=== PATIENT | male | born 1965 | race African-American/Black ===

== ENCOUNTER 2016-04-24 07:58 | Emergency (ER) | payer BC ==
[~2016-04-24] VITALS: Ht 180.3 cm; Wt 110.0 kg
[~2016-04-24 07:58] MED LIST: BENZ1 PO; CLOTCRE17 TOP; GLIP5 PO; LISI20 PO; METF500 PO; NEUR600T PO; RISP1 PO; RISPM2 PO; RIVA15 PO; RIVA20 PO
[2016-04-24 08:01] VITALS: BP 168/95; PULSE 91; RESP 16; TEMP 98.3; O2SAT 98
--- NOTE | 2016-04-24 08:55 | PD ---
HPI Chief Complaint: Cold / Flu Symptoms Time Seen by Provider: 08:49 Travel History International Travel<30 days: No Contact w/Intl Traveler<30days: No Traveled to known affect area: No History of Present Illness HPI 50-year-old Afro-[place]ander male coming in with history of upper respiratory symptoms including congestion, headache, postnasal drip, cough, ear pain, sore throat, and productive cough which is keeping him up at night. Patient denies nausea, vomiting, decreased appetite. Patient has had chills but does not feel he has had a fever. Patient states he's prone to sinus infections. Patient is a nonsmoker. No history of asthma or COPD. Has a history of MRSA. No known drug allergies. PFSH Past Medical History Hx Anticoagulant Therapy: Yes (XARELTO) Arthritis: No Blood Disorders: No Bipolar Disorder: Yes Anxiety: Yes Depression: Yes Heart Rhythm Problems: No Cancer: No Cardiovascular Problems: Yes (HTN) High Cholesterol: No Chemotherapy: No Chest Pain: Yes Congestive Heart Failure: No COPD: No Cerebrovascular Accident: No Diabetes: Yes Diminished Hearing: No Endocrine: Yes Gastrointestinal Disorders: No Genitourinary: Yes (renal problems) Headaches: Yes Hepatitis: Yes (C) Hiatal Hernia: No Hypertension: Yes Immune Disorder: Yes Musculoskeletal: Yes Neurologic: Yes Psychiatric: Yes (BIPOLAR, DEPRESSION, SCHIZOAFFECTIVE DISORDER) Reproductive: No Respiratory: Yes (PULMONARY EMBOLISM 11/21) Immunizations Current: Yes Radiation Therapy: No Renal Failure: Yes Schizophrenia: Yes Sickle Cell Disease: No Sleep Apnea: Yes Thyroid Disease: No Ulcer: No Past Surgical History Abdominal Surgery: No Arteriovenous Shunt: No Cardiac Surgery: No Ear Surgery: No Endocrine Surgery: No Eye Surgery: No Genitourinary Surgery: No Gynecologic Surgery: No Insulin Pump: No Joint Replacement: No Neurologic Surgery: No Oral Surgery: No Thoracic Surgery: No Other Surgery: Yes (lioma removed from back of neck and left side of back) Social History Alcohol Use: Yes (occasional) Tobacco Use: Yes (occasional) Substance Use: Yes Allergies-Medications (Allergen,Severity, Reaction): Coded Allergies: *MDRO Multi-Drug Resistant Organism (Verified Adverse Reaction, Unknown, ) MRSA (wounds) - 2001 & 2004 MRSA PCR (nares) negative - 06/11/15 & 06/13/15. Cleared per Infection Control Reported Meds & Prescriptions Reported Meds & Active Scripts Active Review of Systems Except as stated in HPI: all other systems reviewed are Neg General / Constitutional: No: Fever Eyes: No: Visual changes HENT: Positive: Vertigo, Sore Throat, Rhinitis, Rhinorrhea, Congestion, Earache , No: Headaches, Lightheadedness, Nosebleed, Neck Stiffness, Neck Pain, Masses , Gingival Bleeding, Dental Difficulties, Ear Discharge Cardiovascular: No: Chest Pain or Discomfort Respiratory: Positive: Cough, No: Shortness of Breath, Wheezing, Sneezing Gastrointestinal: No: Nausea, Vomiting, Diarrhea, Abdominal Pain Genitourinary: No: Dysuria Musculoskeletal: No: Pain Skin: No Rash Neurologic: No: Weakness Psychiatric: No: Depression Endocrine: No: Polydipsia Hematologic/Lymphatic: No: Easy Bruising Physical Exam Narrative GENERAL: Patient appears in mild to moderate distress. SKIN: Warm and mild diaphoresis. Normal color. Normal turgor. HEAD: Atraumatic. Normocephalic. Patient has moderate sinus tenderness in both frontal and maxillary sinuses. EYES: Pupils equal and round. No scleral icterus. No injection or drainage. ENT: No nasal bleeding and moderate purulent nasal discharge. Mucous membranes injected, boggy and moist. Posterior pharynx is cobblestoned with erythema and postnasal drip present. No significant lymphadenopathy. TMs are somewhat dull bilaterally with mild injection. NECK: Trachea midline. No JVD. Supple nontender CARDIOVASCULAR: Regular rate and rhythm. RESPIRATORY: No accessory muscle use. Coarse without wheeze, rhonchi, or rales to auscultation. Breath sounds equal bilaterally. GASTROINTESTINAL: Abdomen soft, non-tender, nondistended. Hepatic and splenic margins not palpable. MUSCULOSKELETAL: Extremities without clubbing, cyanosis, or edema. No obvious deformities. NEUROLOGICAL: Awake and alert. No obvious cranial nerve deficits. Motor grossly within normal limits. Five out of 5 muscle strength in the arms and legs. Normal speech. PSYCHIATRIC: Appropriate mood and affect; insight and judgment normal. Data Data Last Documented VS Vital Signs Date Time Temp Pulse Resp B/P Pulse Ox O2 Delivery O2 Flow Rate FiO2 04/24/16 08:01 98.3 91 16 168/95 98 MDM Medical Decision Making Medical Screen Exam Complete: Yes Emergency Medical Condition: Yes Differential Diagnosis Upper respiratory infection. Sinusitis. Postnasal drip, cough, Narrative Course Patient is medically stable at time of exam. Patient is given amoxicillin 875 twice a day 10 days. Patient is given Flonase nasal spray 2 sprays each nostril daily. Patient is given Robitussin DM 1 teaspoon every 4-6 hours when necessary 120 mL. Patient is given a note for work for today. Patient follow with his primary care physician or return to emergency department as needed. Diagnosis Primary Impression: Sinusitis, acute Qualified Code: J01.40 - Acute non-recurrent pansinusitis Referrals: Primary Care Physician Patient Instructions: General Instructions, Sinusitis (ED) Departure Forms: Work Release Enter return to work date: Apr 25, 2016 Additional Instructions: Patient is given amoxicillin 875 twice a day 10 days. Patient is given Flonase nasal spray 2 sprays each nostril daily. Patient is given Robitussin DM for cough 1 teaspoon every 4-6 hours when necessary 120 mL. Patient is given a note for work for today. Patient follow with his primary care physician or return to emergency department as needed. Med/Other Pt SpecificInfo: Prescription(s) given Scripts Guaifenesin-Dextromethorphan Liq (Guaifenesin DM Liq)10-100 Mg/5 Ml Liq10 Ml PO Q4H PRN (COUGH) #1 BOTTLE Ref 0 Prov:Vannessa Milan DO 04/24/16 Fluticasone Nasal [place] (Flonase Allergy Relief Children Nasal [place])50 Mcg/Act Spray2 [place] EACH NARE DAILY #1 BOTTLE 50 mcg/spray Prov:Vannessa Milan DO 04/24/16 Amoxicillin 875 Mg Qys530 Mg PO BID #20 TAB Prov:Vannessa Milan DO 04/24/16 Disposition: 01 DISCHARGE HOME Condition: Stable Reyes Amanda Apr 24, 2016 08:55
[2016-04-24] MEDS ORDERED: GUAISYP7 PO (08:57)
[2016-04-24] MEDS ORDERED: AMOX875T PO (08:57)
[2016-04-24] MEDS ORDERED: FLUT1SPR9 EACH NARE (08:57)
== END 2016-04-24 09:07 | disposition home or self-care (01) ==
LOC: NEPB 07:58
DX: J01.90 Acute sinusitis, unspecified (principal); F41.8 Other specified anxiety disorders; F31.9 Bipolar disorder, unspecified; I10 Essential (primary) hypertension; E11.9 Type 2 diabetes mellitus without complications; F25.9 Schizoaffective disorder, unspecified; F19.10 Other psychoactive substance abuse, uncomplicated; Z79.01 Long term (current) use of anticoagulants
CPT/HCPCS: 99283

== ENCOUNTER 2016-09-02 18:10 | Emergency (ER) | payer SELFPAY ==
[~2016-09-02 18:10] MED LIST changes: +AMOX875T PO; -BENZ1 PO; -CLOTCRE17 TOP; +FLUT1SPR9 EACH NARE; -GLIP5 PO; +GUAISYP7 PO; -LISI20 PO; -METF500 PO; -NEUR600T PO; -RISP1 PO; -RISPM2 PO; -RIVA15 PO; -RIVA20 PO
[2016-09-02 18:13] VITALS: BP 165/100; PULSE 66; RESP 15; TEMP 98.9; O2SAT 96
== END 2016-09-02 19:46 | disposition left against medical advice (07) ==
LOC: NED 18:10
DX: M79.673 Pain in unspecified foot (principal); Z53.21 Procedure and treatment not carried out due to patient leaving prior to being seen by health care provider
CPT/HCPCS: 99281

== ENCOUNTER 2016-09-07 12:06 | Emergency (ER) | payer SELFPAY ==
[~2016-09-07] VITALS: Ht 180.3 cm; Wt 118.0 kg
[2016-09-07 12:08] VITALS: BP 140/99; PULSE 112; RESP 20; TEMP 97.8; O2SAT 98
[2016-09-07 12:45] VITALS: BP 156/86; PULSE 52; RESP 20; TEMP 98.2; O2SAT 98
--- NOTE | 2016-09-07 12:56 | PD ---
Physical Exam Time Seen by Provider: 12:53 Narrative 50yo M c/o R foot pain and blisters x 2 days. Denies fever, vomiting. Says he smoked K2 yesterday and passed out and has decreased hearing now. Also c/o suicidal thoughts. Patient seen in triage. Awaiting bed placement. VS reviewed. Data Data Last Documented VS Vital Signs Date Time Temp Pulse Resp B/P Pulse Ox O2 Delivery O2 Flow Rate FiO2 09/07/16 12:45 98.2 52 20 156/86 98 Room Air MDM Supervised Visit with JESÚS: Marie Puente Sep 07, 2016 12:56
[2016-09-07 13:40] VITALS: BP_SYST 162; BP_SYST 193; BP_DIAS 106; BP_DIAS 94; PULSE 52; RESP 16; O2SAT 97
--- NOTE | 2016-09-07 13:54 | PD ---
HPI Chief Complaint: Psychiatric Symptoms Time Seen by Provider: 13:54 Travel History International Travel<30 days: No Contact w/Intl Traveler<30days: No Traveled to known affect area: No History of Present Illness HPI 50-year-old male with a history of diabetes presents to the emergency department voluntarily for evaluation of suicidal ideations. The patient states that he has a history of depression, bipolar disorder and substance abuse. States that he has been on a binge with smoking crack cocaine, K2, marijuana and drinking alcohol over the last 2-3 days. States he has not taken his Risperdal in about 5 days. States that he is having thoughts of wanting to hurt himself very denies any homicidal ideations. Denies any attempts to harm himself, denies any ingestion of substances in an attempt to harm himself. He complains of pain in his bilateral plantar feet that has been ongoing for several months. States that he also has pain that shoots from his right foot to his right knee that has been ongoing for several months. He has a history of prior right leg DVT several years ago. No other complaints. PFSH Past Medical History Hx Anticoagulant Therapy: Yes (XARELTO) Arthritis: No Blood Disorders: No Bipolar Disorder: Yes Anxiety: Yes Depression: Yes Heart Rhythm Problems: No Cancer: No Cardiovascular Problems: Yes (HTN) High Cholesterol: No Chemotherapy: No Chest Pain: Yes Congestive Heart Failure: No COPD: No Cerebrovascular Accident: No Diabetes: Yes Patient Takes Glucophage: No Diminished Hearing: No Endocrine: Yes Gastrointestinal Disorders: No Genitourinary: Yes (renal problems) Headaches: Yes Hepatitis: Yes (C) Hiatal Hernia: No Hypertension: Yes Immune Disorder: Yes Musculoskeletal: Yes Neurologic: Yes Psychiatric: Yes (BIPOLAR, DEPRESSION, SCHIZOAFFECTIVE DISORDER) Reproductive: No Respiratory: Yes (PULMONARY EMBOLISM 11/21) Immunizations Current: Yes Radiation Therapy: No Renal Failure: Yes Schizophrenia: Yes Sickle Cell Disease: No Sleep Apnea: Yes Thyroid Disease: No Ulcer: No Influenza Vaccination: Yes Past Surgical History Abdominal Surgery: No Arteriovenous Shunt: No Cardiac Surgery: No Ear Surgery: No Endocrine Surgery: No Eye Surgery: No Genitourinary Surgery: No Gynecologic Surgery: No Insulin Pump: No Joint Replacement: No Neurologic Surgery: No Oral Surgery: No Thoracic Surgery: No Other Surgery: Yes (liPoma removed from back of neck and left side of back) Social History Alcohol Use: Yes (ALCOHOLIC) Tobacco Use: Yes (1/2 PPD) Substance Use: Yes (CRACK AND MARIJUANA) Allergies-Medications (Allergen,Severity, Reaction): Coded Allergies: *MDRO Multi-Drug Resistant Organism (Verified Adverse Reaction, Unknown, ) MRSA (wounds) - 2001 & 2004 MRSA PCR (nares) negative - 06/11/15 & 06/13/15. Cleared per Infection Control Reported Meds & Prescriptions Reported Meds & Active Scripts Active Reported Metformin (Metformin HCl) 500 Mg Tab 500 Mg PO BIDPC With meals Benztropine (Benztropine Mesylate) 0.5 Mg Tab 1 Mg PO DAILY Risperdal (Risperidone) 4 Mg Tab 4 Mg PO HS Risperdal (Risperidone) 3 Mg Tab 3 Mg PO DAILY Review of Systems Except as stated in HPI: all other systems reviewed are Neg Physical Exam Narrative GENERAL: Well-nourished and well-developed male patient in no acute distress who is nontoxic appearing. SKIN: Warm and dry. HEAD: Normocephalic and atraumatic. EYES: No injection, drainage, or hyphema noted. PERRLA. EOMI. ENT: No nasal drainage noted. Oropharynx is clear. NECK: Supple and the trachea is midline. CARDIOVASCULAR: Regular rate and rhythm. RESPIRATORY: Breath sounds are equal bilaterally with no accessory muscle use, wheezing, rhonchi, or crackles. GASTROINTESTINAL: Abdomen is soft, non-tender, and nondistended. MUSCULOSKELETAL: No obvious deformities, swelling, cyanosis, or ecchymosis is present throughout the upper and lower extremities. Patient has full range of motion without any signs of neurovascular compromise. DP pulses are 2+ bilaterally. Bilateral plantar feet with callous formation. NEUROLOGICAL: Awake, alert, and oriented. Normal speech and gait. Cranial nerves are grossly intact. Data Data Last Documented VS Vital Signs Date Time Temp Pulse Resp B/P Pulse Ox O2 Delivery O2 Flow Rate FiO2 09/07/16 13:40 52 16 162/94 97 Room Air 09/07/16 12:45 98.2 Orders Complete Blood Count With Diff (09/07/16 13:53) Comprehensive Metabolic Panel (09/07/16 13:53) Psych Screen (09/07/16 13:53) Drug Screen, Random Urine (09/07/16 13:53) Alcohol (Ethanol) (09/07/16 13:53) Us Leg Venous Doppler (09/07/16 13:53) Labs Laboratory Tests Test 09/07/16 09/07/16 09/07/16 14:00 14:10 15:03 Urine Opiates Screen NEG Urine Barbiturates Screen NEG Urine Amphetamines Screen NEG Urine Benzodiazepines Screen NEG Urine Cocaine Screen POS Urine Cannabinoids Screen POS Sodium Level 141 MEQ/L Potassium Level 4.1 MEQ/L Chloride Level 106 MEQ/L Carbon Dioxide Level 29.5 MEQ/L Anion Gap 6 MEQ/L Blood Urea Nitrogen 11 MG/DL Creatinine 1.12 MG/DL Estimat Glomerular Filtration 85 ML/MIN Rate Random Glucose 120 MG/DL Calcium Level 9.1 MG/DL Total Bilirubin 0.9 MG/DL Aspartate Amino Transf 61 U/L (AST/SGOT) Alanine Aminotransferase 98 U/L (ALT/SGPT) Alkaline Phosphatase 68 U/L Total Protein 8.2 GM/DL Albumin 4.0 GM/DL Ethyl Alcohol Level LESS THAN 3 MG/DL White Blood Count 11.1 TH/MM3 Red Blood Count 4.84 MIL/MM3 Hemoglobin 15.5 GM/DL Hematocrit 45.8 % Mean Corpuscular Volume 94.7 FL Mean Corpuscular Hemoglobin 32.0 PG Mean Corpuscular Hemoglobin 33.8 % Concent Red Cell Distribution Width 12.3 % Platelet Count 220 TH/MM3 Mean Platelet Volume 8.5 FL Neutrophils (%) (Auto) 67.8 % Lymphocytes (%) (Auto) 22.5 % Monocytes (%) (Auto) 6.5 % Eosinophils (%) (Auto) 2.6 % Basophils (%) (Auto) 0.6 % Neutrophils # (Auto) 7.5 TH/MM3 Lymphocytes # (Auto) 2.5 TH/MM3 Monocytes # (Auto) 0.7 TH/MM3 Eosinophils # (Auto) 0.3 TH/MM3 Basophils # (Auto) 0.1 TH/MM3 CBC Comment DIFF FINAL Differential Comment MDM Medical Decision Making Medical Screen Exam Complete: Yes Emergency Medical Condition: Yes Differential Diagnosis Differential: Depression versus adjustment reaction versus anxiety versus PTSD versus psychosis NOS versus mood disorder NOS versus substance induced mood disorder versus ODD versus adjustment reaction versus schizophrenia versus bipolar disorder versus schizoaffective versus electrolyte abnormality Narrative Course Patient presents voluntarily for psychiatric evaluation. Physical examination and vital signs are essentially unremarkable. Patient is complaining of feet pain and right knee and lower leg pain. Physical examination revealed he has calluses on the bottom of his feet, otherwise unremarkable. He's had a right leg DVT. Psych screen has been ordered. CBC is unremarkable. CMP shows slightly elevated LFTs, otherwise unremarkable. Urine tox is positive for cocaine and cannabinoids. EtOH is less than 3. Ultrasound of the right leg is negative for DVT. Patient is medically clear for psychiatric evaluation and disposition. Diagnosis Primary Impression: Substance induced mood disorder Marie Ribeiro Sep 07, 2016 13:54
[2016-09-07] MEDS ORDERED: RISP3 PO (13:57)
[2016-09-07] MEDS ORDERED: RISP4TAB41 PO (13:57)
[2016-09-07] MEDS ORDERED: cogentin (13:57)
[2016-09-07] MEDS ORDERED: METF500T PO (13:58)
[2016-09-07] MEDS ORDERED: BENZ0.5T PO (13:58)
--- NOTE | 2016-09-07 14:38 | RADRPT ---
EXAM DATE/TIME: 09/07/2016 14:07 [facility] COMPARISON: US LEG RIGHT VENOUS DOPPLER, November 22, 2015, 13:28. INDICATIONS : Right leg pain and swelling. MEDICAL HISTORY : Hypertension. Deep venous thrombosis. Hepatitis C. Head trauma. Headache. Pulmonary embolism. Ches t pain. Dyspnea. Sleep apnea. Renal disease and failure. UTI. Diabetes. Lipoma. PTSD. Schizophrenia. Bipolar disorder. Depression. Anxiety. Substance use. Anticoagulant therapy, Xarelto. MRSA. SURGICAL HISTORY : Lipoma back and neck. ENCOUNTER: Subsequent ACUITY: 3 days PAIN SCORE: 4/10 LOCATION: Right leg. TECHNIQUE: Venous ultrasound of the leg was performed from the inguinal ligament to the proximal calf. Real-cathy e, color Doppler and spectral tracing, compression and augmentation techniques were used. FINDINGS: There is normal compressibility of the deep venous system from the inguinal region to the proximal ca lf. No echogenic clot is seen in the lumen of the common femoral, femoral, popliteal, and posterior tibial veins. There is a normal response of the venous system to proximal and distal augmentation an d respiration. CONCLUSION: Negative for deep venous thrombosis. Per Slaughter MD FACR on September 07, 2016 at 14:36 Board Certified Radiologist. This report was verified electronically.
[2016-09-07 14:39] LABS: AMPHETAMINE, URINE NEG (NEG); BARBITURATES, URINE NEG (NEG); COCAINE, URINE POS (NEG)
[2016-09-07 14:50] LABS: ALT (GPT) 98 U/L (12-78); ANION GAP 6 MEQ/L (5-15); AST (GOT) 61 U/L (15-37); BICARBONATE 29.5 MEQ/L (21.0-32.0); BLOOD UREA NITROGEN 11 MG/DL (7-18); CHLORIDE 106 MEQ/L (98-107); GLOMERULAR FILTRATION RATE 85 ML/MIN (>89); POTASSIUM 4.1 MEQ/L (3.5-5.1); SODIUM (NA) 141 MEQ/L (136-145)
[2016-09-07 14:52] LABS: ALKALINE PHOSPHATASE 68 U/L (45-117); TOTAL BILIRUBIN ADULT 0.9 MG/DL (0.2-1.0)
[2016-09-07 15:24] LABS: AUTOMATED NEUTROPHIL # 7.5 TH/MM3 (1.8-7.7); BASOPHIL # 0.1 TH/MM3 (0-0.2); BASOPHIL % 0.6 % (0.0-2.0); EOSINOPHIL # 0.3 TH/MM3 (0-0.4); EOSINOPHIL % 2.6 % (0.0-4.0); HEMATOCRIT 45.8 % (39.0-51.0); HEMO FLAGS DIFF FINAL; LYMPH % 22.5 % (9.0-44.0); LYMPHOCYTE # 2.5 TH/MM3 (1.0-4.8); MEAN CELL VOLUME 94.7 FL (80.0-100.0); MEAN CORPUSCULAR HGB CONC 33.8 % (32.0-36.0); MONO % 6.5 % (0.0-8.0); NEUT % 67.8 % (16.0-70.0); PLATELET COUNT 220 TH/MM3 (150-450); RED BLOOD COUNT 4.84 MIL/MM3 (4.50-5.90); RED CELL DISTRIBUTION WIDTH 12.3 % (11.6-17.2); WHITE BLOOD COUNT 11.1 TH/MM3 (4.0-11.0)
--- NOTE | 2016-09-07 17:30 | PD ---
History of Present Illness Chief Complaint: Psychiatric Symptoms Time Seen by Provider: 17:00 Travel History International Travel<30 Days: No Contact w/Intl Traveler<30days: No Known affected area: No Legal Status Legal Status: Voluntary History of Present Illness: 50-year-old male who brought himself to the emergency department with complaints of suicidal thinking after going on a binge of crack cocaine use, alcohol use and marijuana use. Patient describes a multiyear history of drug and alcohol abuse. He doesn't have an actual plan to kill himself at this time but is surprised to note this physician is not inclined to admit him for psychiatric reasons in the face of his drug abuse. Patient is therefore stating that he wants to get help with detox and rehabilitation and he is willing to return to [facility]. This physician made the observation the patient doesn't really want to kill himself if he wants detox and rehabilitation and the patient agrees. Therefore the patient does not appear to be truly suicidal or depressed but rather unhappy with his circumstances and himself for continuing to use drugs. This physician does not feel the patient should be Yin acted were admitted to a psychiatric unit for these issues. It was explained to the patient that [facility] is the license drug and alcohol treatment facility in this area. They are more likely to accept him for treatment if he is there in front of them asking for assistance. The patient agrees with this plan. PFSH Past Medical History Hx Anticoagulant Therapy: Yes (XARELTO) Arthritis: No Blood Disorders: No Bipolar Disorder: Yes Anxiety: Yes Depression: Yes Heart Rhythm Problems: No Cancer: No Cardiovascular Problems: Yes (HTN) High Cholesterol: No Chemotherapy: No Chest Pain: Yes Congestive Heart Failure: No COPD: No Cerebrovascular Accident: No Diabetes: Yes Patient Takes Glucophage: No Diminished Hearing: No Endocrine: Yes Gastrointestinal Disorders: No Genitourinary: Yes (renal problems) Headaches: Yes Hepatitis: Yes (C) Hiatal Hernia: No Hypertension: Yes Immune Disorder: Yes Musculoskeletal: Yes Neurologic: Yes Psychiatric: Yes (BIPOLAR, DEPRESSION, SCHIZOAFFECTIVE DISORDER) Reproductive: No Respiratory: Yes (PULMONARY EMBOLISM 11/21) Immunizations Current: Yes Radiation Therapy: No Renal Failure: Yes Schizophrenia: Yes Sickle Cell Disease: No Sleep Apnea: Yes Thyroid Disease: No Ulcer: No Influenza Vaccination: Yes Past Surgical History Abdominal Surgery: No Arteriovenous Shunt: No Cardiac Surgery: No Ear Surgery: No Endocrine Surgery: No Eye Surgery: No Genitourinary Surgery: No Gynecologic Surgery: No Insulin Pump: No Joint Replacement: No Neurologic Surgery: No Oral Surgery: No Thoracic Surgery: No Other Surgery: Yes (liPoma removed from back of neck and left side of back) Psychiatric History Psychiatric History Hx Psychiatric Treatment: Patient states short of three weeks ago he was receiving outpatient services from [facility]. Patient states in 2008 he was diagnosis with PTSD, MDD, and Schizoaffective D/O. Patient reports that three months ago he stopped taking his medications. This physician does not find significant objective evidence of a true mental illness in the face of overwhelming drug and alcohol abuse. History of Inpatient Treatment: Yes Guns or firearms in home: No Social History Hx Alcohol Use: Yes (ALCOHOLIC) Hx Tobacco Use: Yes (1/2 PPD) Hx Substance Use: Yes (CRACK AND MARIJUANA) Substance Use Type: Alcohol, Nicotine/Cigarettes Other Substances Used: OCCASIONAL Hx of Substance Use Treatment: No Allergies-Medications (Allergen,Severity, Reaction): Coded Allergies: *MDRO Multi-Drug Resistant Organism (Verified Adverse Reaction, Unknown, ) MRSA (wounds) - 2001 & 2004 MRSA PCR (nares) negative - 06/11/15 & 06/13/15. Cleared per Infection Control Reported Meds & Prescriptions Reported Meds & Active Scripts Active Reported Metformin (Metformin HCl) 500 Mg Tab 500 Mg PO BIDPC With meals Benztropine (Benztropine Mesylate) 0.5 Mg Tab 1 Mg PO DAILY Risperdal (Risperidone) 4 Mg Tab 4 Mg PO HS Risperdal (Risperidone) 3 Mg Tab 3 Mg PO DAILY Review of Systems Except as stated in HPI: all other systems reviewed are Neg Exam Alert: Yes [place]: Person, Place, Date, Situation Mood: Calm Affect: Appropriate Speech: Clear, Logical Eye Contact: Normal Memory Intact: Immediate, Recent, Remote Insight/Judgement Adequate MDM Medical Decision Making Medical Record Reviewed: Yes Assessment/Plan This is a 50-year-old male with a multiyear history of crack cocaine abuse, alcohol abuse, cannabis abuse, etc. He came in voluntarily with suicidal thinking which appears to be situational. He is unhappy with himself or his polysubstance abuse. This physician does not find the patient suffers from significant major mental illness that is unrelated to his drug and alcohol abuse. As he is primarily wanting drug and alcohol treatment at this time, he is not deemed to be acutely suicidal but rather manipulative. This physician feels it is inappropriate and counter therapeutic to admit him to a psychiatric facility that is not license for detox and rehabilitation. Rather he is being referred to [facility] for further treatment. Orders Complete Blood Count With Diff (09/07/16 13:53) Comprehensive Metabolic Panel (09/07/16 13:53) Psych Screen (09/07/16 13:53) Drug Screen, Random Urine (09/07/16 13:53) Alcohol (Ethanol) (09/07/16 13:53) Us Leg Venous Doppler (09/07/16 13:53) Diet Regular Basic (09/07/16 Dinner) Results Vital Signs Date Time Temp Pulse Resp B/P Pulse Ox O2 Delivery O2 Flow Rate FiO2 09/07/16 13:40 52 16 162/94 97 Room Air 09/07/16 12:45 98.2 52 20 156/86 98 Room Air Laboratory Tests Test 09/07/16 09/07/16 09/07/16 14:00 14:10 15:03 Urine Opiates Screen NEG Urine Barbiturates Screen NEG Urine Amphetamines Screen NEG Urine Benzodiazepines Screen NEG Urine Cocaine Screen POS Urine Cannabinoids Screen POS Sodium Level 141 Potassium Level 4.1 Chloride Level 106 Carbon Dioxide Level 29.5 Anion Gap 6 Blood Urea Nitrogen 11 Creatinine 1.12 Estimat Glomerular Filtration 85 Rate Random Glucose 120 Calcium Level 9.1 Total Bilirubin 0.9 Aspartate Amino Transf 61 (AST/SGOT) Alanine Aminotransferase 98 (ALT/SGPT) Alkaline Phosphatase 68 Total Protein 8.2 Albumin 4.0 Ethyl Alcohol Level LESS THAN 3 White Blood Count 11.1 Red Blood Count 4.84 Hemoglobin 15.5 Hematocrit 45.8 Mean Corpuscular Volume 94.7 Mean Corpuscular Hemoglobin 32.0 Mean Corpuscular Hemoglobin 33.8 Concent Red Cell Distribution Width 12.3 Platelet Count 220 Mean Platelet Volume 8.5 Neutrophils (%) (Auto) 67.8 Lymphocytes (%) (Auto) 22.5 Monocytes (%) (Auto) 6.5 Eosinophils (%) (Auto) 2.6 Basophils (%) (Auto) 0.6 Neutrophils # (Auto) 7.5 Lymphocytes # (Auto) 2.5 Monocytes # (Auto) 0.7 Eosinophils # (Auto) 0.3 Basophils # (Auto) 0.1 CBC Comment DIFF FINAL Differential Comment Diagnosis Primary Impression: Adjustment disorder with mixed disturbance of emotions and conduct Additional Impressions: Cocaine abuse Alcohol abuse Problem Qualifiers Mark Carrillo MD Sep 07, 2016 17:30
[2016-09-07 18:33] VITALS: BP 132/71; PULSE 50; RESP 16; O2SAT 98
== END 2016-09-07 21:57 | disposition home or self-care (01) ==
LOC: NEPE 12:06 → NEPJ 21:57
DX: F43.25 Adjustment disorder with mixed disturbance of emotions and conduct (principal); F14.10 Cocaine abuse, uncomplicated; F10.10 Alcohol abuse, uncomplicated; I10 Essential (primary) hypertension; E11.9 Type 2 diabetes mellitus without complications; F20.9 Schizophrenia, unspecified; F31.9 Bipolar disorder, unspecified; F41.9 Anxiety disorder, unspecified
CPT/HCPCS: 80053; 80307; 85025; 93971

== ENCOUNTER 2016-10-12 11:53 | Emergency (ER) | payer SELFPAY ==
[~2016-10-12] VITALS: Ht 180.3 cm; Wt 90.0 kg
[~2016-10-12 11:53] MED LIST changes: -AMOX875T PO; +BENZ0.5T PO; -FLUT1SPR9 EACH NARE; -GUAISYP7 PO; +METF500T PO; +RISP3 PO; +RISP4TAB41 PO
[2016-10-12 11:55] VITALS: BP 189/94; PULSE 92; RESP 17; TEMP 98.7; O2SAT 98
--- NOTE | 2016-10-12 12:06 | PD ---
Physical Exam Time Seen by Provider: 12:05 Narrative 50 y/o male with 2-3 days of R leg pain/ swelling. Vital signs reviewed. Seen at triage desk. Awaiting bed placement. Data Data Last Documented VS Vital Signs Date Time Temp Pulse Resp B/P Pulse Ox O2 Delivery O2 Flow Rate FiO2 10/12/16 11:55 98.7 92 17 189/94 98 MDM Medical Record Reviewed: Yes Supervised Visit with JESÚS: Cleveland Villagomez Oct 12, 2016 12:05
[2016-10-12] MEDS ORDERED: SODIUM CHLOR 0.9% 1000 ML INJ 1,000 ML IV ONE (12:45)
[2016-10-12 12:54] LABS: AUTOMATED NEUTROPHIL # 6.9 TH/MM3 (1.8-7.7); BASOPHIL # 0.1 TH/MM3 (0-0.2); BASOPHIL % 0.7 % (0.0-2.0); EOSINOPHIL # 0.1 TH/MM3 (0-0.4); EOSINOPHIL % 0.7 % (0.0-4.0); HEMATOCRIT 39.2 % (39.0-51.0); HEMO FLAGS DIFF FINAL; LYMPH % 19.6 % (9.0-44.0); LYMPHOCYTE # 1.8 TH/MM3 (1.0-4.8); MEAN CELL VOLUME 95.5 FL (80.0-100.0); MEAN CORPUSCULAR HEMOGLOBIN 32.4 PG (27.0-34.0); MONO % 4.9 % (0.0-8.0); NEUT % 74.1 % (16.0-70.0); PLATELET COUNT 302 TH/MM3 (150-450); WHITE BLOOD COUNT 9.4 TH/MM3 (4.0-11.0)
[2016-10-12 13:14] LABS: ANION GAP 8 MEQ/L (5-15); AST (GOT) 15 U/L (15-37); BICARBONATE 27.3 MEQ/L (21.0-32.0); BLOOD UREA NITROGEN 7 MG/DL (7-18); CHLORIDE 107 MEQ/L (98-107); GLOMERULAR FILTRATION RATE 88 ML/MIN (>89); POTASSIUM 3.5 MEQ/L (3.5-5.1); SODIUM (NA) 142 MEQ/L (136-145)
[2016-10-12 13:17] LABS: ALKALINE PHOSPHATASE 54 U/L (45-117); ALT (GPT) 25 U/L (12-78); TOTAL BILIRUBIN ADULT 0.6 MG/DL (0.2-1.0)
--- NOTE | 2016-10-12 14:49 | PD ---
HPI Chief Complaint: Skin Problem Time Seen by Provider: 12:26 Travel History International Travel<30 days: No Contact w/Intl Traveler<30days: No Traveled to known affect area: No History of Present Illness HPI This is a 50-year-old male who is homeless, has a history of psychiatric disease and substance abuse who presents to the emergency department with pain in both of his feet, constant, severe. He says he's been homeless and he hasn' t been taking care of himself. He does have diabetes and is worried he might have an infection in his feet. His pain and is getting worse and he has pain over his calluses. He denies any fevers or chills. He needs refills on all of his medication. PFSH Past Medical History Hx Anticoagulant Therapy: Yes (XARELTO) Arthritis: No Autoimmune Disease: Yes (hep c) Blood Disorders: No Bipolar Disorder: Yes Anxiety: Yes Depression: Yes Heart Rhythm Problems: No Cancer: No Cardiovascular Problems: Yes (HTN) High Cholesterol: No Chemotherapy: No Chest Pain: Yes Congestive Heart Failure: No COPD: No Cerebrovascular Accident: No Diabetes: Yes Patient Takes Glucophage: No Diminished Hearing: No Endocrine: Yes Gastrointestinal Disorders: No Genitourinary: Yes (renal problems) Headaches: Yes Hepatitis: Yes (C) Hiatal Hernia: No Hypertension: Yes Immune Disorder: Yes Musculoskeletal: Yes Neurologic: Yes Psychiatric: Yes (BIPOLAR, DEPRESSION, SCHIZOAFFECTIVE DISORDER) Reproductive: No Respiratory: Yes (PULMONARY EMBOLISM 11/21) Immunizations Current: Yes Radiation Therapy: No Renal Failure: Yes Schizophrenia: Yes Sickle Cell Disease: No Sleep Apnea: Yes Thyroid Disease: No Ulcer: No Past Surgical History Abdominal Surgery: No Arteriovenous Shunt: No Cardiac Surgery: No Ear Surgery: No Endocrine Surgery: No Eye Surgery: No Genitourinary Surgery: No Gynecologic Surgery: No Insulin Pump: No Joint Replacement: No Neurologic Surgery: No Oral Surgery: No Thoracic Surgery: No Other Surgery: Yes (liPoma removed from back of neck and left side of back) Social History Alcohol Use: Yes (ALCOHOLIC) Tobacco Use: Yes (1/2 PPD) Substance Use: Yes (CRACK AND MARIJUANA) Allergies-Medications (Allergen,Severity, Reaction): Coded Allergies: *MDRO Multi-Drug Resistant Organism (Verified Adverse Reaction, Unknown, ) MRSA (wounds) - 2001 & 2004 MRSA PCR (nares) negative - 06/11/15 & 06/13/15. Cleared per Infection Control Reported Meds & Prescriptions Reported Meds & Active Scripts Active Review of Systems Except as stated in HPI: all other systems reviewed are Neg Physical Exam Narrative GENERAL:Well appearing, no acute distress SKIN: Thickened calluses in the base of both feet. No open wounds. HEAD: Atraumatic. Normocephalic. EYES: Pupils equal and round. No injection or drainage. ENT: Moist mucous membranes NECK: Trachea midline. CARDIOVASCULAR: Regular rate and rhythm. No murmur appreciated. RESPIRATORY: Clear to auscultation. Breath sounds equal bilaterally. GASTROINTESTINAL: Abdomen soft, non-tender, nondistended. MUSCULOSKELETAL: No obvious deformities. NEUROLOGICAL: Awake and alert. No obvious cranial nerve deficits. Moving all extremities. PSYCHIATRIC: Appropriate mood and affect; insight and judgment normal. Data Data Last Documented VS Vital Signs Date Time Temp Pulse Resp B/P Pulse Ox O2 Delivery O2 Flow Rate FiO2 10/12/16 11:55 98.7 92 17 189/94 98 Orders Complete Blood Count With Diff (10/12/16 12:36) Comprehensive Metabolic Panel (10/12/16 12:36) ^ Insert Iv (10/12/16 12:36) Sodium Chlor 0.9% 1000 Ml Inj (Ns 1000 M (10/12/16 12:45) Labs Laboratory Tests Test 10/12/16 12:35 White Blood Count 9.4 TH/MM3 Red Blood Count 4.10 MIL/MM3 Hemoglobin 13.3 GM/DL Hematocrit 39.2 % Mean Corpuscular Volume 95.5 FL Mean Corpuscular Hemoglobin 32.4 PG Mean Corpuscular Hemoglobin 34.0 % Concent Red Cell Distribution Width 13.0 % Platelet Count 302 TH/MM3 Mean Platelet Volume 7.9 FL Neutrophils (%) (Auto) 74.1 % Lymphocytes (%) (Auto) 19.6 % Monocytes (%) (Auto) 4.9 % Eosinophils (%) (Auto) 0.7 % Basophils (%) (Auto) 0.7 % Neutrophils # (Auto) 6.9 TH/MM3 Lymphocytes # (Auto) 1.8 TH/MM3 Monocytes # (Auto) 0.5 TH/MM3 Eosinophils # (Auto) 0.1 TH/MM3 Basophils # (Auto) 0.1 TH/MM3 CBC Comment DIFF FINAL Differential Comment Sodium Level 142 MEQ/L Potassium Level 3.5 MEQ/L Chloride Level 107 MEQ/L Carbon Dioxide Level 27.3 MEQ/L Anion Gap 8 MEQ/L Blood Urea Nitrogen 7 MG/DL Creatinine 1.08 MG/DL Estimat Glomerular Filtration 88 ML/MIN Rate Random Glucose 99 MG/DL Calcium Level 9.0 MG/DL Total Bilirubin 0.6 MG/DL Aspartate Amino Transf 15 U/L (AST/SGOT) Alanine Aminotransferase 25 U/L (ALT/SGPT) Alkaline Phosphatase 54 U/L Total Protein 7.4 GM/DL Albumin 3.8 GM/DL [facility] Medical Decision Making Medical Screen Exam Complete: Yes Emergency Medical Condition: Yes Interpretation(s) Afebrile, mild tachycardia, hypertensive No leukocytosis Electrolytes are reassuring Differential Diagnosis Diabetes, diabetic neuropathy, diabetic foot infection, electrolyte abnormality , noncompliance Narrative Course This is a 50-year-old male who presents to the emergency department with a history of diabetes and homelessness as well as psychiatric disease requesting refills on his medication. He also has calluses on the base of both feet and was concerned that he may have an infection. Patient has no evidence of acute infection on the feet and he otherwise has a benign exam. Labs and vital signs are reassuring. I think he will be discharged home. Diagnosis Primary Impression: Diabetic neuropathy Qualified Code: E11.42 - Diabetic polyneuropathy associated with type 2 diabetes mellitus Patient Instructions: General Instructions Additional Instructions: If you develop severe chest pain, shortness of breath, sweating, lightheadedness , dizziness or difficulty breathing return to the emergency department immediately. Followup with your primary care physician in 2-3 days if your symptoms are not resolved. Med/Other Pt SpecificInfo: Prescription(s) given Scripts Gabapentin 100 Mg [id number] Mg PO TID PRN (PAIN SCALE 4 TO 10) #90 CAP Ref 0 Prov:Barbara Rainey MD 10/12/16 Benztropine 0.5 Mg Tab0.5 Mg PO HS #30 TAB Ref 0 Prov:Barbara Rainey MD 10/12/16 Risperidone (Risperdal)1 Mg Tab1 Mg PO DAILY #30 TAB Ref 0 Prov:Barbara Rainey MD 10/12/16 Metformin 500 Mg [id number] Mg PO BIDPC #60 TAB Ref 0 With meals Prov:Barbara Rainey MD 10/12/16 Barbara Rainey MD Oct 12, 2016 14:49
[2016-10-12] MEDS ORDERED: METF500T PO (14:55)
[2016-10-12] MEDS ORDERED: RISP1 PO (14:55)
[2016-10-12] MEDS ORDERED: GABA100C4 PO (14:55)
[2016-10-12] MEDS ORDERED: BENZ0.5T PO (14:55)
== END 2016-10-12 15:22 | disposition home or self-care (01) ==
LOC: NEPE 11:53
DX: E11.42 Type 2 diabetes mellitus with diabetic polyneuropathy (principal); I10 Essential (primary) hypertension; F17.200 Nicotine dependence, unspecified, uncomplicated; Z59.0 Homelessness
CPT/HCPCS: 80053; 85025; 96360; 99284; J7030

== ENCOUNTER 2016-11-17 16:57 | Emergency (ER) | payer SELFPAY ==
[~2016-11-17] VITALS: Ht 180.3 cm; Wt 85.0 kg
[~2016-11-17 16:57] MED LIST changes: +GABA100C4 PO; +RISP1 PO; -RISP3 PO; -RISP4TAB41 PO
[2016-11-17 17:01] VITALS: BP 181/98; PULSE 98; RESP 18; TEMP 97.8; O2SAT 98
[2016-11-17 17:44] LABS: AUTOMATED NEUTROPHIL # 4.8 TH/MM3 (1.8-7.7); BASOPHIL # 0.1 TH/MM3 (0-0.2); BASOPHIL % 1.1 % (0.0-2.0); EOSINOPHIL # 0.1 TH/MM3 (0-0.4); HEMO FLAGS DIFF FINAL; LYMPH % 25.8 % (9.0-44.0); LYMPHOCYTE # 1.9 TH/MM3 (1.0-4.8); MEAN CELL VOLUME 97.1 FL (80.0-100.0); MEAN CORPUSCULAR HEMOGLOBIN 33.6 PG (27.0-34.0); MEAN CORPUSCULAR HGB CONC 34.6 % (32.0-36.0); NEUT % 67.1 % (16.0-70.0); PLATELET COUNT 254 TH/MM3 (150-450); RED BLOOD COUNT 4.53 MIL/MM3 (4.50-5.90); RED CELL DISTRIBUTION WIDTH 13.2 % (11.6-17.2); WHITE BLOOD COUNT 7.2 TH/MM3 (4.0-11.0)
[2016-11-17 18:02] LABS: BLOOD, URINE NEG (NEG); COMMENT (UR) CULT NOT INDICATED; CULTURE IF INDICATED CULT NOT INDICATED; GLUCOSE,URINE NEG (NEG); KETONE, URINE NEG (NEG); MUCUS URINE FEW /lpf (OCC); NITRITE,URINE NEG (NEG); SQUAMOUS EPITHELIAL CELL URINE <1 /hpf (0-5); URINE COLOR YELLOW (YELLW/STRAW)
[2016-11-17] MEDS ORDERED: BENZ0.5T PO (18:03)
[2016-11-17 18:08] LABS: ANION GAP 5 MEQ/L (5-15); AST (GOT) 10 U/L (15-37); BICARBONATE 30.3 MEQ/L (21.0-32.0); BLOOD UREA NITROGEN 9 MG/DL (7-18); CHLORIDE 106 MEQ/L (98-107); GLOMERULAR FILTRATION RATE 88 ML/MIN (>89); POTASSIUM 3.7 MEQ/L (3.5-5.1); SODIUM (NA) 141 MEQ/L (136-145)
[2016-11-17 18:10] LABS: ALT (GPT) 21 U/L (12-78)
[2016-11-17 18:12] LABS: ALKALINE PHOSPHATASE 69 U/L (45-117); TOTAL BILIRUBIN ADULT 0.4 MG/DL (0.2-1.0)
[2016-11-17 18:13] LABS: ALCOHOL LESS THAN 3 MG/DL (0-5)
[2016-11-17 18:15] LABS: ACETAMINOPHEN LESS THAN 2.0 MCG/ML (10.0-30.0)
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
[2016-11-17 23:14] VITALS: BP 145/76; PULSE 54; RESP 18; O2SAT 96
[2016-11-18 02:10] VITALS: BP_SYST 161; BP_SYST 96; BP_DIAS 52; BP_DIAS 74; PULSE 55; PULSE 77; RESP 18; O2SAT 98; O2SAT 99
[2016-11-18 06:21] VITALS: BP 140/67; PULSE 51; RESP 18; O2SAT 96
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
[2016-11-18 11:37] VITALS: BP 140/67; PULSE 51; O2SAT 96
--- NOTE | 2016-11-18 11:54 | PD ---
Physical Exam Time Seen by Provider: 11:52 KEZIA Jiménez has evaluated the patient and the patient will be discharged home. He is going to follow up with Antonio Euceda tomorrow. Patient contracts safety and denies suicidal or homicidal ideations. Patient is medically cleared for discharge. Data Data Last Documented VS Vital Signs Date Time Temp Pulse Resp B/P (MAP) Pulse Ox O2 Delivery O2 Flow Rate FiO2 11/18/16 11:37 51 140/67 (91) 96 Room Air 11/18/16 06:21 18 11/17/16 17:01 97.8 Orders Orders Complete Blood Count With Diff (11/17/16 17:21) Comprehensive Metabolic Panel (11/17/16 17:21) Urinalysis - C+S If Indicated (11/17/16 17:21) Psych Screen (11/17/16 17:21) Drug Screen, Random Urine (11/17/16 17:21) Alcohol (Ethanol) (11/17/16 17:21) Salicylates (Aspirin) (11/17/16 17:21) Tylenol (Acetaminophen) (11/17/16 17:21) Diet 1800 Ada Cons Carb (11/18/16 Breakfast) Diet Regular Basic (11/18/16 Lunch) Labs Laboratory Tests Test 11/17/16 17:31 11/17/16 17:34 White Blood Count 7.2 TH/MM3 Red Blood Count 4.53 MIL/MM3 Hemoglobin 15.2 GM/DL Hematocrit 44.0 % Mean Corpuscular Volume 97.1 FL Mean Corpuscular Hemoglobin 33.6 PG Mean Corpuscular Hemoglobin Concent 34.6 % Red Cell Distribution Width 13.2 % Platelet Count 254 TH/MM3 Mean Platelet Volume 8.5 FL Neutrophils (%) (Auto) 67.1 % Lymphocytes (%) (Auto) 25.8 % Monocytes (%) (Auto) 5.0 % Eosinophils (%) (Auto) 1.0 % Basophils (%) (Auto) 1.1 % Neutrophils # (Auto) 4.8 TH/MM3 Lymphocytes # (Auto) 1.9 TH/MM3 Monocytes # (Auto) 0.4 TH/MM3 Eosinophils # (Auto) 0.1 TH/MM3 Basophils # (Auto) 0.1 TH/MM3 CBC Comment DIFF FINAL Differential Comment Blood Urea Nitrogen 9 MG/DL Creatinine 1.09 MG/DL Random Glucose 140 MG/DL Total Protein 7.5 GM/DL Albumin 3.7 GM/DL Calcium Level 8.6 MG/DL Alkaline Phosphatase 69 U/L Aspartate Amino Transf (AST/SGOT) 10 U/L Alanine Aminotransferase (ALT/SGPT) 21 U/L Total Bilirubin 0.4 MG/DL Sodium Level 141 MEQ/L Potassium Level 3.7 MEQ/L Chloride Level 106 MEQ/L Carbon Dioxide Level 30.3 MEQ/L Anion Gap 5 MEQ/L Estimat Glomerular Filtration Rate 88 ML/MIN Salicylates Level 2.9 MG/DL Acetaminophen Level LESS THAN 2.0 MCG/ML Ethyl Alcohol Level LESS THAN 3 MG/DL Urine Color YELLOW Urine Turbidity CLEAR Urine pH 6.0 Urine Specific Chapman 1.020 Urine Protein NEG mg/dL Urine Glucose (UA) NEG mg/dL Urine Ketones NEG mg/dL Urine Occult Blood NEG Urine Nitrite NEG Urine Bilirubin NEG Urine Urobilinogen LESS THAN 2.0 MG/DL Urine Leukocyte Esterase NEG Urine RBC LESS THAN 1 /hpf Urine WBC 1 /hpf Urine Squamous Epithelial Cells <1 /hpf Urine Mucus FEW /lpf Microscopic Urinalysis Comment CULT NOT INDICATED Urine Opiates Screen NEG Urine Barbiturates Screen NEG Urine Amphetamines Screen NEG Urine Benzodiazepines Screen NEG Urine Cocaine Screen POS Urine Cannabinoids Screen NEG MDM Supervised Visit with JESÚS: No Diagnosis Primary Impression: Suicidal ideation Additional Impression: Cocaine abuse Referrals: Primary Care Physician Psychiatrist [facility] Patient Instructions: Cocaine Abuse (ED), General Instructions Additional Instruction: Contract safety to your self and others Stop doing drugs Follow-up with psychiatry Follow-up with primary care provider Follow-up with Antonio Euceda Return to the emergency department immediately with worsening of symptoms Med/Other Pt SpecificInfo: No Meds Exist/No RX given Disposition: 01 DISCHARGE HOME Condition: Stable Marie Dudley [employer] Nov 18, 2016 11:54
== END 2016-11-18 12:37 | disposition home or self-care (01) ==
LOC: NEPD 16:57 → NEPJ 11-18 12:37
DX: F19.94 Other psychoactive substance use, unspecified with psychoactive substance-induced mood disorder (principal); F25.9 Schizoaffective disorder, unspecified; R45.851 Suicidal ideations; F14.90 Cocaine use, unspecified, uncomplicated; I10 Essential (primary) hypertension; E11.9 Type 2 diabetes mellitus without complications
CPT/HCPCS: 80053; 80307; 81001; 85025; 99284

== ENCOUNTER 2016-12-01 22:34 | Emergency (ER) | payer SELFPAY ==
[~2016-12-01] VITALS: Ht 180.3 cm; Wt 84.0 kg
[2016-12-01 22:40] VITALS: BP 162/84; PULSE 81; RESP 18; TEMP 99.1; O2SAT 97
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
[2016-12-01] MEDS ORDERED: ACETAMINOPHEN/HYDROcodone 325 MG/5 MG TAB PO ONE (23:45)
--- NOTE | 2016-12-01 23:45 | RADRPT ---
EXAM DATE/TIME: 12/01/2016 23:20 [facility] COMPARISON: HAND RIGHT COMPLETE ([id number]), June 14, 2015, 16:26. INDICATIONS : Right hand pain. MEDICAL HISTORY : None. SURGICAL HISTORY : None. ENCOUNTER: Initial ACUITY: 1 day PAIN SCORE: 8/10 LOCATION: Right hand. FINDINGS: 3 views of the right hand reveal acute nondisplaced fracture involving the distal metadiaphysis of th e fourth metacarpal. No angulation or distraction. No extension to the articular surface is appreciat ed. Dorsal soft tissue swelling. Remaining bony structures are unremarkable. CONCLUSION: Acute nondisplaced fourth metacarpal fracture as detailed above. Edmar Rivers Jr., MD on December 01, 2016 at 23:42 Board Certified Radiologist. This report was verified electronically.
[2016-12-01] MEDS ORDERED: HYDR-3533 PO (23:46)
== END 2016-12-02 01:15 | disposition home or self-care (01) ==
LOC: NEPD 22:34
DX: S62.304A Unspecified fracture of fourth metacarpal bone, right hand, initial encounter for closed fracture (principal); W22.09XA Striking against other stationary object, initial encounter; I10 Essential (primary) hypertension; Z86.711 Personal history of pulmonary embolism; Z79.01 Long term (current) use of anticoagulants; F20.9 Schizophrenia, unspecified
CPT/HCPCS: 29125; 73130

== ENCOUNTER 2017-07-30 07:11 | Emergency (ER) | payer OTHER ==
[~2017-07-30 07:11] MED LIST changes: -BENZ0.5T PO; +CYCL5TAB PO; +EC-N375T PO; -GABA100C4 PO; +LISI10TA3 PO; +PALI117P IM; -RISP1 PO
[2017-07-30 07:13] VITALS: BP 154/83; PULSE 76; RESP 16; TEMP 98.5; O2SAT 96
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
[2017-07-30 09:50] LABS: AUTOMATED NEUTROPHIL # 8.7 TH/MM3 (1.8-7.7); BASOPHIL # 0.1 TH/MM3 (0-0.2); BASOPHIL % 0.6 % (0.0-2.0); EOSINOPHIL # 0.1 TH/MM3 (0-0.4); HEMATOCRIT 38.7 % (39.0-51.0); HEMOGLOBIN 13.5 GM/DL (13.0-17.0); LYMPH % 19.9 % (9.0-44.0); LYMPHOCYTE # 2.4 TH/MM3 (1.0-4.8); MEAN CELL VOLUME 92.6 FL (80.0-100.0); MEAN CORPUSCULAR HEMOGLOBIN 32.3 PG (27.0-34.0); MEAN CORPUSCULAR HGB CONC 34.9 % (32.0-36.0); MEAN PLATELET VOLUME 8.2 FL (7.0-11.0); MONO % 5.3 % (0.0-8.0); MONOCYTE # 0.6 TH/MM3 (0-0.9); NEUT % 73.2 % (16.0-70.0); PLATELET COUNT 241 TH/MM3 (150-450); RED BLOOD COUNT 4.18 MIL/MM3 (4.50-5.90); RED CELL DISTRIBUTION WIDTH 12.4 % (11.6-17.2); WHITE BLOOD COUNT 11.8 TH/MM3 (4.0-11.0)
[2017-07-30 10:10] LABS: ALBUMIN 3.5 GM/DL (3.4-5.0); AST (GOT) 17 U/L (15-37); BICARBONATE 27.1 MEQ/L (21.0-32.0); BLOOD UREA NITROGEN 7 MG/DL (7-18); CALCIUM 8.7 MG/DL (8.5-10.1); CHLORIDE 107 MEQ/L (98-107); CREATININE 1.16 MG/DL (0.60-1.30); GLOMERULAR FILTRATION RATE 81 ML/MIN (>89); GLUCOSE,RANDOM 147 MG/DL (74-106); SODIUM (NA) 141 MEQ/L (136-145)
[2017-07-30 10:12] LABS: ALT (GPT) 33 U/L (12-78)
[2017-07-30 10:21] LABS: ALKALINE PHOSPHATASE 62 U/L (45-117); TOTAL BILIRUBIN ADULT 0.5 MG/DL (0.2-1.0)
[2017-07-30 10:35] LABS: ACETAMINOPHEN LESS THAN 2.0 MCG/ML (10.0-30.0)
[2017-07-30 17:44] VITALS: BP 150/82; PULSE 68; RESP 12; TEMP 99.5; O2SAT 98
[2017-07-30 19:46] VITALS: BP 157/83; PULSE 71; RESP 18; TEMP 99.1; O2SAT 94
[2017-07-31 01:05] VITALS: BP 169/89; PULSE 62; RESP 18; TEMP 99.1; O2SAT 97
--- NOTE | 2017-07-31 10:13 | PD ---
Physical Exam Time Seen by Provider: 10:11 KEZIA Talavera has evaluated the patient and cleared the patient for discharge. Data Data Last Documented VS Vital Signs Date Time Temp Pulse Resp B/P (MAP) Pulse Ox O2 Delivery O2 Flow Rate FiO2 07/31/17 01:05 99.1 62 18 169/89 (115) 97 07/30/17 19:46 Room Air Orders Orders Complete Blood Count With Diff (07/30/17 07:44) Comprehensive Metabolic Panel (07/30/17 07:44) Thyroid Stimulating Hormone (07/30/17 07:44) Psych Screen (07/30/17 07:44) Drug Screen, Random Urine (07/30/17 07:44) Alcohol (Ethanol) (07/30/17 07:44) Salicylates (Aspirin) (07/30/17 07:44) Tylenol (Acetaminophen) (07/30/17 07:44) Diet Diabetic (07/30/17 Dinner) Diet Regular Basic (07/31/17 Breakfast) Ed Discharge Order (07/31/17 10:13) Labs Laboratory Tests Test 07/30/17 09:10 07/30/17 09:40 White Blood Count 11.8 TH/MM3 Red Blood Count 4.18 MIL/MM3 Hemoglobin 13.5 GM/DL Hematocrit 38.7 % Mean Corpuscular Volume 92.6 FL Mean Corpuscular Hemoglobin 32.3 PG Mean Corpuscular Hemoglobin Concent 34.9 % Red Cell Distribution Width 12.4 % Platelet Count 241 TH/MM3 Mean Platelet Volume 8.2 FL Neutrophils (%) (Auto) 73.2 % Lymphocytes (%) (Auto) 19.9 % Monocytes (%) (Auto) 5.3 % Eosinophils (%) (Auto) 1.0 % Basophils (%) (Auto) 0.6 % Neutrophils # (Auto) 8.7 TH/MM3 Lymphocytes # (Auto) 2.4 TH/MM3 Monocytes # (Auto) 0.6 TH/MM3 Eosinophils # (Auto) 0.1 TH/MM3 Basophils # (Auto) 0.1 TH/MM3 CBC Comment DIFF FINAL Differential Comment Blood Urea Nitrogen 7 MG/DL Creatinine 1.16 MG/DL Random Glucose 147 MG/DL Total Protein 7.0 GM/DL Albumin 3.5 GM/DL Calcium Level 8.7 MG/DL Alkaline Phosphatase 62 U/L Aspartate Amino Transf (AST/SGOT) 17 U/L Alanine Aminotransferase (ALT/SGPT) 33 U/L Total Bilirubin 0.5 MG/DL Sodium Level 141 MEQ/L Potassium Level 4.0 MEQ/L Chloride Level 107 MEQ/L Carbon Dioxide Level 27.1 MEQ/L Anion Gap 7 MEQ/L Estimat Glomerular Filtration Rate 81 ML/MIN Thyroid Stimulating Hormone 3rd Gen 0.010 uIU/ML Salicylates Level 4.2 MG/DL Acetaminophen Level LESS THAN 2.0 MCG/ML Ethyl Alcohol Level LESS THAN 3 MG/DL Urine Opiates Screen NEG Urine Barbiturates Screen NEG Urine Amphetamines Screen NEG Urine Benzodiazepines Screen NEG Urine Cocaine Screen POS Urine Cannabinoids Screen POS MDM Supervised Visit with JESÚS: No Narrative Course KEZIA Robledo has evaluated the patient and cleared the patient for discharge. Patient contracts safety. Denies suicidal or homicidal ideations. Patient will be provided community resource packet to /PAULINO for follow-up. Has friends and family for support. Patient was medically cleared by alternate provider prior to psych screening. Patient has been evaluated by psychiatry and and is now cleared for discharge. Diagnosis Primary Impression: Adjustment disorder Additional Impression: Low TSH level Referrals: [facility] (Out patient) [facility] Primary Care Physician Psychiatrist [facility] Patient Instructions: General Instructions, Hyperthyroidism (ED), Mood Disorders (ED) Additional Instruction: Follow-up with primary care provider in regards to your low TSH level Contract safety to your self and others Follow-up with psychiatry Follow-up with primary care provider Follow-up with Jono Damon Return to the emergency department immediately with worsening of symptoms Med/Other Pt SpecificInfo: No Change to Meds, No Meds Exist/No RX given Disposition: 01 DISCHARGE HOME Condition: Stable Marie Dudley July 31, 2017 10:13
--- NOTE | 2017-07-31 10:15 | PD ---
History of Present Illness Chief Complaint: Psychiatric Symptoms Time Seen by Provider: 09:59 Travel History International Travel<30 Days: No Contact w/Intl Traveler<30days: No Known affected area: No Legal Status Legal Status: Voluntary History of Present Illness: This is a 51 year-old, , -[place] male who presents voluntarily to this facility for reported depression and suicidal ideation. Patient is well- known to this facility. His last inpatient admission was 07/02/15 at this facility for an attempted overdose. Patient was admitted to the medical side initially then transferred for psychiatric treatment. Reviewed electronic medical record, labs, and discussed case with staff. Patient was evaluated in his room in [facility]. He was found lying quietly on his bed in no apparent distress, alert and oriented X 4 his speech is clear, logical and organized. There is no indication of internal stimulation or thought blocking. He reports that he has been compliant with follow-up at [facility] and his last injection was 07/31/17. He denies suicidal ideation, homicidal ideation, auditory or visual hallucinations. I can elicit no delusional material. His mood is good his affect is euthymic. He reports that he has spoken by telephone with his mother who is sending him a bus ticket to return to [place]. Patient is requesting to be discharged. He maintains eye contact throughout, answers all questions appropriately, and shows no outward signs of distress. PFSH Past Medical History Hx Anticoagulant Therapy: Yes (XARELTO) Arthritis: No Autoimmune Disease: Yes (hep c) Blood Disorders: No Bipolar Disorder: Yes Anxiety: Yes Depression: Yes Heart Rhythm Problems: No Cancer: No Cardiovascular Problems: Yes (HTN, DVT) High Cholesterol: No Chemotherapy: No Chest Pain: Yes Congestive Heart Failure: No COPD: No Cerebrovascular Accident: No Diabetes: Yes Patient Takes Glucophage: No Diminished Hearing: No Endocrine: Yes Gastrointestinal Disorders: No Genitourinary: Yes (renal problems) Headaches: Yes Hepatitis: Yes (C antibodies) Hiatal Hernia: No Hypertension: Yes Immune Disorder: Yes Musculoskeletal: Yes Neurologic: Yes Psychiatric: Yes (BIPOLAR, DEPRESSION, SCHIZOAFFECTIVE DISORDER) Reproductive: No Respiratory: Yes (PE) Immunizations Current: Yes Radiation Therapy: No Renal Failure: Yes Schizophrenia: Yes Sickle Cell Disease: No Sleep Apnea: Yes Thyroid Disease: No Ulcer: No Tetanus Vaccination: > 5 Years Influenza Vaccination: No Past Surgical History Abdominal Surgery: No Arteriovenous Shunt: No Cardiac Surgery: No Ear Surgery: No Endocrine Surgery: No Eye Surgery: No Genitourinary Surgery: No Gynecologic Surgery: No Insulin Pump: No Joint Replacement: No Neurologic Surgery: No Oral Surgery: No Thoracic Surgery: No Other Surgery: Yes (liPoma removed from back of neck and left side of back) Psychiatric History Psychiatric History Multiple inpatient admissions. Is treated outpatient by [facility]. Hx Psychiatric Treatment: [facility] History of Inpatient Treatment: Yes Social History Patient has been seen at this facility on multiple occasions. Typically he comes in after a breakup with a significant other stating that he feels suicidal. His most recent relationship ended and he repeated the cycle. He reports that he will be moving back to [place] with his mother upon discharge. Hx Alcohol Use: Yes Hx Tobacco Use: Yes (1/2 PPD) Hx Substance Use: Yes Substance Use Type: Alcohol, Marijuana, Cocaine Other Substances Used: EACH TIME ADMITTED PT USING MJ COCAINE ETOH Hx of Substance Use Treatment: Yes Allergies-Medications (Allergen,Severity, Reaction): Coded Allergies: *MDRO Multi-Drug Resistant Organism (Verified Adverse Reaction, Unknown, ) MRSA (wounds) - 2001 & 2004 MRSA PCR (nares) negative - 06/11/15 & 06/13/15. Cleared per Infection Control Reported Meds & Prescriptions Reported Meds & Active Scripts Active Metformin (Metformin HCl) 500 Mg Tab 500 Mg PO BIDPC With meals Reported Lisinopril 10 Mg Tab 10 Mg PO BID Invega Sustenna Inj (Paliperidone Palmitate) 117 Mg/0.75 Ml Inj 117 Mg IM ONCE Mental Status Examination Appearance: Appropriate Consciousness: Alert Orientation: x4 Motor Activity: Normal gait Speech: Unremarkable Language: Adequate Fund of Knowledge: Adequate Attention and Concentration: Adequate Memory: Unremarkable Mood: Appropriate, Good Affect: Appropriate, Euthymic Thought Process & Associations: Intact, Logical Thought Content: Appropriate Hallucination Type: None Delusion Type: None Suicidal Ideation: No Suicidal Plan: No Suicidal Intention: No Homicidal Ideation: No Homicidal Plan: No Homicidal Intention: No Insight: Adequate Judgment: Adequate [facility] Medical Decision Making Medical Record Reviewed: Yes Assessment/Plan This is a 51-year-old , -[place] male who presents voluntarily to this facility for reported depression and suicidal ideation. Upon examination today patient is awake, alert, and oriented 4. His mood is good as affect is euthymic. He denies any suicidal ideation, homicidal ideation, auditory or visual hallucinations. I can elicit no delusional material. He does not appear to be internally stimulated nor is or thought blocking present. He reports compliance with his medication regimen and states that his last injection was on July 31, 2017 at [facility]. Patient does not meet admission criteria nor [facility] criteria. He has expressed a desire to be discharged and reports that his mother is sending him a ticket to return to [facility] by bus. He will be discharged with instructions to continue follow- up in [facility] for his injectable medication and advised to return to this facility if he remains in the area and his condition should worsen. Orders Orders Diet Diabetic (07/30/17 Dinner) Diet Regular Basic (07/31/17 Breakfast) Results Vital Signs Date Time Temp Pulse Resp B/P (MAP) Pulse Ox O2 Delivery O2 Flow Rate FiO2 07/31/17 01:05 99.1 62 18 169/89 (115) 97 07/30/17 19:46 99.1 71 18 157/83 (107) 94 Room Air 07/30/17 17:44 99.5 68 12 150/82 (104) 98 Room Air Diagnosis Primary Impression: Adjustment disorder Psychiatrically Cleared: Yes Referrals: Primary Care Physician Additional Instructions: Follow-up with primary care provider in regards to your low TSH level Condition: Stable Danika Michael July 31, 2017 10:15
[2017-07-31 10:41] VITALS: BP 181/90; PULSE 62; RESP 18; O2SAT 96
== END 2017-07-31 11:36 | disposition home or self-care (01) ==
LOC: NEPD 07:11 → NEPJ 07-31 11:36
DX: F43.20 Adjustment disorder, unspecified (principal); E11.9 Type 2 diabetes mellitus without complications; I10 Essential (primary) hypertension; F17.200 Nicotine dependence, unspecified, uncomplicated; F12.90 Cannabis use, unspecified, uncomplicated; Z79.84 Long term (current) use of oral hypoglycemic drugs; Z79.899 Other long term (current) drug therapy
CPT/HCPCS: 80053; 80307; 84443; 85025; 99283

== ENCOUNTER 2017-08-22 08:59 | Emergency (ER) | payer SELFPAY ==
[~2017-08-22] VITALS: Ht 180.3 cm; Wt 109.0 kg
[~2017-08-22 08:59] MED LIST changes: -CYCL5TAB PO; -EC-N375T PO
[2017-08-22 09:12] VITALS: BP 130/77; PULSE 58; RESP 16; TEMP 98.9; O2SAT 98
--- NOTE | 2017-08-22 09:32 | PD ---
HPI Chief Complaint: Pain: Acute or Chronic Time Seen by Provider: 09:23 Travel History International Travel<30 days: No Contact w/Intl Traveler<30days: No Traveled to known affect area: No History of Present Illness HPI 51-year-old male who has history of hypertension diabetes, presents emergency department for evaluation of bilateral foot pain. Patient states he is homeless. He has been walking long distances. His use of the lap. He would like his feet evaluated. Pain is constant, aching. He is concerned his skin is white. He has no other symptoms to report. History Past Medical Histgory Hx Cancer: No Hx Chemotherapy: No Hx Radiation Therapy: No Hx Diabetes: Yes Social History Alcohol Use: Yes Tobacco Use: Yes (1/2 PPD) Allergies-Medications (Allergen,Severity, Reaction): Coded Allergies: *MDRO Multi-Drug Resistant Organism (Verified Adverse Reaction, Unknown, ) MRSA (wounds) - 2001 & 2004 MRSA PCR (nares) negative - 06/11/15 & 06/13/15. Cleared per Infection Control Reported Meds & Prescriptions Reported Meds & Active Scripts Active Metformin (Metformin HCl) 500 Mg Tab 500 Mg PO BIDPC With meals Reported Lisinopril 10 Mg Tab 10 Mg PO BID Invega Sustenna Inj (Paliperidone Palmitate) 117 Mg/0.75 Ml Inj 117 Mg IM ONCE Review of Systems Except as stated in HPI: all other systems reviewed are Neg Physical Exam Narrative GENERAL: Well-nourished, well-developed male patient in no acute distress SKIN: Focused skin assessment warm/dry. Patient's feet have skin intact. There are calluses on the bottom of his feet. There is no cracking. The feet are dry. Distal pulses are palpable. Cap refill within normal limits. HEAD: Normocephalic. EYES: No scleral icterus. No injection or drainage. NECK: Supple, trachea midline. No JVD or lymphadenopathy. CARDIOVASCULAR: Regular rate and rhythm without murmurs, gallops, or rubs. RESPIRATORY: Breath sounds equal bilaterally. No accessory muscle use. MUSCULOSKELETAL: No cyanosis, or edema. BACK: Nontender without obvious deformity. No CVA tenderness. Data Data Last Documented VS Vital Signs Date Time Temp Pulse Resp B/P (MAP) Pulse Ox O2 Delivery O2 Flow Rate FiO2 08/22/17 09:12 98.9 58 16 130/77 (94) 98 [facility] Medical Screen Exam Complete: Yes Emergency Medical Condition: No Differential Diagnosis Foot pain Narrative Course 51-year-old male presents emergency department for evaluation of bilateral foot pain. The patient does have large calluses on the plantar surface of his feet, otherwise foot exam is benign. Patient is homeless. I have encouraged him keeping his shoes dry and at least letting his feet air out. At this time there is no urgent or emergent needs medical intervention identified. A medical screening exam was performed: At the time of evaluation the presenting medical condition was determined not to be of an emergent nature. The patient was given the option of receiving additional care, but declined. Patient was given options for additional community resources from which to obtain care. The Patient Has Been advised to seek medical attention for their presenting complaint. The patient has been advised to return to the ER at any time if an emergent condition develops. Primary Impression: Encounter for medical screening examination Condition: Stable Lala Beltran Aug 22, 2017 09:32
[2017-08-22] MEDS ORDERED: CITA20TA4 PO (18:08)
[2017-08-22] MEDS ORDERED: METO25TA3 PO (18:11)
[2017-08-22] MEDS ORDERED: AMPHETAMINE SALTS PO (18:11)
[2017-08-22] MEDS ORDERED: TRAZ50TA12 PO (18:12)
[2017-08-22] MEDS ORDERED: CITA40TA4 PO (18:14)
[2017-08-22] MEDS ORDERED: QUET-86 PO (18:20)
[2017-08-22] MEDS ORDERED: LISI10TA3 PO (18:21)
[2017-08-22] MEDS ORDERED: PALI1TAB2 PO (18:22)
[2017-08-22] MEDS ORDERED: METF500T PO (18:23)
[2017-08-24] MEDS ORDERED: ADDE30TA PO (10:28)
== END 2017-08-22 10:13 | disposition left against medical advice (07) ==
LOC: NEPD 08:59
DX: M79.672 Pain in left foot (principal); M79.671 Pain in right foot; E11.9 Type 2 diabetes mellitus without complications; Z59.0 Homelessness; I10 Essential (primary) hypertension
CPT/HCPCS: 99281

== ENCOUNTER 2017-08-22 10:15 | Emergency (ER) | payer SELFPAY ==
[~2017-08-22] VITALS: Ht 180.3 cm; Wt 100.0 kg
[2017-08-22 10:23] VITALS: BP 156/87; PULSE 63; RESP 16; TEMP 97.7; O2SAT 99
--- NOTE | 2017-08-22 10:32 | PD ---
HPI Chief Complaint: Psychiatric Symptoms Time Seen by Provider: 10:30 Travel History International Travel<30 days: No Contact w/Intl Traveler<30days: No Traveled to known affect area: No History of Present Illness HPI 51-year-old male with history of diabetes, substance abuse, hypertension, who is currently homeless, who was discharged approximately 15 minutes ago after he came here for evaluation of bilateral foot pain, returns to the emergency department voluntarily for psychiatric evaluation. Patient now states he is having suicidal thoughts and needs a psychiatric evaluation. Patient states his plan is to jump in front of traffic. He states he is not taking any psychiatric medication. And he is not supposed to. He has no other symptoms to report at this time. PFSH Past Medical History Hx Anticoagulant Therapy: Yes (XARELTO) Arthritis: No Autoimmune Disease: Yes (hep c) Blood Disorders: No Bipolar Disorder: Yes Anxiety: Yes Depression: Yes Heart Rhythm Problems: No Cancer: No Cardiovascular Problems: Yes (HTN, DVT) High Cholesterol: No Chemotherapy: No Chest Pain: Yes Congestive Heart Failure: No COPD: No Cerebrovascular Accident: No Diabetes: Yes Diminished Hearing: No Endocrine: Yes Gastrointestinal Disorders: No Genitourinary: Yes (renal problems) Headaches: Yes Hepatitis: Yes (C antibodies) Hiatal Hernia: No Hypertension: Yes Immune Disorder: Yes Musculoskeletal: Yes Neurologic: Yes Psychiatric: Yes (BIPOLAR, DEPRESSION, SCHIZOAFFECTIVE DISORDER) Reproductive: No Respiratory: Yes (PE) Immunizations Current: Yes Radiation Therapy: No Renal Failure: Yes Schizophrenia: Yes Sickle Cell Disease: No Sleep Apnea: Yes Thyroid Disease: No Ulcer: No Past Surgical History Abdominal Surgery: No Arteriovenous Shunt: No Cardiac Surgery: No Ear Surgery: No Endocrine Surgery: No Eye Surgery: No Genitourinary Surgery: No Gynecologic Surgery: No Insulin Pump: No Joint Replacement: No Neurologic Surgery: No Oral Surgery: No Thoracic Surgery: No Other Surgery: Yes (liPoma removed from back of neck and left side of back) Social History Alcohol Use: Yes Tobacco Use: Yes (1/2 PPD) Substance Use: Yes Allergies-Medications (Allergen,Severity, Reaction): Coded Allergies: *MDRO Multi-Drug Resistant Organism (Verified Adverse Reaction, Unknown, ) MRSA (wounds) - 2001 & 2004 MRSA PCR (nares) negative - 06/11/15 & 06/13/15. Cleared per Infection Control Reported Meds & Prescriptions Reported Meds & Active Scripts Active Metformin (Metformin HCl) 500 Mg Tab 500 Mg PO BIDPC With meals Reported Lisinopril 10 Mg Tab 10 Mg PO BID Invega Sustenna Inj (Paliperidone Palmitate) 117 Mg/0.75 Ml Inj 117 Mg IM ONCE Review of Systems Except as stated in HPI: all other systems reviewed are Neg Physical Exam Narrative GENERAL: Well-nourished male patient, in no acute distress SKIN: Focused skin assessment warm/dry. HEAD: Atraumatic. Normocephalic. EYES: Pupils equal and round. No scleral icterus. No injection or drainage. ENT: No nasal bleeding or discharge. Mucous membranes pink and moist. NECK: Trachea midline. No JVD. CARDIOVASCULAR: Regular rate and rhythm. No murmur appreciated. RESPIRATORY: No accessory muscle use. Clear to auscultation. Breath sounds equal bilaterally. GASTROINTESTINAL: Abdomen soft, non-tender, nondistended. Hepatic and splenic margins not palpable. MUSCULOSKELETAL: No obvious deformities. No clubbing. No cyanosis. No edema. NEUROLOGICAL: Awake and alert. No obvious cranial nerve deficits. Motor grossly within normal limits. Normal speech. Data Data Last Documented VS Vital Signs Date Time Temp Pulse Resp B/P (MAP) Pulse Ox O2 Delivery O2 Flow Rate FiO2 08/22/17 10:23 97.7 63 16 156/87 (110) 99 Orders Orders Psych Screen (08/22/17 10:30) MDM Medical Decision Making Medical Screen Exam Complete: Yes Emergency Medical Condition: Yes Medical Record Reviewed: Yes Differential Diagnosis Malingering versus mood disorder versus personality disorder versus adjustment reaction disorder Narrative Course 51-year-old male presents emergency department voluntarily for psychiatric evaluation. Patient was just discharged after being seen for bilateral foot pain. He did not make mention of any suicidal thoughts or plan at that time. Lab work will not be completed for medical clearance at this time. Patient is medically cleared for psychiatric screening for further evaluation and disposition. Mental health screening discussed with the patient. Psychiatric screen ordered. Diagnosis Primary Impression: Malingering Condition: Stable Lala Beltran Aug 22, 2017 10:32
[2017-08-22 17:55] VITALS: BP 148/82; PULSE 70; RESP 18; O2SAT 96
[2017-08-22] MEDS ORDERED: CITA20TA4 PO (18:08)
[2017-08-22] MEDS ORDERED: AMPHETAMINE SALTS PO (18:11)
[2017-08-22] MEDS ORDERED: METO25TA3 PO (18:11)
[2017-08-22] MEDS ORDERED: TRAZ50TA12 PO (18:12)
[2017-08-22] MEDS ORDERED: CITA40TA4 PO (18:14)
[2017-08-22] MEDS ORDERED: QUET-86 PO (18:20)
[2017-08-22] MEDS ORDERED: LISI10TA3 PO (18:21)
[2017-08-22] MEDS ORDERED: PALI1TAB2 PO (18:22)
[2017-08-22] MEDS ORDERED: METF500T PO (18:23)
[2017-08-22 23:23] VITALS: BP 146/72; PULSE 72; RESP 20; TEMP 98.5; O2SAT 95
[2017-08-24] MEDS ORDERED: ADDE30TA PO (10:28)
== END 2017-08-23 11:27 | disposition left against medical advice (07) ==
LOC: NEPD 10:15 → NEPJ 08-23 11:27
DX: Z76.5 Malingerer [conscious simulation] (principal); M79.671 Pain in right foot; M79.672 Pain in left foot; E11.9 Type 2 diabetes mellitus without complications; B19.20 Unspecified viral hepatitis C without hepatic coma; I10 Essential (primary) hypertension; Z79.01 Long term (current) use of anticoagulants; Z72.0 Tobacco use; Z59.0 Homelessness
CPT/HCPCS: 99282

== ENCOUNTER 2017-11-11 10:00 | Inpatient (IN) ==
--- NOTE | 2017-11-11 11:25 | ED ---
HPI General Chief Complaint: Extremity Injury, Lower Stated Complaint: Right leg complaint Time Seen by Provider: 11/11/17 10:48 Source: patient Mode of arrival: ambulatory Limitations: no limitations History of Present Illness HPI Narrative: 51y male with a history of schizoaffective disorder, substance abuse, diabetes, hypertension, history of PE presents to the emergency department for evaluation of right lower extremity swelling and shortness of breath. Patient states about a week ago his symptoms started. Denies inciting event such as trauma to the lower extremity. Currently, says the pain is constant, 7/10, nonradiating. Denies numbness or tingling the extremity. Says he has a history of a pulmonary embolism 1-2 years ago but is not currently taking medication. Says he was previously on Coumadin but lost insurance and stopped taking medication. Patient has not taken any medication to relieve his leg pain today. Patient does not follow primary care physician. He denies chest pain. MD complaint: leg injury Type of Injury: unknown Place: home Severity scale (1-10): 7 Relieving factors: nothing Exacerbating factors: weight bearing, movement and palpation Other symptoms: none Related Data Home Medications Medication Instructions Recorded Confirmed No Known Home Medications 11/11/17 11/11/17 Allergies Allergy/AdvReac Type Severity Reaction Status Date / Time No Known Allergies Allergy Unverified 11/11/17 10:47 Review of Systems ROS: all other systems reviewed are negative COUNT INCLUDES [facility] Medical History Medical History Diabetes (Acute) HTN (hypertension) (Acute) Lipoma of neck (Acute) Social History Social History Smoking Status: Current every day smoker Tobacco Type: Cigarettes How Often Do You Have a Drink Containing Alcohol: 4 or more times a week Recent Travel in [facility] within the Last 8 Weeks: No Recent Out of Country Travel within the Last 8 Weeks: No Substance Abuse Detail Crack/Cocaine: Substance Use Status: Active Marijuana: Substance Use Status: Active Immunization History Tetanus Immunization: Unsure Hx Influenza Vaccine This Season: No Exam Narrative Exam Narrative: GENERAL: WD, WN in NAD SKIN: Focused skin assessment warm/dry. HEAD: Atraumatic. Normocephalic. EYES: Pupils equal and round. No scleral icterus. No injection or drainage. ENT: No nasal bleeding or discharge. Mucous membranes pink and moist. NECK: Trachea midline. No JVD. CARDIOVASCULAR: Regular rate and rhythm. No murmur appreciated. RESPIRATORY: No accessory muscle use. Clear to auscultation. Breath sounds equal bilaterally. MUSCULOSKELETAL: No obvious deformities. No clubbing. No cyanosis. No edema. RLE- area of erythema to mid upper calf and lower posterior thigh. TTP. No significant Edema. neurovascularly intact lower extremity. NEUROLOGICAL: Awake and alert. No obvious cranial nerve deficits. Motor grossly within normal limits. Normal speech. PSYCHIATRIC: Appropriate mood and affect; insight and judgment normal. Course Initial Documented Vital Signs Temperature 97.6 F 11/11/17 10:36 Pulse Rate 64 11/11/17 10:36 Respiratory Rate 16 11/11/17 10:36 Blood Pressure 144/79 H 11/11/17 10:36 Pulse Oximetry 98 11/11/17 10:36 Last Documented Vital Signs Temperature 97.6 F 11/11/17 10:36 Pulse Rate 52 L 11/11/17 15:24 Respiratory Rate 16 11/11/17 15:24 Blood Pressure 115/72 11/11/17 15:24 Pulse Oximetry 98 11/11/17 15:24 Medical Decision Making JESÚS Attestation JESÚS supervised visit: Yes Attestation: I was present with the advanced practitioner during the management of this patient. I discussed the case with the advanced practitioner and agree with the findings and plan as documented in their note except as noted below. 51yM with history of DVT/ PE presenting with right leg swelling and chest pain/ dyspnea. He states that he was previously on initially coumadin, then Xarelto, but stopped taking these meds about 5 years ago due to insurance issues. Well-appearing, no acute distress NCAT, PERRL RRR Lungs clear bilaterally, normal work of breathing, no respiratory distress Abdomen soft and non-tender Palpable cord in right lower thigh/ medial calf Alert and oriented A/P: 51yM presenting with leg swelling and chest pain/ dyspnea, found to have large non-occlusive DVT of RLE and acute pulmonary embolus. He will require admission for cardiac monitoring, anticoagulation, and re-evaluation at frequent intervals. Will discuss anticoagulation plan with [facility]. SCOTT Narrative Medical decision making narrative: 51-year-old male with a history of PE and DVT presents to the emergency department evaluation of right lower extremity swelling that started several days ago. US demonstrates right lower extremity DVT. CTA pulmonary angiogram demonstrates pulmonary embolism. Hydrocodone for pain. Vital signs stable. Labs stable. Cardiac enzymes negative. Pt will be admitted for DVT and PE. Please also see my attending's note for further information. Medical Screen Exam Complete: Yes Emergency Medical Condition: Yes Differential Diagnosis Differential Diagnosis: RLE DVT, cellulitis, injury Medical Records Medical records reviewed: Yes I reviewed the patient's medical records. Patient was previously taking Xarelto in 2016. EKG from 06/2015 similar to today's. Lab Data Result diagrams: 11/11/17 12:48 11/11/17 12:48 Lab Results 11/11/17 11/11/17 11/11/17 Range/Units 12:48 12:48 12:48 WBC 7.5 (4.0-11.0) th/mm3 RBC 4.60 (4.50-5.90) mil/mm3 Hgb 15.0 (13.0-17.0) gm/dL Hct 44.7 (39.0-51.0) % MCV 97.2 (80.0-100.0) fL MCH 32.7 (27.0-34.0) pg MCHC 33.6 (32.0-36.0) % RDW 12.9 (11.6-17.2) % Plt Count 239 (150-450) th/mm3 MPV 7.8 (7.0-11.0) fL Neut % (Auto) 67.1 (16.0-70.0) % Lymph % (Auto) 26.7 (9.0-44.0) % [place] % (Auto) 3.9 (0.0-8.0) % Eos % (Auto) 1.5 (0.0-4.0) % Baso % (Auto) 0.8 (0.0-2.0) % Neut # (Auto) 5.0 (1.8-7.7) th/mm3 Lymph # (Auto) 2.0 (1.0-4.8) th/mm3 [place] # (Auto) 0.3 (0.0-0.9) th/mm3 Eos # (Auto) 0.1 (0.0-0.4) th/mm3 Baso # (Auto) 0.1 (0.0-0.2) th/mm3 WBC Differential . Differential Comment Auto diff final PT 11.6 (9.8-11.6) sec INR 1.1 Ratio APTT 27.2 (24.3-30.1) sec Sodium 140 (136-145) meq/L Potassium 4.7 (3.5-5.1) meq/L Chloride 107 (98-107) meq/L Carbon Dioxide 26.9 (21.0-32.0) meq/L Anion Gap 6 (5-15) meq/L BUN 10 (7-18) mg/dL Creatinine 1.06 (0.60-1.30) mg/dL Estimated GFR Greater than 89 (>89) mL/min Random Glucose 113 H (74-106) mg/dL Calcium 8.9 (8.5-10.1) mg/dL Troponin I (0.02-0.05) ng/mL Free T4 (0.76-1.46) ng/dL 11/11/17 11/11/17 Range/Units 12:48 12:48 WBC (4.0-11.0) th/mm3 RBC (4.50-5.90) mil/mm3 Hgb (13.0-17.0) gm/dL Hct (39.0-51.0) % MCV (80.0-100.0) fL MCH (27.0-34.0) pg MCHC (32.0-36.0) % RDW (11.6-17.2) % Plt Count (150-450) th/mm3 MPV (7.0-11.0) fL Neut % (Auto) (16.0-70.0) % Lymph % (Auto) (9.0-44.0) % [place] % (Auto) (0.0-8.0) % Eos % (Auto) (0.0-4.0) % Baso % (Auto) (0.0-2.0) % Neut # (Auto) (1.8-7.7) th/mm3 Lymph # (Auto) (1.0-4.8) th/mm3 [place] # (Auto) (0.0-0.9) th/mm3 Eos # (Auto) (0.0-0.4) th/mm3 Baso # (Auto) (0.0-0.2) th/mm3 WBC Differential Differential Comment PT (9.8-11.6) sec INR Ratio APTT (24.3-30.1) sec Sodium (136-145) meq/L Potassium (3.5-5.1) meq/L Chloride (98-107) meq/L Carbon Dioxide (21.0-32.0) meq/L Anion Gap (5-15) meq/L BUN (7-18) mg/dL Creatinine (0.60-1.30) mg/dL Estimated GFR (>89) mL/min Random Glucose (74-106) mg/dL Calcium (8.5-10.1) mg/dL Troponin I Less than 0.02 L (0.02-0.05) ng/mL Free T4 0.91 (0.76-1.46) ng/dL Imaging Data Radiologist's impression: Chest CTA 11/11/17 10:54 CONCLUSION: 1. There is evidence of pulmonary emboli with multiple filling defects in the pulmonary arteries in branches involving the posterior right lower lung. 2. No acute pulmonary infiltrates. Venous Doppler Study 11/11/17 10:54 CONCLUSION: 1. There is nonocclusive DVT in the right popliteal vein and right peroneal vein. 2. There is nonocclusive thrombus in the superficial system involving the mid greater saphenous vein. ECG Data Attestation: I personally reviewed and interpreted this ECG as follows: Interpretation: Rate: 46 BPM Rhythm: Sinus [place]: Normal Intervals: Normal intervals, no blocks, QTc 420 ms Q waves: None T waves: Inverted in III, aVF, V3, V4 ST segments: No significant elevations or depressions Impression: Sinus bradycardia, T qwave inversions in anterior and inferior leads , no changes as compared to EKG from 06/30/2015. Discharge Plan Discharge Disposition Patient Disposition: 30 Still Patient Discharge Condition Condition: Stable Discharge Details Diagnosis: DVT (deep venous thrombosis), Acute pulmonary embolism Physicians Team ED Provider: Melissa Dacosta ED Midlevel Provider: Marline Amador Primary Care Provider: Primary Care Nancy Kerns Attending Provider: Yovani Ribeiro Status ED Status: Admitted Patient
--- NOTE | 2017-11-11 11:54 | US ---
EXAM DATE: 11/11/2017 11:34 AM EDT AGE/SEX: 51 years / Male INDICATIONS: Right leg pain. CLINICAL DATA: This is the patient's initial encounter. Patient reports that signs and symptoms have been present for 2 weeks and indicates a pain score of 7/10. MEDICAL/SURGICAL HISTORY: Hypertension. Diabetes. Lipoma on neck. None. COMPARISON: [facility] [place] VENOUS [place], 09/07/2016. . TECHNIQUE: Venous ultrasound of both lower extremities was performed from the inguinal ligament to t he proximal calf. Real-time, color Doppler and spectral tracing, compression and augmentation techni ques were used. FINDINGS: On today's examination there is nonocclusive thrombus noted in the right popliteal vein ex tending into the right peroneal vein within the calf. Otherwise, there is good flow in the deep venou s system from the knee up into the pelvis. There is also evidence of nonocclusive thrombus in the mid greater saphenous vein down to the mid calf. CONCLUSION: 1. There is nonocclusive DVT in the right popliteal vein and right peroneal vein. 2. There is nonocclusive thrombus in the superficial system involving the mid greater saphenous vein . Electronically signed by: Jonathan Rondon MD 11/11/2017 11:53 AM EDT
[2017-11-11 13:15] LABS: Baso # (Auto) 0.1 th/mm3 (0.0-0.2); Baso % (Auto) 0.8 % (0.0-2.0); Eos # (Auto) 0.1 th/mm3 (0.0-0.4); Eos % (Auto) 1.5 % (0.0-4.0); Hematocrit 44.7 % (39.0-51.0); Lymph % (Auto) 26.7 % (9.0-44.0); Mean Corpuscular HGB Conc 33.6 % (32.0-36.0); Mean Corpuscular Hemoglobin 32.7 pg (27.0-34.0); Mean Corpuscular Volume 97.2 fL (80.0-100.0); Mean Platelet Volume 7.8 fL (7.0-11.0); Mono # (Auto) 0.3 th/mm3 (0.0-0.9); Mono % (Auto) 3.9 % (0.0-8.0); Neut % (Auto) 67.1 % (16.0-70.0); Platelet Count 239 th/mm3 (150-450); Red Cell Distribution Width 12.9 % (11.6-17.2); White Blood Count 7.5 th/mm3 (4.0-11.0)
[2017-11-11 13:25] LABS: Activated Partial Thrombo Time 27.2 sec (24.3-30.1); INR 1.1 Ratio; Prothrombin Time 11.6 sec (9.8-11.6)
[2017-11-11 13:39] LABS: Anion Gap 6 meq/L (5-15); Blood Urea Nitrogen 10 mg/dL (7-18); Calcium 8.9 mg/dL (8.5-10.1); Carbon Dioxide 26.9 meq/L (21.0-32.0); Chloride 107 meq/L (98-107); Glomerular Filtration Rate Greater Than 89 mL/min (>89); Glucose,Random 113 mg/dL (74-106); Sodium 140 meq/L (136-145)
[2017-11-11 13:40] LABS: Potassium 4.7 meq/L (3.5-5.1)
--- NOTE | 2017-11-11 14:20 | CT ---
EXAM DATE: 11/11/2017 2:12 PM EDT AGE/SEX: 51 years / Male INDICATIONS: Chest pain right lower extremity pain CLINICAL DATA: This is the patient's initial encounter. Patient reports that signs and symptoms have been present for 1 week and indicates a pain score of 7/10. MEDICAL/SURGICAL HISTORY: Diabetes. Hypertension. None. RADIATION DOSE: 10.75 CTDI (mGy) COMPARISON: [facility], CT PULMONARY ANGIOGRAM, 06/22/2017. . TECHNIQUE: Volumetric scanning was performed using a multi-row detector CT scanner during bolus infu danielito of 95 ml Omnipaque 350 (iohexol) nonionic water-soluble contrast as a single exam dose. The ap a was post processed with a variety of visualization algorithms including full volume maximum intensi ty projection and sliding thin slab reformation. Using automated exposure control and adjustment of t he mA and/or kV according to patient size, radiation dose was kept as low as reasonably achievable to obtain optimal diagnostic quality images. DICOM format image data is available electronically for r eview and comparison. FINDINGS: Pulmonary Arteries: Several small filling defects are noted in branches involving the posterior righ t lower lung. This is consistent with pulmonary emboli. This is a new finding compared to the prior s tudy. No definite filling defects are seen in the left pulmonary arteries. Lung: No infiltrates seen. Effusion: None. Mediastinum: No evidence of mediastinal or hilar adenopathy. Other: The axilla is unremarkable. CONCLUSION: 1. There is evidence of pulmonary emboli with multiple filling defects in the pulmonary arteries in branches involving the posterior right lower lung. 2. No acute pulmonary infiltrates. Electronically signed by: Jonathan Rondon MD 11/11/2017 2:18 PM EDT
[2017-11-11] MEDS: Sod Chloride 0.9% Inj 1,000 ML IV.CONT SCH (15:58)
[2017-11-11] MEDS ORDERED: Enoxaparin Inj 100 MG/ML Syringe SQ ONE (16:00)
--- NOTE | 2017-11-11 17:02 | ECG ---
Date Performed: 11/11/2017 Time Performed: 13:00:54 PTAGE: 51 years EKG: SINUS BRADYCARDIA POSSIBLE LATERAL MYOCARDIAL INFARCTION MODERATE T-WAVE ABNORMALITY, CONSI LINDA ANTERIOR ISCHEMIA When compared to previous tracing, anterior T wave changes are New. ABNORMAL EC G PREVIOUS TRACING : 06/30/2015 08.48 DOCTOR: Jay Hurtado Interpretating Date/Time 11/11/2017 17:00:51
--- NOTE | 2017-11-11 17:26 | P.HPIM ---
History of Present Illness Primary Care Physician: No Primary Care Physician History of Present Illness: Mr. Hurtado is a 51-year-old male. He has a past history of a large spontaneous pulmonary embolism without unknown etiology. She took Coumadin at that time and eventually Coumadin was discontinued. Today he comes into the emergency department with complaints of right lower extremity pain. Ultrasound imaging shows superficial thrombophlebitis which is likely what was causing his symptoms. However, additionally he has a right lower extremity DVT. He is also found to have bilateral pulmonary emboli. Again, at this time he does not have a good reason for having DVT or PE. No recent surgeries/trauma. No stasis. No family history of hypercoagulability. He complains of no chest pain or shortness of breath. No other complaints at this time. Inpatient Certification: I certify that the inpatient services were ordered in accordance with Medicare regulations governing the order. This includes certification that hospital inpatient services are reasonable and necessary and in the case of services not specified as inpatient-only under 42 CFR 419.22(n), that they are appropriately provided as inpatient services in accordance to with the 2-midnight benchmark under 43 CFR 412.3(e) Estimated Total Length of Stay (Days): 3 Plans for Post Hospital Care: Home Review of Systems Constitutional: No fevers, no chills no night sweats, no fatigue, no weakness Eyes: No eye pain, no blurry vision, no loss of vision ENT: No sore throat, no ear pain, no rhinorrhea Cardiovascular: No chest pain, no tachycardia, no palpitations, no shortness of breath, no syncope Respiratory: No wheezing, no cough, no shortness of breath Gastrointestinal: No abdominal pain, no black tarry stools, no bright red blood per rectum, no vomiting, no diarrhea Musculoskeletal: No joint pain, no muscle cramps, no stiffness Integumentary: No rash, no ulcers, no drainage Neurologic: No sensory loss, no loss of motor function, no dizziness Psychiatric: No behavioral changes, no hallucinations, no suicidal ideations PMFSH - History History Provided By: Patient - Medical History Medical History: Medical History (Last Updated 11/11/17 @ 10:48 by Laura Sandy) Diabetes HTN (hypertension) Lipoma of neck - Family History Family History: Family History (Last Updated 11/11/17 @ 18:11 by Yovani Ribeiro MD) Sister Lupus Mother COPD (chronic obstructive pulmonary disease) Congestive heart failure Father Chronic kidney disease Other Osteoarthritis - Tobacco History Tobacco Use In Past 30 Days: Yes Smoking Status: Current every day smoker Tobacco Type: Cigarettes - Alcohol History How Often Do You Have a Drink Containing Alcohol: 4 or more times a week - Substance Use Type Crack/Cocaine Status: Active Marijuana Status: Active - Travel History Recent Travel in the USA Within the Last 8 Weeks: No Recent Travel Out of the Country Within the Last 8 Weeks: No - Immunization History Tetanus Immunization: Unsure Hx Influenza Vaccine This Season: No Medications and Allergies Active Medications: Active Medications Hydrocodone Bitart/Acetaminophen ([place] 10/325) 1 tab PO Q4H PRN PRN Reason: Pain 7 to 10 Hydrocodone Bitart/Acetaminophen ([place] 5/325) 1 tab PO Q4H PRN PRN Reason: Pain 3 to 6 Al Hydroxide/Mg Hydroxide (Milk Of Magnesia Liq) 30 ml PO Q12H PRN PRN Reason: Mild Constipation Enoxaparin Sodium (Lovenox Inj) 100 mg SQ Q12HR [facility] Sodium Chloride (Ns Inj) 1,000 mls @ 75 mls/hr IV.CONT .[id number] [facility] Last Admin: 11/11/17 15:58 Dose: 75 mls/hr Ondansetron HCl (Zofran Inj) 4 mg IV.PUSH Q6H PRN PRN Reason: NAUSEA OR VOMITING Warfarin Sodium (Coumadin) 5 mg PO DAILY@1600 [facility] Last Admin: 11/11/17 15:57 Dose: 5 mg Allergies Allergy/AdvReac Type Severity Reaction Status Date / Time No Known Allergies Allergy Unverified 11/11/17 10:47 Home Medications Medication Instructions Recorded Confirmed Type No Known Home Medications 11/11/17 11/11/17 History Exam Vital signs: Vital Signs 11/11/17 10:36 11/11/17 15:24 Temperature 97.6 F Pulse Rate 64 52 L Respiratory Rate 16 16 Blood Pressure 144/79 H 115/72 Pulse Oximetry 98 98 Intake & Output 11/10/17 11/11/17 11/11/17 18:59 06:59 18:59 Weight 101.151 kg Narrative: GENERAL: NAD, A&Ox3 HEAD: Normocephalic. NECK: Supple, trachea midline. No lymphadenopathy. EYES: No scleral icterus. No injection or drainage. CARDIOVASCULAR: Regular rate and rhythm without murmurs, gallops, or rubs. RESPIRATORY: Breath sounds equal bilaterally. No accessory muscle use. GASTROINTESTINAL: Abdomen soft, non-tender, nondistended. MUSCULOSKELETAL: No cyanosis, or edema. SKIN: Warm and dry. NEURO: No focal neurological deficits. Results - Labs CBC & Chem 7: 11/11/17 12:48 11/11/17 12:48 Labs: Short CBC 11/11/17 Range/Units 12:48 WBC 7.5 (4.0-11.0) th/mm3 Hgb 15.0 (13.0-17.0) gm/dL Hct 44.7 (39.0-51.0) % Plt Count 239 (150-450) th/mm3 BMP 11/11/17 12:48 Sodium 140 Potassium 4.7 Chloride 107 Carbon Dioxide 26.9 BUN 10 Creatinine 1.06 Calcium 8.9 Cardiac Enzymes 11/11/17 Range/Units 12:48 Troponin I Less than 0.02 L (0.02-0.05) ng/mL - Imaging Impressions Chest CTA 11/11/17 10:54 CONCLUSION: 1. There is evidence of pulmonary emboli with multiple filling defects in the pulmonary arteries in branches involving the posterior right lower lung. 2. No acute pulmonary infiltrates. Venous Doppler Study 11/11/17 10:54 CONCLUSION: 1. There is nonocclusive DVT in the right popliteal vein and right peroneal vein. 2. There is nonocclusive thrombus in the superficial system involving the mid greater saphenous vein. Caprini VTE Risk Assessment Caprini VTE Risk Assessment: Moderate/High Risk (score >= 2) Caprini Risk Assessment Model: Point Value = 1 Point Value = 2 Point Value = 3 Point Value = 5 Age 41-60 Minor surgery BMI > 25 kg/m2 Swollen legs Varicose veins or History of unexplained or recurrent spontaneous Oral contraceptives or hormone replacement Sepsis (< 1 month) Serious lung disease, including pneumonia (< 1 month) Abnormal pulmonary function Acute myocardial infarction Congestive heart failure (< 1 month) History of inflammatory bowel disease Medical patient at bed rest Age 61-74 Arthroscopic surgery Major open surgery (> 45 min) Laparoscopic surgery (> 45 min) Malignancy Confined to bed (> 72 hours) Immobilizing plaster cast Central venous access Age >= 75 History of VTE Family history of VTE Factor V Leiden Prothrombin [id number] Lupus anticoagulant Anticardiolipin antibodies Elevated serum homocysteine Heparin-induced thrombocytopenia Other congenital or acquired thrombophilia Stroke (< 1 month) Elective arthroplasty Hip, pelvis, or leg fracture Acute spinal cord injury (< 1 month) Prophylaxis Regimen: Total Risk Factor Score Risk Level Prophylaxis Regimen 0-1 Low Early ambulation 2 Moderate Order ONE of the following: *Sequential Compression Device (SCD) *Heparin 5000 units SQ BID 3-4 Higher Order ONE of the following medications: *Heparin 5000 units SQ TID *Enoxaparin/Lovenox 40 mg SQ daily (WT < 150 kg, CrCl > 30 mL/min) *Enoxaparin/Lovenox 30 mg SQ daily (WT < 150 kg, CrCl > 10-29 mL/min) *Enoxaparin/Lovenox 30 mg SQ BID (WT < 150 kg, CrCl > 30 mL/min) AND/OR *Sequential Compression Device (SCD) 5 or more Highest Order ONE of the following medications: *Heparin 5000 units SQ TID (Preferred with Epidurals) *Enoxaparin/Lovenox 40 mg SQ daily (WT < 150 kg, CrCl > 30 mL/min) *Enoxaparin/Lovenox 30 mg SQ daily (WT < 150 kg, CrCl > 10-29 mL/min) *Enoxaparin/Lovenox 30 mg SQ BID (WT < 150 kg, CrCl > 30 mL/min) AND *Sequential Compression Device (SCD) Assessment and Plan - Plan 51-year-old male admitted secondary to right lower extremity DVT and acute bilateral pulmonary emboli Acute bilateral pulmonary emboli Right lower extremity DVT Therapeutic Lovenox Coumadin started Plan to discuss optimal financial option with case management, so treatment could change to something like Eliquis if indicated Hypercoagulability workup Hematology consult Diabetes mellitus type 2 Follow blood sugars Insulin sliding scale Diabetic diet Hypertension Continue baseline treatment Follow blood pressures Adjust treatments as needed DVT prophylaxis Lovenox
[2017-11-11] MEDS ORDERED: Dextrose 50% in Water 50 ML Vial IV.PUSH PRN (18:12)
--- NOTE | 2017-11-11 19:39 | P.CON ---
History of Present Illness Service: Hematology Consult date: 11/11/17 Requesting Physician: Yovani Ribeiro Reason for Consult: Recurrent venous thromboembolism. Primary Care Provider: No Primary Care Physician Chief Complaint: Swelling of the right leg. Difficulty breathing and chest pain. History of Present Illness: Mr. Hurtado is a very pleasant 51-year-old man, he is originally from [facility], he has lived in [place] continuously since the late . He is , he has 4 children they are aged 26-5 years he tells me he is loosely in touch with them. The patient tells me he is a recovering alcoholic and drug addict, he is prone to binges and tells me he has recently been on a binge of cocaine and alcohol. He resides in a facility for those were homeless and does who have drug problems. He tells me despite his alcohol and drug problems he tries to work and has worked in landscaping as well as construction. Mr. Hurtado reports having had continuous pain and swelling of his right leg for the past 10 days, he noticed his right leg veins "popping out". He reported the symptoms to his ex- who advised him to come into the emergency department for further evaluation and specifically to rule out a blood clot. Additional symptoms earlier today included difficulty breathing and a pain in his central/left chest which he likens to the sensation of having a "burp stuck in the chest ". Upon presentation to the emergency department he underwent ultrasound Doppler studies of the lower extremity and was found to have a nonocclusive DVT involving the right popliteal vein and right peroneal vein. Additionally a nonocclusive thrombus was identified in the superficial system involving the mid greater saphenous vein. A CT angiogram of the thorax was also performed on 11/11/2017 and this revealed evidence of pulmonary emboli with multiple filling defects involving the pulmonary arteries of the branches of the posterior right lower lung as well as in the right mid lung. No masses or lymphadenopathy was identified. The patient has been initiated on therapeutic anticoagulation with Lovenox at a dose of 1 mg/kg every 12 hours. The patient tells me his symptoms of difficulty breathing are already improved. The patient's history of venous thromboembolism dates back to 2008, he was diagnosed with pulmonary emboli at that time which were diagnosed and treated at [facility], he reports being treated with warfarin for 6 or 7 months and then lost his insurance and was lost to follow-up. He remained free of venous thromboembolism up until May 2015 when he developed right leg swelling , he was at that time diagnosed with a right posterior tibial vein deep venous thrombosis. This is per the electronic medical records, the patient himself denies having any recollection of the diagnosis of lower extremity DVT and tells me he was not on anticoagulation after this diagnosis. The patient tells me he was at that time using drugs and alcohol heavily and that he was prone to forgetting things and is fairly certain that if he was told of the diagnosis he probably does not recall and probably would not have followed through with any therapeutic intervention. Review of Systems Constitutional: Reports night sweats (He tells me he gets night sweats when he is using drugs.), Denies anorexia, Denies body ache(s), Denies chills, Denies weakness Eyes: Denies blind spots, Denies blurry vision, Denies change in vision, Denies double vision Ears, Nose, Mouth, and Throat: Denies abnormal hearing, Denies change in voice, Denies dental pain, Denies sinus pressure, Denies sore throat, Denies throat swelling Cardiovascular: Reports chest pain, Reports shortness of breath, Denies shortness of breath causing sudden awakening Respiratory: Denies change in phlegm color, Denies chest congestion, Denies cough, Denies coughing up blood Gastrointestinal: Reports constipation, Denies abdominal pain, Denies heartburn , Denies vomiting Genitourinary: Denies blood in urine, Denies difficulty urinating Musculoskeletal: Denies abnormal walking, Denies back pain, Denies joint pain, Denies joint swelling, Denies muscle cramps Skin/Breast: Denies rash, Denies skin ulcer Neurologic: Denies abnormal hearing, Denies abnormal speech, Denies confusion, Denies dizziness, Denies fainting, Denies frequent falls, Denies headache(s) Psychiatric: Reports change in appetite, Denies anxiety, Denies behavioral changes Endocrine: Denies cold intolerance Hematologic/Lymphatic: Denies easy bleeding Allergic/Immunologic: Denies GI upset with certain foods PMFSH - History History Provided By: Patient - Medical History Medical History: Medical History (Last Updated 11/11/17 @ 19:31 by Darnell Pate MD) Alcohol abuse Alcohol withdrawal seizure Bipolar disorder Diabetes Drug abuse HTN (hypertension) History of deep venous thrombosis (DVT) of distal vein of right lower extremity History of pulmonary embolus (PE) Lipoma of neck PTSD (post-traumatic stress disorder) Schizoaffective disorder - Family History Family History: Family History (Last Updated 11/11/17 @ 19:31 by Darnell Pate MD) Sister Lupus Mother Congestive heart failure COPD (chronic obstructive pulmonary disease) Father Chronic kidney disease Prostate cancer Other Osteoarthritis - Tobacco History Second Hand Smoke Exposure: No Tobacco Use In Past 30 Days: Yes Smoking Status: Current every day smoker Tobacco Type: Cigarettes - Alcohol History How Often Do You Have a Drink Containing Alcohol: 4 or more times a week - Substance Use History Substance History: Active Abuse - Substance Use Type Crack/Cocaine Status: Active Route Used: Inhalation Reason for Use: Feels Good Marijuana Status: Active Route Used: Inhalation - Travel History Recent Travel in the [place] Within the Last 8 Weeks: No Recent Travel Out of the Country Within the Last 8 Weeks: No - Immunization History Tetanus Immunization: Unsure Hx Influenza Vaccine This Season: No Medications and Allergies Active Medications: Active Medications Hydrocodone Bitart/Acetaminophen ([place] 10/325) 1 tab PO Q4H PRN PRN Reason: Pain 7 to 10 Hydrocodone Bitart/Acetaminophen ([place] 5/325) 1 tab PO Q4H PRN PRN Reason: Pain 3 to 6 Al Hydroxide/Mg Hydroxide (Milk Of Magnjosafat Liq) 30 ml PO Q12H PRN PRN Reason: Mild Constipation Dextrose (D50w Vial) 50 ml IV.PUSH UNSCH PRN PRN Reason: PER HYPOGLYCEMIA PROTOCOL Enoxaparin Sodium (Lovenox Inj) 100 mg SQ Q12HR [facility] Glucagon (Glucagon Inj) 1 mg OTHER PRN PRN PRN Reason: for Hypoglycemia Protocol Sodium Chloride (Ns Inj) 1,000 mls @ 75 mls/hr IV.CONT .[id number] [facility] Last Admin: 11/11/17 15:58 Dose: 75 mls/hr Insulin Aspart (Novolog Insulin Correctional Sugar Inj) 0 unit SQ ACHS [facility]; Protocol Ondansetron HCl (Zofran Inj) 4 mg IV.PUSH Q6H PRN PRN Reason: NAUSEA OR VOMITING Allergies Allergy/AdvReac Type Severity Reaction Status Date / Time No Known Allergies Allergy Unverified 11/11/17 10:47 Home Medications Medication Instructions Recorded Confirmed Type No Known Home Medications 11/11/17 11/11/17 History Physical Exam Vital signs: Vital Signs 11/11/17 10:36 11/11/17 15:24 Temperature 97.6 F Pulse Rate 64 52 L Respiratory Rate 16 16 Blood Pressure 144/79 H 115/72 Pulse Oximetry 98 98 Intake & Output 11/11/17 11/11/17 11/12/17 06:59 18:59 06:59 Weight 101.151 kg - Constitutional no acute distress - Routine HEENT Exam Head: Present: normocephalic, atraumatic. Absent: cushingoid faces, abrasion Eye: Present: EOMI, PERRL. Absent: normal accommodation, conjunctival icterus ENT: Absent: mucous membranes moist - Routine Neck Exam Absent: supple, full ROM, JVD, carotid bruit, normal carotid upstroke, lymphadenopathy - Routine Respiratory Exam Present: CTA bilaterally. Absent: accessory muscle use, prolonged expiratory phase, rales, respiratory distress, rhonchi, stridor, wheezes, crackles - Routine Abdominal Exam Present: soft, normoactive bowel sounds. Absent: tenderness, distended, rebound , guarding, firm, rigid, organomegaly, mass, hernia, surgical scars - Routine Extremities Exam Present: edema, full ROM, normal capillary refill (Right lower extremity edema.) . Absent: cyanosis, clubbing - Routine Skin Exam Present: intact. Absent: cyanosis, erythema, dry, pallor - Routine Neurological Exam Present: alert, oriented X3, CN II-XII intact. Absent: sensory deficit, motor deficit - Detailed Neurological Exam: Coma Scale Eye Opening: Spontaneous - Routine Psychiatric Exam Present: normal affect, cooperative, good insight, good judgment. Absent: depressed, anxious, agitated, manic, unable to assess Assessment and Plan - Plan Mr. Hurtado is a very pleasant 51-year-old man with a reported psychiatric history of schizoaffective disorder, bipolar disorder and posttraumatic stress disorder, he has a reported history of alcohol and illicit drug abuse. He tells me he is sober today but has as of late been on a binge. Additional medical comorbid conditions include type 2 diabetes, borderline hypertension as well as previous history of pulmonary emboli diagnosed in 2008 as well as right lower extremity deep venous thrombosis diagnosed in the spring 2015. Pulmonary embolus in 2008 was treated with therapeutic anticoagulation with [facility]far[facility] 6 -[facility] The deep venous thrombosis in 2016 as best the patient can recall was not treated. He presents the hospital with a 10 day history of right leg swelling and a less than 2 day history of shortness of breath with chest discomfort. He was found on ultrasound Doppler studies to have nonocclusive thrombosis involving the right lower extremity and scattered pulmonary emboli involving the right lung on CT angiogram of the thorax; both studies performed on 2017. Patient has been initiated on therapeutic anticoagulation with appropriate dosing of Lovenox at 1 mg/kg every 12 hours. The hematology service is been asked to see him for further workup and management and to also assist in a prothrombotic workup. Recommendations: 1. Recurrent venous thrombus embolism: I will initiate a prothrombotic workup. The final results may take up to 2 weeks. In the meantime I would advise continuation of therapeutic anticoagulation with therapeutic dose Lovenox. I would advise treating him with Lovenox alone at least for 48 hours and then introduce warfarin. Outpatient follow-up will be challenging, he tells me he has some insurance but oftentimes is unable to make copayments for lab testing. Additionally he tells me very frankly that when he is on an alcohol or drug binge he is nonadherent to medications. 2. An echocardiogram will be ordered to rule out right heart strain. Though clinically does not appear to have right heart strain I am concerned about the effects recurrent pulmonary emboli may have had on his right heart. Continue ongoing care. Thank you for involving me in the care of this very interesting patient.
[2017-11-11] MEDS: Insulin NovoLOG Aspart Correctional Sugar Inj SQ SCH (20:47)
[2017-11-12 05:45] LABS: Baso # (Auto) 0.1 th/mm3 (0.0-0.2); Eos # (Auto) 0.2 th/mm3 (0.0-0.4); Eos % (Auto) 2.4 % (0.0-4.0); Hematocrit 39.6 % (39.0-51.0); Hemoglobin 13.9 gm/dL (13.0-17.0); Lymph # (Auto) 2.6 th/mm3 (1.0-4.8); Lymph % (Auto) 35.5 % (9.0-44.0); Mean Corpuscular Hemoglobin 33.2 pg (27.0-34.0); Mean Corpuscular Volume 94.9 fL (80.0-100.0); Mean Platelet Volume 8.4 fL (7.0-11.0); Mono # (Auto) 0.4 th/mm3 (0.0-0.9); Mono % (Auto) 4.8 % (0.0-8.0); Neut # (Auto) 4.2 th/mm3 (1.8-7.7); Neut % (Auto) 56.3 % (16.0-70.0); Platelet Count 237 th/mm3 (150-450); Red Blood Count 4.17 mil/mm3 (4.50-5.90); Red Cell Distribution Width 12.8 % (11.6-17.2); White Blood Count 7.5 th/mm3 (4.0-11.0)
[2017-11-12 05:50] LABS: INR 1.2 Ratio; Prothrombin Time 11.9 sec (9.8-11.6)
[2017-11-12] MEDS: Sod Chloride 0.9% Inj 1,000 ML IV.CONT SCH ×2 (05:55→20:16)
[2017-11-12 06:14] LABS: Albumin 3.1 g/dL (3.4-5.0); Anion Gap 9 meq/L (5-15); Aspartate Aminotransferase 13 U/L (15-37); Blood Urea Nitrogen 10 mg/dL (7-18); Calcium 8.7 mg/dL (8.5-10.1); Carbon Dioxide 28.1 meq/L (21.0-32.0); Chloride 105 meq/L (98-107); Glomerular Filtration Rate 87 mL/min (>89); Glucose,Random 119 mg/dL (74-106); Potassium 3.7 meq/L (3.5-5.1); Sodium 142 meq/L (136-145)
[2017-11-12 06:18] LABS: Alanine Aminotransferase 20 U/L (12-78); Alkaline Phosphatase 56 U/L (45-117); Total Protein 6.4 g/dL (6.4-8.2)
[2017-11-12] MEDS: Insulin NovoLOG Aspart Correctional Sugar Inj SQ SCH ×4 (08:51→20:17)
[2017-11-12] MEDS: Enoxaparin Inj 100 MG/ML Syringe SQ SCH ×2 (08:52→20:10)
[2017-11-12] MEDS ORDERED: Enoxaparin Inj 100 MG/ML Syringe SQ SCH (09:00)
--- NOTE | 2017-11-12 13:56 | ECHRPT ---
Indication: SHORTNESS OF BREATH CONCLUSIONS Mildly dilated left ventricle. The left ventricular systolic function is normal with an estimated ejection fraction in the range of 55-60%. There is trace tricuspid valve regurgitation. Trivial pulmonary valve regurgitation. Grossly normal RV, appears to have normal function. BP: / HR: Rhythm: Sinus MEASUREMENTS (Male / Female) Normal Values Technical Quality:Fair 2D ECHO LV Diastolic Diameter PLAX 6.1 cm 4.2 - 5.9 / 3.9 - 5.3 cm LV Systolic Diameter PLAX 4.7 cm IVS Diastolic Thickness 1.0 cm 0.6 - 1.0 / 0.6 - 0.9 cm LVPW Diastolic Thickness 1.0 cm 0.6 - 1.0 / 0.6 - 0.9 cm LV Relative Wall Thickness 0.3 RV Internal Dim ED PLAX 3.0 cm LVOT Diameter 2.3 cm Aortic Root Diameter 3.7 cm LA Systolic Diameter LX 3.3 cm 3.0 - 4.0 / 2.7 - 3.8 cm M-MODE AV Cusp Separation MM 2.2 cm DOPPLER AV Peak Velocity 130.0 cm/s AV Peak Gradient 6.8 mmHg AV Mean Gradient 4.0 mmHg AV Velocity Time Integral 28.7 cm LVOT Peak Velocity 85.0 cm/s LVOT Peak Gradient 2.9 mmHg LVOT Velocity Time Integral 16.4 cm AV Area Cont Eq vti 2.4 cm AV Area Cont Eq pk 2.7 cm Mitral E Point Velocity 76.0 cm/s Mitral A Point Velocity 79.5 cm/s Mitral E to A Ratio 1.0 LV E' Lateral Velocity 8.5 cm/s Mitral E to LV E' Lateral Ratio 9.0 LV E' Septal Velocity 8.8 cm/s Mitral E to LV E' Septal Ratio 8.7 TR Peak Velocity 229.0 cm/s TR Peak Gradient 21.0 mmHg Right Atrial Pressure 10.0 mmHg Pulmonary Artery Systolic Pressu 31.0 mmHg Right Ventricular Systolic Press 31.0 mmHg PV Peak Velocity 57.9 cm/s PV Peak Gradient 1.3 mmHg FINDINGS LEFT VENTRICLE Mildly dilated left ventricle. Wall thickness is measured at the upper limits of normal. The left ventricular systolic function is normal with an estimated ejection fraction in the range of 55-60%. RIGHT VENTRICLE Grossly normal, appears to have normal function. LEFT ATRIUM The left atrial size is normal. RIGHT ATRIUM The right atrial size is normal. ATRIAL SEPTUM No atrial level shunt is demonstrated by color flow Doppler interrogation. AORTA The aortic root and proximal ascending aorta are normal in size on limited imaging. MITRAL VALVE Structurally normal mitral valve. No mitral valve stenosis or regurgitation. AORTIC VALVE Trileaflet aortic valve. No aortic valve stenosis or regurgitation. TRICUSPID VALVE Structurally normal tricuspid valve. There is trace tricuspid valve regurgitation. The estimated pulmonary arterial pressure is 31 mmHg. PULMONARY VALVE Trivial pulmonary valve regurgitation. VESSELS The inferior vena cava is normal in size. PERICARDIUM No pericardial effusion. Joaquin Morales DO (Electronically Signed) Final Date:12 November 2017 13:55
--- NOTE | 2017-11-12 14:18 | P.PNIM ---
Subjective Interval history: Slow improvements are seen in this patient's clinical status. Echocardiogram is obtained and shows no cardiomyopathy. Patient has no new complaints. No chest pain or shortness of breath. Physical Exam Vital signs: Vital Signs 11/11/17 15:24 11/11/17 20:00 11/12/17 00:00 Temperature 97.8 F 97.6 F Pulse Rate 52 L 88 70 Respiratory Rate 16 17 17 Blood Pressure 115/72 126/68 119/69 Pulse Oximetry 98 98 98 11/12/17 04:00 11/12/17 12:00 Temperature 97.2 F L 97.8 F Pulse Rate 67 52 L Respiratory Rate 17 17 Blood Pressure 121/67 125/71 Pulse Oximetry 98 99 Intake & Output 11/11/17 11/12/17 11/12/17 18:59 06:59 18:59 Intake Total 1240 / 1240 Balance 1240 / 1240 Weight 101.151 kg 99 kg Intake: IV 1000 / 1000 NS Inj 1,000 ML @ 75 mls/hr IV. 1000 / 1000 CONT .[id number] ISABELL Rx#:[id number] Oral 240 / 240 Other: # Voids 3 Weight On Admission 99 kg Narrative: GENERAL: NAD, A&Ox3 HEAD: Normocephalic. NECK: Supple, trachea midline. No lymphadenopathy. EYES: No scleral icterus. No injection or drainage. CARDIOVASCULAR: Regular rate and rhythm without murmurs, gallops, or rubs. RESPIRATORY: Breath sounds equal bilaterally. No accessory muscle use. GASTROINTESTINAL: Abdomen soft, non-tender, nondistended. MUSCULOSKELETAL: No cyanosis, or edema. Right lower extremity edema, mild. SKIN: Warm and dry. NEURO: No focal neurological deficits. Results - Labs CBC & Chem 7: 11/12/17 04:39 11/12/17 04:39 Laboratory Results - last 24 hr 11/11/17 11/11/17 11/11/17 12:48 19:39 20:10 WBC RBC Hgb Hct MCV MCH MCHC RDW Plt Count MPV Neut % (Auto) Lymph % (Auto) Green % (Auto) Eos % (Auto) Baso % (Auto) Neut # (Auto) Lymph # (Auto) Green # (Auto) Eos # (Auto) Baso # (Auto) WBC Differential Differential Comment PT INR Sodium Potassium Chloride Carbon Dioxide Anion Gap BUN Creatinine Estimated GFR POC Glucose 142 H Random Glucose Calcium Total Bilirubin AST ALT Alkaline Phosphatase Troponin I Less than 0.02 L Total Protein Albumin Homocysteine Cardiovas Free T4 0.91 11/11/17 11/12/17 11/12/17 20:10 04:34 04:39 WBC 7.5 RBC 4.17 L Hgb 13.9 Hct 39.6 MCV 94.9 MCH 33.2 MCHC 35.0 RDW 12.8 Plt Count 237 MPV 8.4 Neut % (Auto) 56.3 Lymph % (Auto) 35.5 Green % (Auto) 4.8 Eos % (Auto) 2.4 Baso % (Auto) 1.0 Neut # (Auto) 4.2 Lymph # (Auto) 2.6 Green # (Auto) 0.4 Eos # (Auto) 0.2 Baso # (Auto) 0.1 WBC Differential . Differential Comment Auto diff final PT 11.9 H INR 1.2 Sodium Potassium Chloride Carbon Dioxide Anion Gap BUN Creatinine Estimated GFR POC Glucose Random Glucose Calcium Total Bilirubin AST ALT Alkaline Phosphatase Troponin I Total Protein Albumin Homocysteine Cardiovas Cancelled Free T4 11/12/17 11/12/17 11/12/17 04:39 08:44 12:09 WBC RBC Hgb Hct MCV MCH MCHC RDW Plt Count MPV Neut % (Auto) Lymph % (Auto) Green % (Auto) Eos % (Auto) Baso % (Auto) Neut # (Auto) Lymph # (Auto) Green # (Auto) Eos # (Auto) Baso # (Auto) WBC Differential Differential Comment PT INR Sodium 142 Potassium 3.7 D Chloride 105 Carbon Dioxide 28.1 Anion Gap 9 BUN 10 Creatinine 1.09 Estimated GFR 87 L POC Glucose 169 H 128 H Random Glucose 119 H Calcium 8.7 Total Bilirubin 0.4 AST 13 L ALT 20 Alkaline Phosphatase 56 Troponin I Total Protein 6.4 Albumin 3.1 L Homocysteine Cardiovas Free T4 - Imaging Impressions Chest CTA 11/11/17 10:54 CONCLUSION: 1. There is evidence of pulmonary emboli with multiple filling defects in the pulmonary arteries in branches involving the posterior right lower lung. 2. No acute pulmonary infiltrates. Assessment and Plan - Plan 51-year-old male admitted secondary to right lower extremity DVT and acute bilateral pulmonary emboli Continue therapeutic Lovenox. Echocardiogram shows no cardiomyopathy. Hypercoagulability workup in process. Acute bilateral pulmonary emboli Right lower extremity DVT Therapeutic Lovenox Coumadin started Plan to discuss optimal financial option with case management, so treatment could change to something like Eliquis if indicated Hypercoagulability workup Hematology consult Diabetes mellitus type 2 Follow blood sugars Insulin sliding scale Diabetic diet Hypertension Continue baseline treatment Follow blood pressures Adjust treatments as needed DVT prophylaxis Lovenox
[2017-11-13] MEDS: Enoxaparin Inj 100 MG/ML Syringe SQ SCH ×2 (08:24→20:17)
[2017-11-13] MEDS: Sod Chloride 0.9% Inj 1,000 ML IV.CONT SCH ×2 (08:25→20:20)
[2017-11-13] MEDS: Insulin NovoLOG Aspart Correctional Sugar Inj SQ SCH ×4 (08:33→23:42)
[2017-11-13 08:38] LABS: INR 1.1 Ratio; Prothrombin Time 11.3 sec (9.8-11.6)
[2017-11-13 08:40] LABS: Baso # (Auto) 0.1 th/mm3 (0.0-0.2); Baso % (Auto) 1.1 % (0.0-2.0); Eos # (Auto) 0.1 th/mm3 (0.0-0.4); Eos % (Auto) 2.2 % (0.0-4.0); Hematocrit 41.1 % (39.0-51.0); Lymph # (Auto) 2.4 th/mm3 (1.0-4.8); Lymph % (Auto) 42.4 % (9.0-44.0); Mean Corpuscular Hemoglobin 33.1 pg (27.0-34.0); Mean Corpuscular Volume 97.3 fL (80.0-100.0); Mean Platelet Volume 8.4 fL (7.0-11.0); Mono # (Auto) 0.3 th/mm3 (0.0-0.9); Mono % (Auto) 4.5 % (0.0-8.0); Neut # (Auto) 2.9 th/mm3 (1.8-7.7); Neut % (Auto) 49.8 % (16.0-70.0); Platelet Count 222 th/mm3 (150-450); Red Blood Count 4.22 mil/mm3 (4.50-5.90); Red Cell Distribution Width 12.8 % (11.6-17.2); White Blood Count 5.8 th/mm3 (4.0-11.0)
[2017-11-13 08:59] LABS: Albumin 2.9 g/dL (3.4-5.0); Anion Gap 10 meq/L (5-15); Aspartate Aminotransferase 9 U/L (15-37); Blood Urea Nitrogen 8 mg/dL (7-18); Carbon Dioxide 25.8 meq/L (21.0-32.0); Chloride 109 meq/L (98-107); Glomerular Filtration Rate Greater Than 89 mL/min (>89); Glucose,Random 100 mg/dL (74-106); Sodium 145 meq/L (136-145)
[2017-11-13 09:02] LABS: Alanine Aminotransferase 18 U/L (12-78); Alkaline Phosphatase 53 U/L (45-117); Total Protein 6.1 g/dL (6.4-8.2)
--- NOTE | 2017-11-13 11:16 | P.PNIM ---
Subjective Interval history: Complaint of crack cocaine withdrawal today. Right lower extremity still has tenderness and pain. No signs of fever, chest pain, or shortness of breath. Physical Exam Vital signs: Vital Signs 11/12/17 12:00 11/12/17 15:44 11/12/17 16:00 Temperature 97.8 F 97.8 F Pulse Rate 52 L 56 L Respiratory Rate 17 16 17 Blood Pressure 125/71 132/73 Pulse Oximetry 99 98 11/12/17 20:00 11/13/17 00:00 11/13/17 04:00 Temperature 97.6 F 97.7 F 97.2 F L Pulse Rate 55 L 59 L 60 Respiratory Rate 17 17 17 Blood Pressure 128/73 129/73 121/76 Pulse Oximetry 96 98 98 11/13/17 08:00 11/13/17 09:00 Temperature 97.6 F Pulse Rate 47 L 57 L Respiratory Rate 17 Blood Pressure 143/76 H Pulse Oximetry 98 Intake & Output 11/12/17 11/13/17 11/13/17 18:59 06:59 18:59 Intake Total 1480 / 1480 1000 / 1000 Balance 1480 / 1480 1000 / 1000 Intake: IV 1000 / 1000 1000 / 1000 NS Inj 1,000 ML @ 75 mls/hr IV. 1000 / 1000 1000 / 1000 CONT .[id number] ISABELL Rx#:[id number] Oral 480 / 480 Other: # Voids 3 Date of Last Bowel Movement 11/13/17 Narrative: GENERAL: NAD, A&Ox3 HEAD: Normocephalic. NECK: Supple, trachea midline. No lymphadenopathy. EYES: No scleral icterus. No injection or drainage. CARDIOVASCULAR: Regular rate and rhythm without murmurs, gallops, or rubs. RESPIRATORY: Breath sounds equal bilaterally. No accessory muscle use. GASTROINTESTINAL: Abdomen soft, non-tender, nondistended. MUSCULOSKELETAL: No cyanosis, or edema. Right lower extremity edema, mild. SKIN: Warm and dry. NEURO: No focal neurological deficits. Results - Labs CBC & Chem 7: 11/13/17 07:52 11/13/17 07:52 Laboratory Results - last 24 hr 11/12/17 11/12/17 11/12/17 12:09 18:00 20:09 WBC RBC Hgb Hct MCV MCH MCHC RDW Plt Count MPV Neut % (Auto) Lymph % (Auto) Grainger % (Auto) Eos % (Auto) Baso % (Auto) Neut # (Auto) Lymph # (Auto) [place]inger # (Auto) Eos # (Auto) Baso # (Auto) WBC Differential Differential Comment PT INR Sodium Potassium Chloride Carbon Dioxide Anion Gap BUN Creatinine Estimated GFR POC Glucose 128 H 174 H 157 H Random Glucose Calcium Total Bilirubin AST ALT Alkaline Phosphatase Total Protein Albumin 11/13/17 11/13/17 11/13/17 07:52 07:52 07:52 WBC 5.8 RBC 4.22 L Hgb 14.0 Hct 41.1 MCV 97.3 MCH 33.1 MCHC 34.0 RDW 12.8 Plt Count 222 MPV 8.4 Neut % (Auto) 49.8 Lymph % (Auto) 42.4 Grainger % (Auto) 4.5 Eos % (Auto) 2.2 Baso % (Auto) 1.1 Neut # (Auto) 2.9 Lymph # (Auto) 2.4 Grainger # (Auto) 0.3 Eos # (Auto) 0.1 Baso # (Auto) 0.1 WBC Differential . Differential Comment Auto diff final PT 11.3 INR 1.1 Sodium 145 Potassium 4.0 Chloride 109 H Carbon Dioxide 25.8 Anion Gap 10 BUN 8 Creatinine 1.05 Estimated GFR Greater than 89 POC Glucose Random Glucose 100 Calcium 8.0 L Total Bilirubin 0.3 AST 9 L ALT 18 Alkaline Phosphatase 53 Total Protein 6.1 L Albumin 2.9 L 11/13/17 08:00 WBC RBC Hgb Hct MCV MCH MCHC RDW Plt Count MPV Neut % (Auto) Lymph % (Auto) Grainger % (Auto) Eos % (Auto) Baso % (Auto) Neut # (Auto) Lymph # (Auto) Grainger # (Auto) Eos # (Auto) Baso # (Auto) WBC Differential Differential Comment PT INR Sodium Potassium Chloride Carbon Dioxide Anion Gap BUN Creatinine Estimated GFR POC Glucose 98 Random Glucose Calcium Total Bilirubin AST ALT Alkaline Phosphatase Total Protein Albumin Assessment and Plan - Plan 51-year-old male admitted secondary to right lower extremity DVT and acute bilateral pulmonary emboli Continue therapeutic Lovenox. Start Coumadin. Monitor INR. Echocardiogram shows no cardiomyopathy. Hypercoagulability workup in process. Clonidine for crack cocaine withdrawal. Acute bilateral pulmonary emboli Right lower extremity DVT Therapeutic Lovenox Coumadin started Plan to discuss optimal financial option with case management, so treatment could change to something like Eliquis if indicated Hypercoagulability workup Hematology consult Diabetes mellitus type 2 Follow blood sugars Insulin sliding scale Diabetic diet Hypertension Continue baseline treatment Follow blood pressures Adjust treatments as needed DVT prophylaxis Lovenox
[2017-11-14 07:27] LABS: INR 1.1 Ratio; Prothrombin Time 11.5 sec (9.8-11.6)
[2017-11-14] MEDS: Insulin NovoLOG Aspart Correctional Sugar Inj SQ SCH ×5 (07:44→22:14)
[2017-11-14] MEDS: Enoxaparin Inj 100 MG/ML Syringe SQ SCH ×2 (09:08→20:01)
[2017-11-14] MEDS: Sod Chloride 0.9% Inj 1,000 ML IV.CONT SCH ×3 (09:09→22:21)
--- NOTE | 2017-11-14 11:15 | P.PNIM ---
Subjective Interval history: No worsening of right lower extremity symptoms. Cane withdrawal is improved on clonidine. INR is 1.1. Physical Exam Vital signs: Vital Signs 11/13/17 12:00 11/13/17 16:00 11/13/17 20:00 Temperature 97.7 F 98.0 F 97.6 F Pulse Rate 55 L 76 49 L Respiratory Rate 17 17 22 Blood Pressure 139/84 123/69 152/74 H Pulse Oximetry 97 97 95 11/13/17 20:06 11/14/17 00:00 11/14/17 04:00 Temperature 97.7 F 97.6 F Pulse Rate 53 L 46 L 46 L Respiratory Rate 20 20 Blood Pressure 141/74 H 131/72 Pulse Oximetry 99 97 11/14/17 07:32 11/14/17 07:50 11/14/17 08:00 Temperature 97.6 F Pulse Rate 43 L 50 L Respiratory Rate 14 18 Blood Pressure 132/70 Pulse Oximetry 93 L Intake & Output 11/13/17 11/14/17 11/14/17 18:59 06:59 18:59 Intake Total 1582 / 1582 1480 / 1480 1000 / 1000 Balance 1582 / 1582 1480 / 1480 1000 / 1000 Weight 103.9 kg Intake: IV 1000 / 1000 1000 / 1000 1000 / 1000 NS Inj 1,000 ML @ 75 mls/hr IV. 1000 / 1000 1000 / 1000 1000 / 1000 CONT .[id number] ISABELL Rx#:[id number] Oral 582 / 582 480 / 480 Other: # Voids 3 2 Date of Last Bowel Movement 11/13/17 11/13/17 # Bowel Movements 1 Narrative: GENERAL: NAD, A&Ox3 HEAD: Normocephalic. NECK: Supple, trachea midline. No lymphadenopathy. EYES: No scleral icterus. No injection or drainage. CARDIOVASCULAR: Regular rate and rhythm without murmurs, gallops, or rubs. RESPIRATORY: Breath sounds equal bilaterally. No accessory muscle use. GASTROINTESTINAL: Abdomen soft, non-tender, nondistended. MUSCULOSKELETAL: No cyanosis, or edema. Right lower extremity edema, mild. SKIN: Warm and dry. NEURO: No focal neurological deficits. Results - Labs CBC & Chem 7: 11/13/17 07:52 11/13/17 07:52 Laboratory Results - last 24 hr 11/13/17 11/13/1718 11:43 16:54 23:42 PT INR POC Glucose 126 H 119 H 144 H 11/14/17 11/14/17 05:42 07:37 PT 11.5 INR 1.1 POC Glucose 114 H Assessment and Plan - Plan 51-year-old male admitted secondary to right lower extremity DVT and acute bilateral pulmonary emboli Continue therapeutic Lovenox. Continue Coumadin. Monitor INR. Coumadin levels are not yet therapeutic so patient is not stable for discharge yet. Acute bilateral pulmonary emboli Right lower extremity DVT Therapeutic Lovenox Coumadin started Plan to discuss optimal financial option with case management, so treatment could change to something like Eliquis if indicated Hypercoagulability workup Hematology consult Diabetes mellitus type 2 Follow blood sugars Insulin sliding scale Diabetic diet Hypertension Continue baseline treatment Follow blood pressures Adjust treatments as needed DVT prophylaxis Lovenox
[2017-11-15] MEDS: Sod Chloride 0.9% Inj 1,000 ML IV.CONT SCH (00:06)
[2017-11-15 07:29] LABS: INR 1.2 Ratio; Prothrombin Time 12.6 sec (9.8-11.6)
[2017-11-15] MEDS: Enoxaparin Inj 100 MG/ML Syringe SQ SCH (08:23)
[2017-11-15] MEDS: Insulin NovoLOG Aspart Correctional Sugar Inj SQ SCH ×2 (08:26→12:19)
[2017-11-15 08:40] VITALS: RESP 18; O2SAT 97
--- NOTE | 2017-11-15 11:36 | P.PNIM ---
Subjective Interval history: INR is currently 1.2. This is achieved with 7.5 mg of Coumadin daily. Adjustments are needed and are discussed with the patient. Physical Exam Vital signs: Vital Signs 11/14/17 12:00 11/14/17 16:00 11/14/17 20:00 Temperature 97.7 F 97.6 F 97.4 F L Pulse Rate 56 L 65 43 L Respiratory Rate 18 18 22 Blood Pressure 157/78 H 144/75 H 173/86 H Pulse Oximetry 97 97 98 11/14/17 22:15 11/15/17 00:00 11/15/17 04:00 Temperature 97.8 F 97.8 F Pulse Rate 44 L 46 L Respiratory Rate 20 22 20 Blood Pressure 149/73 H 143/73 H Pulse Oximetry 98 96 11/15/17 08:00 Temperature 97.8 F Pulse Rate 51 L Respiratory Rate 18 Blood Pressure 140/77 Pulse Oximetry 97 Intake & Output 11/14/17 11/15/17 11/15/17 18:59 06:59 18:59 Intake Total 1000 / 1000 1360 / 1360 Balance 1000 / 1000 1360 / 1360 Weight 104.8 kg Intake: IV 1000 / 1000 1000 / 1000 NS Inj 1,000 ML @ 75 mls/hr IV. 1000 / 1000 1000 / 1000 CONT .[id number] ISABELL Rx#:[id number] Oral 360 / 360 Other: # Voids 2 Narrative: GENERAL: NAD, A&Ox3 HEAD: Normocephalic. NECK: Supple, trachea midline. No lymphadenopathy. EYES: No scleral icterus. No injection or drainage. CARDIOVASCULAR: Regular rate and rhythm without murmurs, gallops, or rubs. RESPIRATORY: Breath sounds equal bilaterally. No accessory muscle use. GASTROINTESTINAL: Abdomen soft, non-tender, nondistended. MUSCULOSKELETAL: No cyanosis, or edema. Right lower extremity edema, mild. SKIN: Warm and dry. NEURO: No focal neurological deficits. Results - Labs CBC & Chem 7: 11/13/17 07:52 11/13/17 07:52 Laboratory Results - last 24 hr 11/12/17 11/14/17 11/14/17 10:59 12:17 17:03 PT INR POC Glucose 124 H 97 Homocysteine Cardiovas 9.3 11/14/17 11/15/17 19:47 06:32 PT 12.6 H INR 1.2 POC Glucose 178 H Homocysteine Cardiovas Assessment and Plan - Plan 51-year-old male admitted secondary to right lower extremity DVT and acute bilateral pulmonary emboli Not yet therapeutic. Coumadin increased. Continue therapeutic Lovenox. Monitor INR. Coumadin levels are not therapeutic so patient is not stable for discharge yet. Acute bilateral pulmonary emboli Right lower extremity DVT Therapeutic Lovenox Coumadin started Plan to discuss optimal financial option with case management, so treatment could change to something like Eliquis if indicated Hypercoagulability workup Hematology consult Diabetes mellitus type 2 Follow blood sugars Insulin sliding scale Diabetic diet Hypertension Continue baseline treatment Follow blood pressures Adjust treatments as needed DVT prophylaxis Lovenox
[2017-11-15 12:40] VITALS: BP 152/78; PULSE 66; TEMP 97.9
--- NOTE | 2017-11-15 13:44 | P.AMA ---
AMA Note - AMA Note Recommended Treatment Course: Stay till Coumadin levels are therapeutic. Lovenox Bridge. Discharge with chronic Coumadin for life. AMA Statement: Patient Ramila Hurtado has decided to leave the hospital against medical advice. This patient has the capacity to refuse care and understands the risks of leaving, including permanent disability and/or , and has had an opportunity to ask questions about his/her condition. The patient has been informed that he/she may return for care at any time, and follow up has been arranged/advised. - AMA Note Discharge Disposition: Left Against Medical Advice Patient Condition on Discharge: Stable
--- NOTE | 2017-11-15 13:46 | P.DS ---
Date of admission: 11/11/17 15:26 Primary care physician: No Primary Care Physician Brief History from admission: Mr. Hurtado is a 51-year-old male. He has a past history of a large spontaneous pulmonary embolism without unknown etiology. She took Coumadin at that time and eventually Coumadin was discontinued. Today he comes into the emergency department with complaints of right lower extremity pain. Ultrasound imaging shows superficial thrombophlebitis which is likely what was causing his symptoms. However, additionally he has a right lower extremity DVT. He is also found to have bilateral pulmonary emboli. Again, at this time he does not have a good reason for having DVT or PE. No recent surgeries/trauma. No stasis. No family history of hypercoagulability. He complains of no chest pain or shortness of breath. No other complaints at this time. DS: Summary Hospital Course: Mr. Hurtado is a 51-year-old male. He has a past history of pulmonary embolus. He was admitted with symptomatic right lower extremity DVT. DVT was present, thrombophlebitis was present and bilateral pulmonary emboli were present. Hypercoagulability is suspected as an etiology. Patient is started on Coumadin and was using Lovenox as a bridge. Symptoms are improving. He left AMA today before discussing this with me. I am informed that he reported that he had a emergency that he had to leave for. It would have been preferred that he is discharged on a blood thinner, but patient left before providing this information that he was leaving. Patient was not cleared for medical discharge. - Time Spent with Patient Total time spent providing and/or coordinating discharge services: Less than 30 minutes - Quality: VTE Deep Vein Thrombosis/Pulmonary Embolism Present on Admission: Yes Exam Vital signs: Vital Signs 11/14/17 16:00 11/14/17 20:00 11/14/17 22:15 Temperature 97.6 F 97.4 F L Pulse Rate 65 43 L Respiratory Rate 18 22 20 Blood Pressure 144/75 H 173/86 H Pulse Oximetry 97 98 11/15/17 00:00 11/15/17 04:00 11/15/17 08:00 Temperature 97.8 F 97.8 F 97.8 F Pulse Rate 44 L 46 L 51 L Respiratory Rate 22 20 18 Blood Pressure 149/73 H 143/73 H 140/77 Pulse Oximetry 98 96 97 11/15/17 09:00 11/15/17 12:00 Temperature 97.9 F Pulse Rate 57 L 66 Respiratory Rate 18 Blood Pressure 152/78 H Pulse Oximetry 97 Intake & Output 11/14/17 11/15/17 11/15/17 18:59 06:59 18:59 Intake Total 1000 / 1000 1360 / 1360 Balance 1000 / 1000 1360 / 1360 Weight 104.8 kg Intake: IV 1000 / 1000 1000 / 1000 NS Inj 1,000 ML @ 75 mls/hr IV. 1000 / 1000 1000 / 1000 CONT .[id number] ISABELL Rx#:[id number] Oral 360 / 360 Other: # Voids 2 Results Procedures completed during hospitalization: None Labs on day of discharge: Labs from last 24 hours 11/15/17 11/15/17 11/14/17 12:15 06:32 19:47 PT 12.6 H INR 1.2 POC Glucose 102 178 H Homocysteine Cardiovas 11/14/17 11/12/17 17:03 10:59 PT INR POC Glucose 97 Homocysteine Cardiovas 9.3 - Impressions ITS Impressions Chest CTA 11/11/17 10:54 CONCLUSION: 1. There is evidence of pulmonary emboli with multiple filling defects in the pulmonary arteries in branches involving the posterior right lower lung. 2. No acute pulmonary infiltrates. Venous Doppler Study 11/11/17 10:54 CONCLUSION: 1. There is nonocclusive DVT in the right popliteal vein and right peroneal vein. 2. There is nonocclusive thrombus in the superficial system involving the mid greater saphenous vein. Discharge Plan - Discharge Disposition Patient Disposition: Left Against Medical Advice - Discharge Condition Condition: Stable - Physicians Team Primary Care Provider: Primary Care Saumya,Nancy Attending Provider: Yovani Ribeiro Other Providers: Darnell Pate MD
[2017-11-15 23:51] LABS: Activated Protein C Resistance 4.6 ratio (> OR = 2.1)
[2017-11-16 15:51] LABS: Dil Russell Viper Venom Conf ( ND (NEGATIVE); Dil Russell Viper Venom Time M ND (CORRECTED); Lupus Anticoagulant PTT Screen 41 seconds (< OR = 40)
[2017-11-17 16:08] LABS: Factor V Leiden Mutation Negative (Negative); Protein C Antigen 73 % (70-150)
== END 2017-11-15 13:15 | disposition left against medical advice (07) ==
LOC: NEPD 10:00 → NEDA 15:26 → N07 18:10
PROVIDERS: ADMIT Hospitalist; ATTEND Hospitalist

== ENCOUNTER 2017-11-16 10:11 | Inpatient (IN) ==
--- NOTE | 2017-11-16 12:06 | ED ---
HPI General Chief complaint: Recheck/Abnormal Lab/Rx Stated complaint: Wants Re-Admit Time Seen by Provider: 11/16/17 11:47 History of Present Illness HPI narrative: This Is a 51-year-old male who was recently admitted for DVT of the right lower extremity and bilateral pulmonary emboli. He reports that he left AGAINST MEDICAL ADVICE yesterday and is requesting to be readmitted. He reports continued pain in his right calf mild aching aggravated by walking. Denies chest pain or shortness of breath. He reports that he had to leave in order to use crack cocaine last night. According to chart review the patient was in the middle of a hypercoagulopathy workup and he was being bridged from Lovenox to Coumadin. Last INR on record was 1.2. No other complaints at this time. Related Data Home Medications Medication Instructions Recorded Confirmed No Known Home Medications 11/11/17 11/16/17 Allergies Allergy/AdvReac Type Severity Reaction Status Date / Time No Known Allergies Allergy Unverified 11/11/17 10:47 Review of Systems ROS: all other systems reviewed are negative [facility] Medical History Medical History Alcohol withdrawal seizure (Acute) Bipolar disorder (Acute) Schizoaffective disorder (Acute) Drug abuse (Acute) Alcohol abuse (Acute) PTSD (post-traumatic stress disorder) (Acute) History of deep venous thrombosis (DVT) of distal vein of right lower extremity (Acute) History of pulmonary embolus (PE) (Acute) Lipoma of neck (Acute) Diabetes (Acute) HTN (hypertension) (Acute) Family History Family History Sister Lupus Mother Congestive heart failure COPD (chronic obstructive pulmonary disease) Father Chronic kidney disease Prostate cancer Other Osteoarthritis Social History Social History Substance History: Active Abuse Second Hand Smoke Exposure: No Smoking Status: Current every day smoker Tobacco Type: Cigarettes How Often Do You Have a Drink Containing Alcohol: 4 or more times a week Recent Travel in [facility] within the Last 8 Weeks: No Recent Out of Country Travel within the Last 8 Weeks: No Exam Narrative Exam Narrative: GENERAL: Well-developed well-nourished male in no acute distress SKIN: Warm and dry. HEAD: Atraumatic. Normocephalic. EYES: Pupils equal and round. No scleral icterus. No injection or drainage. ENT: No nasal bleeding or discharge. Mucous membranes pink and moist. NECK: Trachea midline. No JVD. CARDIOVASCULAR: Regular rate and rhythm. No murmur appreciated. RESPIRATORY: No accessory muscle use. Clear to auscultation. Breath sounds equal bilaterally. GASTROINTESTINAL: Abdomen soft, non-tender, nondistended. Hepatic and splenic margins not palpable. MUSCULOSKELETAL: Trace edema right lower extremity. NEUROLOGICAL: Awake and alert. No obvious cranial nerve deficits. Motor grossly within normal limits. Normal speech. PSYCHIATRIC: Appropriate mood and affect; insight and judgment normal. Course Initial Documented Vital Signs Temperature 97.7 F 11/16/17 10:14 Pulse Rate 71 11/16/17 10:14 Respiratory Rate 19 11/16/17 10:14 Blood Pressure 147/78 H 11/16/17 10:14 Pulse Oximetry 99 11/16/17 10:14 Last Documented Vital Signs Temperature 97.7 F 11/16/17 10:14 Pulse Rate 71 11/16/17 10:14 Respiratory Rate 19 11/16/17 10:14 Blood Pressure 147/78 H 11/16/17 10:14 Pulse Oximetry 99 11/16/17 10:14 Medical Decision Making [facility] Narrative Medical decision making narrative: We will obtain basic lab work. The patient was given a dose of Lovenox. Lab work is been reviewed. The patient will be admitted to the hospitalist service, discussed with Dr. Winston who is agreeable. Medical Screen Exam Complete: Yes Emergency Medical Condition: Yes Differential Diagnosis Differential Diagnosis: Noncompliance, DVT, PE Lab Data Result diagrams: 11/16/17 12:10 11/16/17 12:10 Lab Results 11/16/17 11/16/17 11/16/17 Range/Units 12:10 12:10 12:10 WBC 9.2 (4.0-11.0) th/mm3 RBC 4.47 L (4.50-5.90) mil/mm3 Hgb 14.7 (13.0-17.0) gm/dL Hct 43.3 (39.0-51.0) % MCV 96.9 (80.0-100.0) fL MCH 32.9 (27.0-34.0) pg MCHC 33.9 (32.0-36.0) % RDW 12.8 (11.6-17.2) % Plt Count 250 (150-450) th/mm3 MPV 8.8 (7.0-11.0) fL Neut % (Auto) 81.3 H (16.0-70.0) % Lymph % (Auto) 14.0 (9.0-44.0) % Assumption % (Auto) 3.9 (0.0-8.0) % Eos % (Auto) 0.4 (0.0-4.0) % Baso % (Auto) 0.4 (0.0-2.0) % Neut # (Auto) 7.5 (1.8-7.7) th/mm3 Lymph # (Auto) 1.3 (1.0-4.8) th/mm3 Assumption # (Auto) 0.4 (0.0-0.9) th/mm3 Eos # (Auto) 0.0 (0.0-0.4) th/mm3 Baso # (Auto) 0.0 (0.0-0.2) th/mm3 WBC Differential . Differential Comment Auto diff final PT 12.3 H (9.8-11.6) sec INR 1.2 Ratio APTT 28.5 (24.3-30.1) sec Sodium 144 (136-145) meq/L Potassium 4.1 (3.5-5.1) meq/L Chloride 108 H (98-107) meq/L Carbon Dioxide 26.9 (21.0-32.0) meq/L Anion Gap 9 (5-15) meq/L BUN 8 (7-18) mg/dL Creatinine 1.20 (0.60-1.30) mg/dL Estimated GFR 78 L (>89) mL/min Random Glucose 128 H (74-106) mg/dL Calcium 8.9 (8.5-10.1) mg/dL Discharge Plan Discharge Disposition Patient Disposition: 30 Still Patient Discharge Condition Condition: Stable Discharge Details Diagnosis: DVT (deep venous thrombosis), Pulmonary embolism Physicians Team ED Provider: Ralph Todd ED Midlevel Provider: [place] Herndon Primary Care Provider: Primary Care Nancy Kerns Rxs /Orders / Referrals /Forms Prescriptions: No Action No Known Home Medications RF: 0 Status ED Status: With Doctor
[2017-11-16] MEDS ORDERED: Enoxaparin Inj 100 MG/ML Syringe SQ ONE ×2 (12:18→12:30)
[2017-11-16 13:08] LABS: Baso % (Auto) 0.4 % (0.0-2.0); Eos % (Auto) 0.4 % (0.0-4.0); Hematocrit 43.3 % (39.0-51.0); Hemoglobin 14.7 gm/dL (13.0-17.0); Lymph # (Auto) 1.3 th/mm3 (1.0-4.8); Mean Corpuscular HGB Conc 33.9 % (32.0-36.0); Mean Corpuscular Hemoglobin 32.9 pg (27.0-34.0); Mean Corpuscular Volume 96.9 fL (80.0-100.0); Mean Platelet Volume 8.8 fL (7.0-11.0); Mono # (Auto) 0.4 th/mm3 (0.0-0.9); Mono % (Auto) 3.9 % (0.0-8.0); Neut # (Auto) 7.5 th/mm3 (1.8-7.7); Neut % (Auto) 81.3 % (16.0-70.0); Platelet Count 250 th/mm3 (150-450); Red Blood Count 4.47 mil/mm3 (4.50-5.90); Red Cell Distribution Width 12.8 % (11.6-17.2); White Blood Count 9.2 th/mm3 (4.0-11.0)
[2017-11-16 13:20] LABS: Activated Partial Thrombo Time 28.5 sec (24.3-30.1); INR 1.2 Ratio; Prothrombin Time 12.3 sec (9.8-11.6)
[2017-11-16 13:25] LABS: Calcium 8.9 mg/dL (8.5-10.1); Carbon Dioxide 26.9 meq/L (21.0-32.0); Potassium 4.1 meq/L (3.5-5.1)
[2017-11-16] MEDS ORDERED: Dextrose 50% in Water 50 ML Vial IV.PUSH PRN (14:48)
--- NOTE | 2017-11-16 15:06 | P.HP ---
History of Present Illness Primary Care Physician: No Primary Care Physician Chief Complaint: Right lower extremity pain History of Present Illness: 51-year-old man with a significant history of VTE, diabetes type 2 and cocaine abuse was recently admitted on November 11, 2017 for right lower extremity DVT and bilateral pulmonary embolism however decided to sign AMA yesterday to go smoke some crack cocaine, returned to the ED for readmission. On November 11, 2017, patient presented initially to the ED for right lower extremity pain 10 days duration. At the time of presentation he underwent ultrasound Doppler studies which was positive for DVT of the right lower extremity. A CT angiogram of the thorax was also performed and revealed evidence of pulmonary emboli with multiple filling defects. Patient was admitted and initiated on therapeutic anticoagulation with Lovenox and subsequently started on Coumadin. Patient reported a history of venous thromboembolism back in 2008 when he was diagnosed with pulmonary emboli and treated with Coumadin for up to 7 months. But, on November 15, 2017 patient decided to sign AMA to go out to smoke some crack cocaine. He now return stable with complaint of right lower extremity pain but denies any significant shortness of breath. He has no chest pain. - Diagnosis (1) DVT (deep venous thrombosis) (2) Pulmonary embolism (3) Drug abuse Inpatient Certification: I certify that the inpatient services were ordered in accordance with Medicare regulations governing the order. This includes certification that hospital inpatient services are reasonable and necessary and in the case of services not specified as inpatient-only under 42 CFR 419.22(n), that they are appropriately provided as inpatient services in accordance to with the 2-midnight benchmark under 43 CFR 412.3(e) Estimated Total Length of Stay (Days): 2 Plans for Post Hospital Care: Not yet determined Review of Systems All other systems reviewed negative except as stated in HPI [facility] - History History Provided By: Patient - Medical History Medical History: Medical History (Last Reviewed 12/09/17 @ 18:53 by Megan Ritchie) Alcohol withdrawal seizure (Acute) Bipolar disorder (Acute) Schizoaffective disorder (Acute) Drug abuse (Acute) Alcohol abuse (Acute) PTSD (post-traumatic stress disorder) (Acute) History of deep venous thrombosis (DVT) of distal vein of right lower extremity (Acute) History of pulmonary embolus (PE) (Acute) Lipoma of neck (Acute) Diabetes (Acute) HTN (hypertension) - Family History Family History: Family History (Last Updated 11/11/17 @ 19:31 by Darnell Pate MD) Sister Lupus Mother Congestive heart failure COPD (chronic obstructive pulmonary disease) Father Chronic kidney disease Prostate cancer Other Osteoarthritis - Tobacco History Second Hand Smoke Exposure: No Tobacco Use In Past 30 Days: Yes Smoking Status: Current every day smoker Tobacco Type: Cigarettes - Alcohol History How Often Do You Have a Drink Containing Alcohol: 4 or more times a week - Substance Use History Substance History: Active Abuse - Substance Use Type Crack/Cocaine Status: Active Route Used: Inhalation Frequency: daily Last Used: november 10 Reason for Use: Get High - Travel History Recent Travel in the [place] Within the Last 8 Weeks: No Recent Travel Out of the Country Within the Last 8 Weeks: No - Immunization History Tetanus Immunization: <5 Years Hx Influenza Vaccine This Season: No Medications and Allergies Active Medications: Active Medications Al Hydroxide/Mg Hydroxide (Milk Of Sheila Palma) 30 ml PO Q12H PRN PRN Reason: Mild Constipation Dextrose (D50w Vial) 50 ml IV.PUSH UNSCH PRN PRN Reason: PER HYPOGLYCEMIA PROTOCOL Enoxaparin Sodium (Lovenox Inj) 100 mg SQ Q12HR ISABELL Glucagon (Glucagon Inj) 1 mg OTHER PRN PRN PRN Reason: for Hypoglycemia Protocol Insulin Aspart (Novolog Insulin Correctional Sugar Inj) 0 unit SQ ACHS ISABELL; Protocol Warfarin Sodium (Coumadin) 5 mg PO DAILY@1600 ISABELL Allergies Allergy/AdvReac Type Severity Reaction Status Date / Time No Known Allergies Allergy Verified 12/09/17 21:47 Home Medications Medication Instructions Recorded Confirmed Type quetiapine [Seroquel XR] 150 mg PO BID 11/17/17 11/17/17 History lisinopril 20 mg PO DAILY 12/09/17 12/09/17 History metformin 500 mg PO BID 12/09/17 12/09/17 History Exam Vital signs: Vital Signs 11/16/17 10:14 Temperature 97.7 F Pulse Rate 71 Respiratory Rate 19 Blood Pressure 147/78 H Pulse Oximetry 99 Intake & Output 11/15/17 11/16/17 11/16/17 18:59 06:59 18:59 Weight 103.419 kg Narrative: GENERAL: NAD SKIN: Warm and dry. HEAD: Atraumatic. Normocephalic. EYES: Pupils equal and round. No scleral icterus. No injection or drainage. ENT: No nasal bleeding or discharge. Mucous membranes pink and moist. NECK: Trachea midline. No JVD. CARDIOVASCULAR: Regular rate and rhythm. RESPIRATORY: No accessory muscle use. Clear to auscultation. Breath sounds equal bilaterally. GASTROINTESTINAL: Abdomen soft, non-tender, nondistended. Hepatic and splenic margins not palpable. MUSCULOSKELETAL: Extremities without clubbing, cyanosis, or edema. No obvious deformities. NEUROLOGICAL: Awake and alert. No obvious cranial nerve deficits. Motor grossly within normal limits. Five out of 5 muscle strength in the arms and legs. Normal speech. PSYCHIATRIC: Appropriate mood and affect; insight and judgment normal. Results - Labs CBC & Chem 7: 11/17/17 06:53 11/17/17 06:53 Labs: Laboratory Results - last 24 hr 11/16/17 11/16/17 11/16/17 12:10 12:10 12:10 WBC 9.2 RBC 4.47 L Hgb 14.7 Hct 43.3 MCV 96.9 MCH 32.9 MCHC 33.9 RDW 12.8 Plt Count 250 MPV 8.8 Neut % (Auto) 81.3 H Lymph % (Auto) 14.0 Bertie % (Auto) 3.9 Eos % (Auto) 0.4 Baso % (Auto) 0.4 Neut # (Auto) 7.5 Lymph # (Auto) 1.3 Bertie # (Auto) 0.4 Eos # (Auto) 0.0 Baso # (Auto) 0.0 WBC Differential . Differential Comment Auto diff final PT 12.3 H INR 1.2 APTT 28.5 Sodium 144 Potassium 4.1 Chloride 108 H Carbon Dioxide 26.9 Anion Gap 9 BUN 8 Creatinine 1.20 Estimated GFR 78 L Random Glucose 128 H Calcium 8.9 Caprini VTE Risk Assessment Caprini VTE Risk Assessment: No/Low Risk (score <= 1) Caprini Risk Assessment Model: Point Value = 1 Point Value = 2 Point Value = 3 Point Value = 5 Age 41-60 Minor surgery BMI > 25 kg/m2 Swollen legs Varicose veins or History of unexplained or recurrent spontaneous Oral contraceptives or hormone replacement Sepsis (< 1 month) Serious lung disease, including pneumonia (< 1 month) Abnormal pulmonary function Acute myocardial infarction Congestive heart failure (< 1 month) History of inflammatory bowel disease Medical patient at bed rest Age 61-74 Arthroscopic surgery Major open surgery (> 45 min) Laparoscopic surgery (> 45 min) Malignancy Confined to bed (> 72 hours) Immobilizing plaster cast Central venous access Age >= 75 History of VTE Family history of VTE Factor V Leiden Prothrombin [id number] Lupus anticoagulant Anticardiolipin antibodies Elevated serum homocysteine Heparin-induced thrombocytopenia Other congenital or acquired thrombophilia Stroke (< 1 month) Elective arthroplasty Hip, pelvis, or leg fracture Acute spinal cord injury (< 1 month) Prophylaxis Regimen: Total Risk Factor Score Risk Level Prophylaxis Regimen 0-1 Low Early ambulation 2 Moderate Order ONE of the following: *Sequential Compression Device (SCD) *Heparin 5000 units SQ BID 3-4 Higher Order ONE of the following medications: *Heparin 5000 units SQ TID *Enoxaparin/Lovenox 40 mg SQ daily (WT < 150 kg, CrCl > 30 mL/min) *Enoxaparin/Lovenox 30 mg SQ daily (WT < 150 kg, CrCl > 10-29 mL/min) *Enoxaparin/Lovenox 30 mg SQ BID (WT < 150 kg, CrCl > 30 mL/min) AND/OR *Sequential Compression Device (SCD) 5 or more Highest Order ONE of the following medications: *Heparin 5000 units SQ TID (Preferred with Epidurals) *Enoxaparin/Lovenox 40 mg SQ daily (WT < 150 kg, CrCl > 30 mL/min) *Enoxaparin/Lovenox 30 mg SQ daily (WT < 150 kg, CrCl > 10-29 mL/min) *Enoxaparin/Lovenox 30 mg SQ BID (WT < 150 kg, CrCl > 30 mL/min) AND *Sequential Compression Device (SCD) Assessment and Plan - Assessment (1) DVT (deep venous thrombosis) Code(s): I82.409 - Acute embolism and thrombosis of unspecified deep veins of unspecified lower extremity Status: Acute (2) Pulmonary embolism Code(s): I26.99 - Other pulmonary embolism without acute cor pulmonale Status : Acute (3) Drug abuse Code(s): F19.10 - Other psychoactive substance abuse, uncomplicated Status: Acute - Plan 51-year-old man with Acute on recurrent bilateral pulmonary embolism Right lower extremity DVT Resume Lovenox 1 mg/kg every 12 hours 1 more day Restart Coumadin 5 mg daily with INR monitoring Continue monitoring hypercoagulable state Reconsult hematology Diabetes type 2 Insulin sliding scale with fingerstick blood glucose monitoring Consider starting metformin 500 mg daily, as last A1c of 7.15 June 2015. Will recheck A1c Hypertension Will start patient on low-dose of lisinopril 10 mg daily Polysubstance abuse including cocaine Extensively counseled against Tobacco abuse Tobacco cessation counseling provided Nicotine patch DVT prophylaxis: Lovenox
[2017-11-16] MEDS ORDERED: Warfarin Consult Pharmacy OTHER PRN (15:07)
[2017-11-16] MEDS: Insulin NovoLOG Aspart Correctional Sugar Inj SQ SCH ×2 (17:17→20:16)
[2017-11-16] MEDS: Acetaminophen 325 MG Tablet PO PRN (22:20)
[2017-11-17] MEDS: Enoxaparin Inj 100 MG/ML Syringe SQ SCH ×2 (00:53→12:20)
[2017-11-17 07:25] LABS: Baso # (Auto) 0.1 th/mm3 (0.0-0.2); Baso % (Auto) 0.9 % (0.0-2.0); Eos # (Auto) 0.2 th/mm3 (0.0-0.4); Eos % (Auto) 2.5 % (0.0-4.0); Hematocrit 40.7 % (39.0-51.0); Hemoglobin 14.2 gm/dL (13.0-17.0); Lymph # (Auto) 2.3 th/mm3 (1.0-4.8); Lymph % (Auto) 38.5 % (9.0-44.0); Mean Corpuscular HGB Conc 34.9 % (32.0-36.0); Mean Corpuscular Hemoglobin 33.1 pg (27.0-34.0); Mean Corpuscular Volume 94.8 fL (80.0-100.0); Mean Platelet Volume 9.5 fL (7.0-11.0); Mono # (Auto) 0.3 th/mm3 (0.0-0.9); Mono % (Auto) 4.8 % (0.0-8.0); Neut # (Auto) 3.2 th/mm3 (1.8-7.7); Neut % (Auto) 53.3 % (16.0-70.0); Platelet Count 213 th/mm3 (150-450); Red Blood Count 4.29 mil/mm3 (4.50-5.90); Red Cell Distribution Width 12.5 % (11.6-17.2); White Blood Count 6.1 th/mm3 (4.0-11.0)
[2017-11-17 07:31] LABS: INR 1.2 Ratio; Prothrombin Time 12.3 sec (9.8-11.6)
[2017-11-17 07:50] LABS: Albumin 3.3 g/dL (3.4-5.0); Anion Gap 9 meq/L (5-15); Aspartate Aminotransferase 84 U/L (15-37); Blood Urea Nitrogen 10 mg/dL (7-18); Calcium 8.5 mg/dL (8.5-10.1); Carbon Dioxide 24.1 meq/L (21.0-32.0); Chloride 110 meq/L (98-107); Glomerular Filtration Rate 88 mL/min (>89); Glucose,Random 109 mg/dL (74-106); Potassium 3.9 meq/L (3.5-5.1); Sodium 143 meq/L (136-145)
[2017-11-17 07:51] LABS: Alanine Aminotransferase 134 U/L (12-78)
[2017-11-17 07:53] LABS: Alkaline Phosphatase 56 U/L (45-117); Total Protein 6.7 g/dL (6.4-8.2)
[2017-11-17] MEDS: Insulin NovoLOG Aspart Correctional Sugar Inj SQ SCH ×4 (09:05→21:00)
[2017-11-17] MEDS: Lisinopril 10 MG Tablet PO SCH (09:05)
[2017-11-17] MEDS: Acetaminophen 325 MG Tablet PO PRN (09:10)
--- NOTE | 2017-11-17 11:50 | P.PNIM ---
Physical Exam Vital signs: Vital Signs 11/16/17 16:00 11/16/17 20:00 11/17/17 00:00 Temperature 98.0 F 98.0 F 97.7 F Pulse Rate 43 L 58 L 47 L Respiratory Rate 18 18 18 Blood Pressure 148/88 H 154/85 H 157/87 H Pulse Oximetry 96 96 98 11/17/17 04:00 11/17/17 08:00 Temperature 97.4 F L 97.7 F Pulse Rate 43 L 42 L Respiratory Rate 18 18 Blood Pressure 145/85 H 150/86 H Pulse Oximetry 96 96 Intake & Output 11/16/17 11/17/17 11/17/17 18:59 06:59 18:59 Intake Total 240 / 240 Balance 240 / 240 Weight 103.3 kg 104.7 kg Intake: Oral 240 / 240 Other: # Voids 3 # Bowel Movements 1 Narrative: GENERAL: Patient sitting up in bed. Appears comfortable. Alert and oriented 3. SKIN: Warm and dry. HEAD: Normocephalic. EYES: No scleral icterus. No injection or drainage. NECK: Supple, trachea midline. No JVD. CARDIOVASCULAR: Regular rate and rhythm without murmurs, gallops, or rubs. RESPIRATORY: Breath sounds equal bilaterally. No accessory muscle use. GASTROINTESTINAL: Abdomen soft, non-tender, nondistended. MUSCULOSKELETAL: No cyanosis. Trace bilateral lower extremity edema. Right leg saphenous vein cording BACK: Nontender without obvious deformity. No CVA tenderness. Results - Labs CBC & Chem 7: 11/17/17 06:53 11/17/17 06:53 Laboratory Results - last 24 hr 11/16/17 11/16/17 11/16/17 12:10 12:10 12:10 WBC 9.2 RBC 4.47 L Hgb 14.7 Hct 43.3 MCV 96.9 MCH 32.9 MCHC 33.9 RDW 12.8 Plt Count 250 MPV 8.8 Neut % (Auto) 81.3 H Lymph % (Auto) 14.0 Robertson % (Auto) 3.9 Eos % (Auto) 0.4 Baso % (Auto) 0.4 Neut # (Auto) 7.5 Lymph # (Auto) 1.3 Robertson # (Auto) 0.4 Eos # (Auto) 0.0 Baso # (Auto) 0.0 WBC Differential . Differential Comment Auto diff final PT 12.3 H INR 1.2 APTT 28.5 Sodium 144 Potassium 4.1 Chloride 108 H Carbon Dioxide 26.9 Anion Gap 9 BUN 8 Creatinine 1.20 Estimated GFR 78 L POC Glucose Random Glucose 128 H Calcium 8.9 Total Bilirubin AST ALT Alkaline Phosphatase Total Protein Albumin 11/16/17 11/16/17 11/17/17 17:10 20:12 06:53 WBC 6.1 RBC 4.29 L Hgb 14.2 Hct 40.7 MCV 94.8 MCH 33.1 MCHC 34.9 RDW 12.5 Plt Count 213 MPV 9.5 Neut % (Auto) 53.3 Lymph % (Auto) 38.5 Robertson % (Auto) 4.8 Eos % (Auto) 2.5 Baso % (Auto) 0.9 Neut # (Auto) 3.2 Lymph # (Auto) 2.3 Robertson # (Auto) 0.3 Eos # (Auto) 0.2 Baso # (Auto) 0.1 WBC Differential . Differential Comment Auto diff final PT INR APTT Sodium Potassium Chloride Carbon Dioxide Anion Gap BUN Creatinine Estimated GFR POC Glucose 89 196 H Random Glucose Calcium Total Bilirubin AST ALT Alkaline Phosphatase Total Protein Albumin 11/17/17 11/17/17 11/17/17 06:53 06:53 08:18 WBC RBC Hgb Hct MCV MCH MCHC RDW Plt Count MPV Neut % (Auto) Lymph % (Auto) Robertson % (Auto) Eos % (Auto) Baso % (Auto) Neut # (Auto) Lymph # (Auto) Robertson # (Auto) Eos # (Auto) Baso # (Auto) WBC Differential Differential Comment PT 12.3 H INR 1.2 APTT Sodium 143 Potassium 3.9 Chloride 110 H Carbon Dioxide 24.1 Anion Gap 9 BUN 10 Creatinine 1.08 Estimated GFR 88 L POC Glucose 115 H Random Glucose 109 H Calcium 8.5 Total Bilirubin 0.3 AST 84 H ALT 134 H Alkaline Phosphatase 56 Total Protein 6.7 D Albumin 3.3 L Assessment and Plan - Assessment (1) DVT (deep venous thrombosis) Code(s): I82.409 - Acute embolism and thrombosis of unspecified deep veins of unspecified lower extremity Status: Acute (2) Pulmonary embolism Code(s): I26.99 - Other pulmonary embolism without acute cor pulmonale Status : Acute (3) Drug abuse Code(s): F19.10 - Other psychoactive substance abuse, uncomplicated Status: Acute - Plan 51-year-old man with //Acute on recurrent bilateral pulmonary embolism //Right lower extremity DVT Resume Lovenox 1 mg/kg every 12 hours 1 more day Restart Coumadin 5 mg daily with INR monitoring Continue monitoring hypercoagulable state Reconsult hematology = Follow-up hematology recommendations. Appreciate assistance. //Diabetes type 2 Insulin sliding scale with fingerstick blood glucose monitoring Consider starting metformin 500 mg daily, as last A1c of 7.15 June 2015. Will recheck A1c = 1 sugars controlled. A1c pending. //Hypertension Will start patient on low-dose of lisinopril 10 mg daily //Polysubstance abuse including cocaine Extensively counseled against //Tobacco abuse Tobacco cessation counseling provided Nicotine patch //DVT prophylaxis: Lovenox Discharge Planning: Pending hematology clearance.
[2017-11-17 15:53] LABS: Hemoglobin A1c 6.7 % (4.3-6.0)
[2017-11-17] MEDS ORDERED: LORazepam 1 MG Tablet PO ONE (23:08)
[2017-11-17] MEDS: QUEtiapine 100 MG Tablet PO SCH (23:50)
[2017-11-18] MEDS: Enoxaparin Inj 100 MG/ML Syringe SQ SCH ×2 (00:02→12:16)
[2017-11-18 04:52] LABS: INR 1.2 Ratio; Prothrombin Time 12.2 sec (9.8-11.6)
[2017-11-18] MEDS: Insulin NovoLOG Aspart Correctional Sugar Inj SQ SCH ×2 (08:13→12:45)
--- NOTE | 2017-11-18 08:44 | P.PNONC ---
Subjective Interval history: Mr. Hurtado was seen and examined, vital signs, labs, hypercoagulable workup, most recent admission note and progress notes reviewed. Please review my full consult note dated 11/11/2017 for additional details regarding the patient's recent history with regards to pulmonary emboli and lower extremity deep venous thromboses. The patient was admitted at that time for anticoagulation and a prothrombotic workup. He however left AGAINST MEDICAL ADVICE but shortly thereafter returned to the hospital because he was having increased pain in his lower extremity. Subjectively; the patient reports feeling much better overall, he denies having difficulty breathing or chest pain, he denies overt bleeding and tells me the pain in his legs have resolved. Objective Vital Signs/Intake & Output: Vital Signs 11/17/17 12:00 11/17/17 16:00 11/17/17 20:00 Temperature 97.6 F 98.2 F 98.2 F Pulse Rate 51 L 49 L 62 Respiratory Rate 18 18 20 Blood Pressure 152/91 H 144/81 H 147/83 H Pulse Oximetry 97 98 94 L 11/18/17 00:00 11/18/17 04:00 Temperature 98.0 F 98.0 F Pulse Rate 56 L 44 L Respiratory Rate 20 18 Blood Pressure 152/79 H 131/75 Pulse Oximetry 94 L 93 L Intake & Output 11/17/17 11/18/17 11/18/17 18:59 06:59 18:59 Intake Total 720 / 720 Balance 720 / 720 Weight 103.4 kg Intake: Oral 720 / 720 Other: # Voids 7 1 # Bowel Movements 1 Result Diagrams: 11/17/17 06:53 11/17/17 06:53 Laboratory Results: Laboratory Results - last 24 hr 11/17/17 11/17/17 11/17/17 06:53 08:18 19:35 PT INR POC Glucose 115 H 206 H Hemoglobin A1c 6.7 H 11/18/17 11/18/17 04:25 08:11 PT 12.2 H INR 1.2 POC Glucose 99 Hemoglobin A1c Medications: Active Medications Generic Name Dose Route Start Last Admin Trade Name Freq PRN Reason Stop Dose Admin Acetaminophen 650 mg 11/16/17 22:10 11/17/17 09:10 Tylenol PO 650 mg Q4H PRN Administration PAIN 1-10 AND/OR FEVER >101F Enoxaparin Sodium 100 mg 11/17/17 01:00 11/18/17 00:02 Lovenox Inj SQ 100 mg Q12H ISABELL Administration Insulin Aspart 0 unit 11/16/17 17:00 11/18/17 08:13 Novolog Insulin Correctional Sugar Inj SQ Not Given ACHS [facility] Protocol Lisinopril 10 mg 11/17/17 09:00 11/17/17 09:05 Prinivil PO 10 mg DAILY ISABELL Administration Nicotine 1 patch 11/17/17 09:00 11/17/17 09:05 Habitrol 21 Mg Patch.24 Hr T-DERMAL 1 patch DAILY ISABELL Administration Patch Removal 1 each 11/16/17 21:00 11/17/17 21:01 Remove Old Patch T-DERMAL 1 each HS ISABELL Administration Quetiapine Fumarate 150 mg 11/17/17 23:15 11/17/17 23:50 Seroquel PO 150 mg BID ISABELL Administration Warfarin Sodium 5 mg 11/16/17 16:00 11/17/17 17:18 Coumadin PO 5 mg DAILY@1600 ISABELL Administration Objective Remarks: GENERAL: Middle-age male, laying in bed, he does not appear distressed, well- nourished, well-developed patient. SKIN: Warm and dry. HEAD: Normocephalic. EYES: No scleral icterus. No injection or drainage. NECK: Supple, trachea midline. No JVD or lymphadenopathy. LYMPHATIC: No adenopathy. CARDIOVASCULAR: Regular rate and rhythm without murmurs. RESPIRATORY: Breath sounds equal bilaterally. No accessory muscle use. GASTROINTESTINAL: Abdomen soft, non-tender, nondistended. EXTREMITIES: No cyanosis, or edema. MUSCULOSKELETAL: Adequate muscle tone. NEUROLOGICAL: No obvious focal deficit. Awake, alert, and oriented x3. PSYCHIATRIC: Appropriate mood and affect; insight and judgment normal. Assessment/Plan - Plan Mr. Hurtado is a 51-year-old man with a history of venous thromboembolism dating back several years. Please see my initial consult note dated 11/11/2017 for a more in-depth account of the patient's history and the treatment interventions rendered. 1 week ago this patient was hospitalized after being diagnosed with pulmonary emboli and a lower extremity deep venous thrombosis. He was initiated on therapeutic anticoagulation, a prothrombotic workup was initiated as well. Because the patient has significant psychiatric issues including schizoaffective disorder, bipolar disorder, depression, anxiety, PTSD and substance abuse he reports getting anxious while in the hospital and left AGAINST MEDICAL ADVICE. He was rehospitalized on 11/16/2017 because he was having pain in his leg, he denies having had worsening difficulty breathing. The patient is now appropriately anticoagulated with Lovenox and is being bridged to warfarin. Results of his prothrombotic workup revealed no evidence of an underlying prothrombotic state, he has no evidence of antiphospholipid antibodies, circulating lupus anticoagulant is negative, prothrombin gene mutation is negative, there is no evidence of protein C or protein S deficiency, factor V Leiden mutation was also negative. It is my assessment that the patient's recurrent lower extremity venous thromboses are related to previous injuries as well as previous DVT. Recommendations: 1. Recurrent lower extremity venous thrombosis associated with pulmonary emboli : Continue therapeutic anticoagulation with Lovenox with bridging to warfarin. I did talk to the patient today about warfarin therapy, I explained to him that he will need to actively participate in his care by monitoring his diet i.e. by avoiding green leafy vegetables, notifying his physicians and care providers about him being on warfarin before starting any as well as regular follow-up with medical providers for PT/INR checks to monitor levels of anticoagulation. I explained to the patient that alternatives to warfarin exist however these are expensive and because of his lack of insurance it would be unlikely that he would be able to afford the cost associated with the novel oral factor Xa inhibitors. The patient expresses understanding. He tells me every day is a challenge for him when he comes to substance abuse and with regards to his psychiatric issues. I have informed him that I will be available to see him to help monitor his anticoagulation and to advise him. However, he has to be the one who is responsible to come in to see me and to have blood work done. Ultimately, he will be responsible for taking his medications as directed and to follow medical advice. Disposition: Continue Lovenox with bridging to warfarin. The goal INR is 2-3, he may be discharged when his INR levels are therapeutic. Or he may be discharged sooner if he is able to self administer Lovenox injections and to follow up reliably for PT/INR checks. Thank you for asking me to participate in the care of this patient.
[2017-11-18 09:01] VITALS: RESP 19
[2017-11-18] MEDS: QUEtiapine 100 MG Tablet PO SCH (10:10)
[2017-11-18] MEDS: Lisinopril 10 MG Tablet PO SCH (10:11)
--- NOTE | 2017-11-18 10:52 | P.PNIM ---
Subjective Interval history: Patient says he is feeling right. Denies any chest pain or shortness of breath. Denies nausea, vomiting. Physical Exam Vital signs: Vital Signs 11/17/17 12:00 11/17/17 16:00 11/17/17 20:00 Temperature 97.6 F 98.2 F 98.2 F Pulse Rate 51 L 49 L 62 Respiratory Rate 18 18 20 Blood Pressure 152/91 H 144/81 H 147/83 H Pulse Oximetry 97 98 94 L 11/18/17 00:00 11/18/17 04:00 11/18/17 08:00 Temperature 98.0 F 98.0 F 98.0 F Pulse Rate 56 L 44 L 45 L Respiratory Rate 20 18 19 Blood Pressure 152/79 H 131/75 134/77 Pulse Oximetry 94 L 93 L 95 Intake & Output 11/17/17 11/18/17 11/18/17 18:59 06:59 18:59 Intake Total 720 / 720 Balance 720 / 720 Weight 103.4 kg Intake: Oral 720 / 720 Other: # Voids 7 1 # Bowel Movements 1 Narrative: GENERAL: Patient sitting up in bed. Appears comfortable. Alert and oriented 3. No change on exam. SKIN: Warm and dry. HEAD: Normocephalic. EYES: No scleral icterus. No injection or drainage. NECK: Supple, trachea midline. No JVD. CARDIOVASCULAR: Regular rate and rhythm without murmurs, gallops, or rubs. RESPIRATORY: Breath sounds equal bilaterally. No accessory muscle use. GASTROINTESTINAL: Abdomen soft, non-tender, nondistended. MUSCULOSKELETAL: No cyanosis. Trace bilateral lower extremity edema. Right leg saphenous vein cording BACK: Nontender without obvious deformity. No CVA tenderness. Results - Labs CBC & Chem 7: 11/17/17 06:53 11/17/17 06:53 Laboratory Results - last 24 hr 11/17/17 11/17/17 11/18/17 06:53 19:35 04:25 PT 12.2 H INR 1.2 POC Glucose 206 H Hemoglobin A1c 6.7 H 11/18/17 08:11 PT INR POC Glucose 99 Hemoglobin A1c Assessment and Plan - Assessment (1) DVT (deep venous thrombosis) Code(s): I82.409 - Acute embolism and thrombosis of unspecified deep veins of unspecified lower extremity Status: Acute (2) Pulmonary embolism Code(s): I26.99 - Other pulmonary embolism without acute cor pulmonale Status : Acute (3) Drug abuse Code(s): F19.10 - Other psychoactive substance abuse, uncomplicated Status: Acute - Plan 51-year-old man with //Acute on recurrent bilateral pulmonary embolism //Right lower extremity DVT Resume Lovenox 1 mg/kg every 12 hours 1 more day Restart Coumadin 5 mg daily with INR monitoring Continue monitoring hypercoagulable state Reconsult hematology = Follow-up hematology recommendations. Appreciate assistance. //Diabetes type 2 Insulin sliding scale with fingerstick blood glucose monitoring Consider starting metformin 500 mg daily, as last A1c of 7.15 June 2015. Will recheck A1c = sugars controlled. A1c 6.7.. //Hypertension Will start patient on low-dose of lisinopril 10 mg daily = Blood pressure acceptable on current regimen. //Polysubstance abuse including cocaine Extensively counseled against //Tobacco abuse Tobacco cessation counseling provided Nicotine patch //DVT prophylaxis: Lovenox Discharge Planning: Patient will need Lovenox bridge to warfarin. Patient will need follow-up with clinic for INR.
--- NOTE | 2017-11-18 10:58 | P.DS ---
Date of admission: 11/16/17 14:03 Primary care physician: No Primary Care Physician Brief History from admission: 51-year-old man with a significant history of VTE, diabetes type 2 and cocaine abuse was recently admitted on November 11, 2017 for right lower extremity DVT and bilateral pulmonary embolism however decided to sign AMA yesterday to go smoke some crack cocaine, returned to the ED for readmission. On November 11, 2017, patient presented initially to the ED for right lower extremity pain 10 days duration. At the time of presentation he underwent ultrasound Doppler studies which was positive for DVT of the right lower extremity. A CT angiogram of the thorax was also performed and revealed evidence of pulmonary emboli with multiple filling defects. Patient was admitted and initiated on therapeutic anticoagulation with Lovenox and subsequently started on Coumadin. Patient reported a history of venous thromboembolism back in 2008 when he was diagnosed with pulmonary emboli and treated with Coumadin for up to 7 months. But, on November 15, 2017 patient decided to sign AMA to go out to smoke some crack cocaine. He now return stable with complaint of right lower extremity pain but denies any significant shortness of breath. He has no chest pain. DS: Diagnosis - Discharge Diagnosis (1) DVT (deep venous thrombosis) Status: Acute (2) Pulmonary embolism Status: Acute (3) Drug abuse Status: Acute DS: Summary Hospital Course: Patient was admitted with known history of pulmonary embolism, DVT. Patient was started on Lovenox subcu twice daily as well as warfarin. INR subtherapeutic at 1.2. Hematology was consulted and recommends Lovenox bridge to warfarin. Patient will need follow-up for INR checks. For problem based summary from most recent progress note, please see below. 51-year-old man with //Acute on recurrent bilateral pulmonary embolism //Right lower extremity DVT Resume Lovenox 1 mg/kg every 12 hours 1 more day Restart Coumadin 5 mg daily with INR monitoring Continue monitoring hypercoagulable state Reconsult hematology = Follow-up hematology recommendations. Appreciate assistance. //Diabetes type 2 Insulin sliding scale with fingerstick blood glucose monitoring Consider starting metformin 500 mg daily, as last A1c of 7.15 June 2015. Will recheck A1c = sugars controlled. A1c 6.7.. //Hypertension Will start patient on low-dose of lisinopril 10 mg daily = Blood pressure acceptable on current regimen. //Polysubstance abuse including cocaine Extensively counseled against //Tobacco abuse Tobacco cessation counseling provided Nicotine patch //DVT prophylaxis: Lovenox Discharge Planning: Patient will need Lovenox bridge to warfarin. Patient will need follow-up with clinic for INR. - Time Spent with Patient Total time spent providing and/or coordinating discharge services: Greater than 30 minutes - Quality: VTE Deep Vein Thrombosis/Pulmonary Embolism Present on Admission: Yes Exam Vital signs: Vital Signs 11/17/17 12:00 11/17/17 16:00 11/17/17 20:00 Temperature 97.6 F 98.2 F 98.2 F Pulse Rate 51 L 49 L 62 Respiratory Rate 18 18 20 Blood Pressure 152/91 H 144/81 H 147/83 H Pulse Oximetry 97 98 94 L 11/18/17 00:00 11/18/17 04:00 11/18/17 08:00 Temperature 98.0 F 98.0 F 98.0 F Pulse Rate 56 L 44 L 45 L Respiratory Rate 20 18 19 Blood Pressure 152/79 H 131/75 134/77 Pulse Oximetry 94 L 93 L 95 Intake & Output 11/17/17 11/18/17 11/18/17 18:59 06:59 18:59 Intake Total 720 / 720 Balance 720 / 720 Weight 103.4 kg Intake: Oral 720 / 720 Other: # Voids 7 1 # Bowel Movements 1 Results Procedures completed during hospitalization: No invasive procedures Labs on day of discharge: Labs from last 24 hours 11/18/17 11/18/17 11/17/17 08:11 04:25 19:35 PT 12.2 H INR 1.2 POC Glucose 99 206 H Hemoglobin A1c 11/17/17 06:53 PT INR POC Glucose Hemoglobin A1c 6.7 H Discharge Plan - Discharge Disposition Patient Disposition: 01 Discharge Home - Discharge Condition Condition: Stable - Discharge Order Discharge Orders: Discharge Order (Routine); Ordered 11/18/17 Ordered By: Jakub Win - Discharge Details Anticipated Discharge Date: 11/18/17 - Physicians Team Primary Care Provider: Primary Care Nancy Kerns Attending Provider: Jakub Win Other Providers: Elaine Yousif
[2017-11-18 12:38] VITALS: BP 146/85; PULSE 50; TEMP 97.6; O2SAT 97
== END 2017-11-18 14:48 | disposition home or self-care (01) ==
LOC: NEPD 10:11 → NEDA 14:03 → N04 16:50
PROVIDERS: ADMIT Internal Medicine; ATTEND Internal Medicine

== ENCOUNTER 2017-12-09 12:56 | Inpatient (IN) ==
--- NOTE | 2017-12-09 17:24 | ED ---
HPI General Chief complaint: Medical Clearance Stated complaint: Med clearence/Chest pain Time Seen by Provider: 12/09/17 15:39 History of Present Illness HPI narrative: 52-year-old male history of bilateral PE and DVT, on warfarin, is unsure of the doses, he did not take it for the last 3 days, he is here because he went to [facility] which is a psych facility and he was screened there for suicidal ideation, he has history of depression and was admitted multiple times for suicidal ideations, he denies any suicide attempts. I asked the patient why he does not take his warfarin, he says "he does not feel like it sometimes" . He says they would not accept him at the psych facility without being "medically cleared". Related Data Home Medications Medication Instructions Recorded Confirmed lisinopril 20 mg PO DAILY 12/09/17 12/09/17 metformin 500 mg PO BID 12/09/17 12/09/17 Previous Rx's Medication Instructions Recorded warfarin [Coumadin] 5 mg PO DAILY@1600 30 Days tab 11/18/17 Allergies Allergy/AdvReac Type Severity Reaction Status Date / Time No Known Allergies Allergy Verified 12/09/17 21:47 Review of Systems ROS: all other systems reviewed are negative PMFSH History History Provided By: Patient Medical History Medical History Alcohol withdrawal seizure (Acute) Bipolar disorder (Acute) Schizoaffective disorder (Chronic) Drug abuse (Acute) Alcohol abuse (Acute) PTSD (post-traumatic stress disorder) (Acute) History of deep venous thrombosis (DVT) of distal vein of right lower extremity (Acute) History of pulmonary embolus (PE) (Acute) Lipoma of neck (Acute) Diabetes (Chronic) HTN (hypertension) (Acute) Social History Social History Substance History: Active Abuse Second Hand Smoke Exposure: Yes Smoking Status: Current every day smoker Tobacco Type: Cigarettes How Often Do You Have a Drink Containing Alcohol: Monthly or less Recent Travel in [facility] within the Last 8 Weeks: No Recent Out of Country Travel within the Last 8 Weeks: No Exam Narrative Exam Narrative: GENERAL: Alert oriented x3 no acute distress. SKIN: Focused skin assessment warm/dry. HEAD: Atraumatic. Normocephalic. EYES: Pupils equal and round. No scleral icterus. No injection or drainage. ENT: No nasal bleeding or discharge. Mucous membranes pink and moist. NECK: Trachea midline. No JVD. CARDIOVASCULAR: Regular rate and rhythm. No murmur appreciated. RESPIRATORY: No accessory muscle use. Clear to auscultation. Breath sounds equal bilaterally. GASTROINTESTINAL: Abdomen soft, non-tender, nondistended. Hepatic and splenic margins not palpable. MUSCULOSKELETAL: No obvious deformities. No clubbing. No cyanosis. No edema. NEUROLOGICAL: Awake and alert. No obvious cranial nerve deficits. Motor grossly within normal limits. Normal speech. PSYCHIATRIC: Appropriate mood and affect; insight and judgment normal. Course Initial Documented Vital Signs Temperature 98.3 F 12/09/17 13:05 Pulse Rate 102 H 12/09/17 13:05 Respiratory Rate 20 12/09/17 13:05 Blood Pressure 148/74 H 12/09/17 13:05 Pulse Oximetry 98 12/09/17 13:05 Last Documented Vital Signs Temperature 98.5 F 12/13/17 06:08 Pulse Rate 59 L 12/13/17 06:08 Respiratory Rate 17 12/13/17 06:08 Blood Pressure 129/75 12/13/17 06:08 Pulse Oximetry 96 12/13/17 06:08 Sign Out Sign Out Data: Patient Sign Out occurred on 12/09/17 at 17:51. Patient's care was discussed, and care was transferred from Edu Patel MD to Margie Boyd DO. Sign Out Comment: pending labs, needs medical clearance before psych screen for " suicidal ideations", anticipate subtherapeutic INR, may need casework supervisor for noncompliance! Last updated by Edu Patel MD at 12/09/17 17:26 Post-Handoff Eval: Received sign out from previous team to follow up labs. Pt has a diagnosis of bilateral PE and is on coumadin. Said last coumadin was 2 days ago. Said he went to [facility] because he has suicidal ideation and has depression. Pt was medically screen but said they could not keep him because he is on coumadin so needs to come here. Patient denies being more sob than normal. O2 sat 98% on RA. He is speaking in complete sentences and this is his baseline. Labs reviewed, no leukocytosis. H/H normal. CMP unremarkable. Troponin negative. EKG does have TWI anterior leads but that are unchanged from prior EKG on . INR is subtherapeutic at 1.2. Pt is noncompliant with medication and is currently asymptomatic. He is here seeking psychiatric evaluation and wants to be admitted for psychiatric treatment. Will give him coumadin 5mg PO and educate him on the importance of taking his medications. Psych evaluation pending. Medical Decision Making MDM Narrative Medical Screen Exam Complete: Yes Emergency Medical Condition: Yes Differential Diagnosis Differential Diagnosis: medication noncompliance, sub therapeutic INR, depression, malingering, suicidal ideations Lab Data Result diagrams: 12/12/17 06:43 12/12/17 06:43 Lab Results 12/09/17 12/09/17 12/09/17 Range/Units 18:25 18:25 18:25 WBC 8.9 (4.0-11.0) th/mm3 RBC 4.47 L (4.50-5.90) mil/mm3 Hgb 14.5 (13.0-17.0) gm/dL Hct 43.2 (39.0-51.0) % MCV 96.7 (80.0-100.0) fL MCH 32.5 (27.0-34.0) pg MCHC 33.6 (32.0-36.0) % RDW 12.8 (11.6-17.2) % Plt Count 241 (150-450) th/mm3 MPV 8.5 (7.0-11.0) fL Neut % (Auto) 59.6 (16.0-70.0) % Lymph % (Auto) 31.9 (9.0-44.0) % Slope % (Auto) 5.3 (0.0-8.0) % Eos % (Auto) 2.2 (0.0-4.0) % Baso % (Auto) 1.0 (0.0-2.0) % Neut # (Auto) 5.3 (1.8-7.7) th/mm3 Lymph # (Auto) 2.8 (1.0-4.8) th/mm3 Slope # (Auto) 0.5 (0.0-0.9) th/mm3 Eos # (Auto) 0.2 (0.0-0.4) th/mm3 Baso # (Auto) 0.1 (0.0-0.2) th/mm3 WBC Differential . Differential Comment Auto diff final PT 11.7 H (9.8-11.6) sec INR 1.2 Ratio APTT 27.5 (24.3-30.1) sec Sodium (136-145) meq/L Potassium (3.5-5.1) meq/L Chloride (98-107) meq/L Carbon Dioxide (21.0-32.0) meq/L Anion Gap (5-15) meq/L BUN (7-18) mg/dL Creatinine (0.60-1.30) mg/dL Estimated GFR (>89) mL/min POC Glucose (68-110) mg/dl Random Glucose (74-106) mg/dL Calcium (8.5-10.1) mg/dL Total Bilirubin (0.2-1.0) mg/dL AST (15-37) U/L ALT (12-78) U/L Alkaline Phosphatase (45-117) U/L Total Creatine Kinase (39-308) U/L CK-MB (CK-2) (0.5-3.6) ng/mL Troponin I (0.02-0.05) ng/mL B-Natriuretic Peptide 8 (0-100) pg/mL Total Protein (6.4-8.2) g/dL Albumin (3.4-5.0) g/dL 12/09/17 12/10/17 12/11/17 Range/Units 18:25 18:39 10:53 WBC (4.0-11.0) th/mm3 RBC (4.50-5.90) mil/mm3 Hgb (13.0-17.0) gm/dL Hct (39.0-51.0) % MCV (80.0-100.0) fL MCH (27.0-34.0) pg MCHC (32.0-36.0) % RDW (11.6-17.2) % Plt Count (150-450) th/mm3 MPV (7.0-11.0) fL Neut % (Auto) (16.0-70.0) % Lymph % (Auto) (9.0-44.0) % Slope % (Auto) (0.0-8.0) % Eos % (Auto) (0.0-4.0) % Baso % (Auto) (0.0-2.0) % Neut # (Auto) (1.8-7.7) th/mm3 Lymph # (Auto) (1.0-4.8) th/mm3 Slope # (Auto) (0.0-0.9) th/mm3 Eos # (Auto) (0.0-0.4) th/mm3 Baso # (Auto) (0.0-0.2) th/mm3 WBC Differential Differential Comment PT 12.1 H (9.8-11.6) sec INR 1.2 Ratio APTT (24.3-30.1) sec Sodium 140 (136-145) meq/L Potassium 3.9 (3.5-5.1) meq/L Chloride 110 H (98-107) meq/L Carbon Dioxide 23.7 (21.0-32.0) meq/L Anion Gap 6 (5-15) meq/L BUN 9 (7-18) mg/dL Creatinine 1.04 (0.60-1.30) mg/dL Estimated GFR Greater than 89 (>89) mL/min POC Glucose 170 H (68-110) mg/dl Random Glucose 150 H (74-106) mg/dL Calcium 8.5 (8.5-10.1) mg/dL Total Bilirubin 0.3 (0.2-1.0) mg/dL AST 10 L (15-37) U/L ALT 18 (12-78) U/L Alkaline Phosphatase 59 (45-117) U/L Total Creatine Kinase 189 (39-308) U/L CK-MB (CK-2) 1.4 (0.5-3.6) ng/mL Troponin I Less than 0.02 L (0.02-0.05) ng/mL B-Natriuretic Peptide (0-100) pg/mL Total Protein 7.0 (6.4-8.2) g/dL Albumin 3.2 L (3.4-5.0) g/dL 12/11/17 12/11/17 12/12/17 Range/Units 16:15 20:14 06:26 WBC (4.0-11.0) th/mm3 RBC (4.50-5.90) mil/mm3 Hgb (13.0-17.0) gm/dL Hct (39.0-51.0) % MCV (80.0-100.0) fL MCH (27.0-34.0) pg MCHC (32.0-36.0) % RDW (11.6-17.2) % Plt Count (150-450) th/mm3 MPV (7.0-11.0) fL Neut % (Auto) (16.0-70.0) % Lymph % (Auto) (9.0-44.0) % Slope % (Auto) (0.0-8.0) % Eos % (Auto) (0.0-4.0) % Baso % (Auto) (0.0-2.0) % Neut # (Auto) (1.8-7.7) th/mm3 Lymph # (Auto) (1.0-4.8) th/mm3 Slope # (Auto) (0.0-0.9) th/mm3 Eos # (Auto) (0.0-0.4) th/mm3 Baso # (Auto) (0.0-0.2) th/mm3 WBC Differential Differential Comment PT (9.8-11.6) sec INR Ratio APTT (24.3-30.1) sec Sodium (136-145) meq/L Potassium (3.5-5.1) meq/L Chloride (98-107) meq/L Carbon Dioxide (21.0-32.0) meq/L Anion Gap (5-15) meq/L BUN (7-18) mg/dL Creatinine (0.60-1.30) mg/dL Estimated GFR (>89) mL/min POC Glucose 97 116 H 105 (68-110) mg/dl Random Glucose (74-106) mg/dL Calcium (8.5-10.1) mg/dL Total Bilirubin (0.2-1.0) mg/dL AST (15-37) U/L ALT (12-78) U/L Alkaline Phosphatase (45-117) U/L Total Creatine Kinase (39-308) U/L CK-MB (CK-2) (0.5-3.6) ng/mL Troponin I (0.02-0.05) ng/mL B-Natriuretic Peptide (0-100) pg/mL Total Protein (6.4-8.2) g/dL Albumin (3.4-5.0) g/dL 12/12/17 12/12/17 12/12/17 Range/Units 06:43 06:43 06:43 WBC 7.3 (4.0-11.0) th/mm3 RBC 4.15 L (4.50-5.90) mil/mm3 Hgb 13.5 (13.0-17.0) gm/dL Hct 39.9 (39.0-51.0) % MCV 96.0 (80.0-100.0) fL MCH 32.4 (27.0-34.0) pg MCHC 33.8 (32.0-36.0) % RDW 12.7 (11.6-17.2) % Plt Count 215 (150-450) th/mm3 MPV 8.6 (7.0-11.0) fL Neut % (Auto) 58.3 (16.0-70.0) % Lymph % (Auto) 33.7 (9.0-44.0) % Slope % (Auto) 4.9 (0.0-8.0) % Eos % (Auto) 2.3 (0.0-4.0) % Baso % (Auto) 0.8 (0.0-2.0) % Neut # (Auto) 4.3 (1.8-7.7) th/mm3 Lymph # (Auto) 2.5 (1.0-4.8) th/mm3 Slope # (Auto) 0.4 (0.0-0.9) th/mm3 Eos # (Auto) 0.2 (0.0-0.4) th/mm3 Baso # (Auto) 0.1 (0.0-0.2) th/mm3 WBC Differential . Differential Comment Auto diff final PT 12.0 H (9.8-11.6) sec INR 1.2 Ratio APTT (24.3-30.1) sec Sodium 142 (136-145) meq/L Potassium 3.7 (3.5-5.1) meq/L Chloride 108 H (98-107) meq/L Carbon Dioxide 26.4 (21.0-32.0) meq/L Anion Gap 8 (5-15) meq/L BUN 9 (7-18) mg/dL Creatinine 1.01 (0.60-1.30) mg/dL Estimated GFR Greater than 89 (>89) mL/min POC Glucose (68-110) mg/dl Random Glucose 102 (74-106) mg/dL Calcium 8.7 (8.5-10.1) mg/dL Total Bilirubin 0.2 (0.2-1.0) mg/dL AST 6 L (15-37) U/L ALT 15 (12-78) U/L Alkaline Phosphatase 52 (45-117) U/L Total Creatine Kinase (39-308) U/L CK-MB (CK-2) (0.5-3.6) ng/mL Troponin I (0.02-0.05) ng/mL B-Natriuretic Peptide (0-100) pg/mL Total Protein 6.5 (6.4-8.2) g/dL Albumin 3.1 L (3.4-5.0) g/dL 12/12/17 12/12/17 12/12/17 Range/Units 11:20 16:28 19:50 WBC (4.0-11.0) th/mm3 RBC (4.50-5.90) mil/mm3 Hgb (13.0-17.0) gm/dL Hct (39.0-51.0) % MCV (80.0-100.0) fL MCH (27.0-34.0) pg MCHC (32.0-36.0) % RDW (11.6-17.2) % Plt Count (150-450) th/mm3 MPV (7.0-11.0) fL Neut % (Auto) (16.0-70.0) % Lymph % (Auto) (9.0-44.0) % Slope % (Auto) (0.0-8.0) % Eos % (Auto) (0.0-4.0) % Baso % (Auto) (0.0-2.0) % Neut # (Auto) (1.8-7.7) th/mm3 Lymph # (Auto) (1.0-4.8) th/mm3 Slope # (Auto) (0.0-0.9) th/mm3 Eos # (Auto) (0.0-0.4) th/mm3 Baso # (Auto) (0.0-0.2) th/mm3 WBC Differential Differential Comment PT (9.8-11.6) sec INR Ratio APTT (24.3-30.1) sec Sodium (136-145) meq/L Potassium (3.5-5.1) meq/L Chloride (98-107) meq/L Carbon Dioxide (21.0-32.0) meq/L Anion Gap (5-15) meq/L BUN (7-18) mg/dL Creatinine (0.60-1.30) mg/dL Estimated GFR (>89) mL/min POC Glucose 98 114 H 104 (68-110) mg/dl Random Glucose (74-106) mg/dL Calcium (8.5-10.1) mg/dL Total Bilirubin (0.2-1.0) mg/dL AST (15-37) U/L ALT (12-78) U/L Alkaline Phosphatase (45-117) U/L Total Creatine Kinase (39-308) U/L CK-MB (CK-2) (0.5-3.6) ng/mL Troponin I (0.02-0.05) ng/mL B-Natriuretic Peptide (0-100) pg/mL Total Protein (6.4-8.2) g/dL Albumin (3.4-5.0) g/dL 12/13/17 Range/Units 06:14 WBC (4.0-11.0) th/mm3 RBC (4.50-5.90) mil/mm3 Hgb (13.0-17.0) gm/dL Hct (39.0-51.0) % MCV (80.0-100.0) fL MCH (27.0-34.0) pg MCHC (32.0-36.0) % RDW (11.6-17.2) % Plt Count (150-450) th/mm3 MPV (7.0-11.0) fL Neut % (Auto) (16.0-70.0) % Lymph % (Auto) (9.0-44.0) % Slope % (Auto) (0.0-8.0) % Eos % (Auto) (0.0-4.0) % Baso % (Auto) (0.0-2.0) % Neut # (Auto) (1.8-7.7) th/mm3 Lymph # (Auto) (1.0-4.8) th/mm3 Slope # (Auto) (0.0-0.9) th/mm3 Eos # (Auto) (0.0-0.4) th/mm3 Baso # (Auto) (0.0-0.2) th/mm3 WBC Differential Differential Comment PT (9.8-11.6) sec INR Ratio APTT (24.3-30.1) sec Sodium (136-145) meq/L Potassium (3.5-5.1) meq/L Chloride (98-107) meq/L Carbon Dioxide (21.0-32.0) meq/L Anion Gap (5-15) meq/L BUN (7-18) mg/dL Creatinine (0.60-1.30) mg/dL Estimated GFR (>89) mL/min POC Glucose 155 H (68-110) mg/dl Random Glucose (74-106) mg/dL Calcium (8.5-10.1) mg/dL Total Bilirubin (0.2-1.0) mg/dL AST (15-37) U/L ALT (12-78) U/L Alkaline Phosphatase (45-117) U/L Total Creatine Kinase (39-308) U/L CK-MB (CK-2) (0.5-3.6) ng/mL Troponin I (0.02-0.05) ng/mL B-Natriuretic Peptide (0-100) pg/mL Total Protein (6.4-8.2) g/dL Albumin (3.4-5.0) g/dL Discharge Plan Discharge Disposition Patient Disposition: 30 Still Patient Discharge Condition Condition: Stable Discharge Details Diagnosis: Noncompliance with medication regimen Physicians Team ED Provider: Margie Boyd Primary Care Provider: Primary Care Nancy Kerns Attending Provider: Ethan Rizvi Other Providers: Mark Rodriguez ; Per Patterson ; Chris High Service Status ED Status: Left Department Discharge Information Discharge Date/Time: 12/11/17 11:10
[2017-12-09 18:42] LABS: Baso # (Auto) 0.1 th/mm3 (0.0-0.2); Eos # (Auto) 0.2 th/mm3 (0.0-0.4); Eos % (Auto) 2.2 % (0.0-4.0); Hematocrit 43.2 % (39.0-51.0); Hemoglobin 14.5 gm/dL (13.0-17.0); Lymph # (Auto) 2.8 th/mm3 (1.0-4.8); Lymph % (Auto) 31.9 % (9.0-44.0); Mean Corpuscular HGB Conc 33.6 % (32.0-36.0); Mean Corpuscular Hemoglobin 32.5 pg (27.0-34.0); Mean Corpuscular Volume 96.7 fL (80.0-100.0); Mean Platelet Volume 8.5 fL (7.0-11.0); Mono # (Auto) 0.5 th/mm3 (0.0-0.9); Mono % (Auto) 5.3 % (0.0-8.0); Neut # (Auto) 5.3 th/mm3 (1.8-7.7); Neut % (Auto) 59.6 % (16.0-70.0); Platelet Count 241 th/mm3 (150-450); Red Blood Count 4.47 mil/mm3 (4.50-5.90); Red Cell Distribution Width 12.8 % (11.6-17.2); White Blood Count 8.9 th/mm3 (4.0-11.0)
[2017-12-09 18:51] LABS: Albumin 3.2 g/dL (3.4-5.0); Anion Gap 6 meq/L (5-15); Aspartate Aminotransferase 10 U/L (15-37); Blood Urea Nitrogen 9 mg/dL (7-18); Calcium 8.5 mg/dL (8.5-10.1); Carbon Dioxide 23.7 meq/L (21.0-32.0); Chloride 110 meq/L (98-107); Glomerular Filtration Rate Greater Than 89 mL/min (>89); Glucose,Random 150 mg/dL (74-106); Potassium 3.9 meq/L (3.5-5.1); Sodium 140 meq/L (136-145)
[2017-12-09 18:52] LABS: Alanine Aminotransferase 18 U/L (12-78)
[2017-12-09 18:54] LABS: Activated Partial Thrombo Time 27.5 sec (24.3-30.1); INR 1.2 Ratio; Prothrombin Time 11.7 sec (9.8-11.6)
[2017-12-09 18:55] LABS: Alkaline Phosphatase 59 U/L (45-117); Creatine Kinase 189 U/L (39-308)
[2017-12-09 19:15] LABS: Creatine Kinase MB 1.4 ng/mL (0.5-3.6)
--- NOTE | 2017-12-10 15:17 | ECG ---
Date Performed: 12/09/2017 Time Performed: 18:48:30 PTAGE: 52 years EKG: SINUS BRADYCARDIA MODERATE T-WAVE ABNORMALITY, CONSIDER ANTERIOR ISCHEMIA ABNORMAL ECG Sinc e the PREVIOUS TRACING , no significant change noted PREVIOUS TRACIN11/11/2017 13.00 DOCTOR: Abbey Bradford Interpretating Date/Time 12/10/2017 15:14:01
[2017-12-10] MEDS ORDERED: Acetaminophen 325 MG Tablet PO ONE ×2 (15:24→23:48)
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
[2017-12-11] MEDS ORDERED: Warfarin Consult Pharmacy OTHER PRN (09:42)
[2017-12-11] MEDS ORDERED: Paliperidone Inj 156 MG/ML Syringe IM SCH (10:00)
[2017-12-11] MEDS: Lisinopril 20 MG Tablet PO SCH (10:53)
[2017-12-11 11:16] LABS: INR 1.2 Ratio; Prothrombin Time 12.1 sec (9.8-11.6)
--- NOTE | 2017-12-11 11:45 | P.HPIM ---
History of Present Illness Service: [facility] Primary Care Physician: No Primary Care Physician Chief Complaint: psychosis History of Present Illness: This is a 52 y/o AAM with a PMHx of VTE, Diabetes Type 2, Schizoaffective Disorder, and cocaine abuse was recently admitted voluntarily due to increased depression with Suicidal ideation. Patient missed a dose of his Ivvega and he reports that his sx worsened. Of note, patient was Dx on November 11, 2017 with right lower extremity DVT and bilateral pulmonary embolism, he has missed 2 doses of his coumadin and is not very compliant. He admits to cocaine use 2wks ago. He does not have a PCP. Patient currently denies CP and SOB. Previous Hospitalization: On November 11, 2017, patient had a Doppler positive for DVT of the right lower extremity and CT angiogram of the thorax with evidence of pulmonary emboli with multiple filling defects. Patient was admitted and initiated on therapeutic anticoagulation with Lovenox and subsequently started on Coumadin, patient left AMA on 11/15 but them returned for readmission on 11/16 with D/C on 11/18, INR 1.2 on day of D/C. Patient reported a history of venous thromboembolism back in 2008 when he was diagnosed with pulmonary emboli and treated with Coumadin for up to 7 months. - Diagnosis (1) Hypertension (2) DVT (deep venous thrombosis) (3) Pulmonary embolism (4) Noncompliance with medication regimen (5) Schizoaffective disorder (6) Diabetes Inpatient Certification: I certify that the inpatient services were ordered in accordance with Medicare regulations governing the order. This includes certification that hospital inpatient services are reasonable and necessary and in the case of services not specified as inpatient-only under 42 CFR 419.22(n), that they are appropriately provided as inpatient services in accordance to with the 2-midnight benchmark under 43 CFR 412.3(e) Estimated Total Length of Stay (Days): 5 Plans for Post Hospital Care: Home Review of Systems All other systems reviewed negative except as stated in HPI [facility] - History History Provided By: Patient - Medical History Medical History: Medical History (Last Reviewed 12/11/17 @ 12:24 by Pham Mayfield MD) Alcohol withdrawal seizure (Acute) Bipolar disorder (Acute) Schizoaffective disorder (Chronic) Drug abuse (Acute) Alcohol abuse (Acute) PTSD (post-traumatic stress disorder) (Acute) History of deep venous thrombosis (DVT) of distal vein of right lower extremity (Acute) History of pulmonary embolus (PE) (Acute) Lipoma of neck (Acute) Diabetes (Chronic) HTN (hypertension) - Surgical History Surgical History: Surgical History (Last Updated 12/11/17 @ 12:25 by Pham Mayfield MD) No history of previous surgery - Family History Family History: Family History (Last Reviewed 12/11/17 @ 08:54 by Ethan Rizvi MD) Sister Lupus Mother Congestive heart failure COPD (chronic obstructive pulmonary disease) Father Chronic kidney disease Prostate cancer Other Osteoarthritis - Tobacco History Second Hand Smoke Exposure: Yes Tobacco Use In Past 30 Days: Yes Smoking Status: Current every day smoker Tobacco Type: Cigarettes - Alcohol History How Often Do You Have a Drink Containing Alcohol: 2 to 3 times a week - Substance Use History Substance History: Active Abuse - Substance Use Type Crack/Cocaine Status: Active Route Used: Inhalation - Travel History Recent Travel in the [facility] Within the Last 8 Weeks: No Recent Travel Out of the Country Within the Last 8 Weeks: No - Immunization History Tetanus Immunization: >5 Years Hx Influenza Vaccine This Season: No Medications and Allergies Active Medications: Active Medications Acetaminophen (Tylenol) 650 mg PO Q4H PRN PRN Reason: Pain 1-5 or Temp >101F Al Hydrox/Mg Hydrox/Simethicone (Mag-Al Plus Susp Liq) 30 ml PO Q6H PRN PRN Reason: DYSPEPSIA Al Hydroxide/Mg Hydroxide (Milk Of Magnesia Liq) 30 ml PO Q12H PRN PRN Reason: Mild Constipation Diphenhydramine HCl (Benadryl) 50 mg PO HS PRN PRN Reason: INSOMNIA Hydroxyzine HCl (Atarax) 50 mg PO Q6H PRN PRN Reason: ANXIETY Lisinopril (Prinivil) 20 mg PO DAILY [facility] Last Admin: 12/11/17 10:53 Dose: 20 mg Metformin HCl (Glucophage) 500 mg PO BID [facility] Last Admin: 12/11/17 10:52 Dose: 500 mg Paliperidone Palmitate (Invega Sustenna Inj) 156 mg IM Q28D [facility] Pharmacy Profile Note (Coumadin Consult Pharmacy) 1 each OTHER UNSCH PRN PRN Reason: PHARMACY DOCUMENTATION Warfarin Sodium (Coumadin) 5 mg PO DAILY@1600 [facility] Allergies Allergy/AdvReac Type Severity Reaction Status Date / Time No Known Allergies Allergy Verified 12/09/17 21:47 Home Medications Medication Instructions Recorded Confirmed Type RX: lisinopril 20 mg PO DAILY 12/09/17 12/09/17 History RX: metformin 500 mg PO BID 12/09/17 12/09/17 History Exam Vital signs: Vital Signs 12/10/17 15:00 12/10/17 18:41 12/10/17 22:49 Temperature 98.5 F 98.4 F Pulse Rate 75 73 70 Respiratory Rate 19 18 Blood Pressure 126/64 144/88 H 126/70 Pulse Oximetry 98 99 97 12/11/17 05:09 Temperature 97.8 F Pulse Rate 53 L Respiratory Rate 16 Blood Pressure 130/73 Pulse Oximetry 98 Narrative: GENERAL: well nourished AAM, in NAD, sitting comfortably SKIN: Warm and dry. HEAD: Normocephalic. EYES: No scleral icterus. No injection or drainage. NECK: Supple, trachea midline. No JVD or lymphadenopathy. CARDIOVASCULAR: Regular rate and rhythm without murmurs, gallops, or rubs. RESPIRATORY: Breath sounds equal bilaterally. No accessory muscle use. GASTROINTESTINAL: Abdomen soft, non-tender, nondistended. MUSCULOSKELETAL: No cyanosis, or edema. BACK: Nontender without obvious deformity. No CVA tenderness. NEURO/PSYCH: pleasant, AAOx3, strength 5/5, sensation intact with light touch Results - Labs CBC & Chem 7: 12/09/17 18:25 12/09/17 18:25 Caprini VTE Risk Assessment Caprini VTE Risk Assessment: Moderate/High Risk (score >= 2) Caprini Risk Assessment Model: Point Value = 1 Point Value = 2 Point Value = 3 Point Value = 5 Age 41-60 Minor surgery BMI > 25 kg/m2 Swollen legs Varicose veins or History of unexplained or recurrent spontaneous Oral contraceptives or hormone replacement Sepsis (< 1 month) Serious lung disease, including pneumonia (< 1 month) Abnormal pulmonary function Acute myocardial infarction Congestive heart failure (< 1 month) History of inflammatory bowel disease Medical patient at bed rest Age 61-74 Arthroscopic surgery Major open surgery (> 45 min) Laparoscopic surgery (> 45 min) Malignancy Confined to bed (> 72 hours) Immobilizing plaster cast Central venous access Age >= 75 History of VTE Family history of VTE Factor V Leiden Prothrombin 50342D Lupus anticoagulant Anticardiolipin antibodies Elevated serum homocysteine Heparin-induced thrombocytopenia Other congenital or acquired thrombophilia Stroke (< 1 month) Elective arthroplasty Hip, pelvis, or leg fracture Acute spinal cord injury (< 1 month) Prophylaxis Regimen: Total Risk Factor Score Risk Level Prophylaxis Regimen 0-1 Low Early ambulation 2 Moderate Order ONE of the following: *Sequential Compression Device (SCD) *Heparin 5000 units SQ BID 3-4 Higher Order ONE of the following medications: *Heparin 5000 units SQ TID *Enoxaparin/Lovenox 40 mg SQ daily (WT < 150 kg, CrCl > 30 mL/min) *Enoxaparin/Lovenox 30 mg SQ daily (WT < 150 kg, CrCl > 10-29 mL/min) *Enoxaparin/Lovenox 30 mg SQ BID (WT < 150 kg, CrCl > 30 mL/min) AND/OR *Sequential Compression Device (SCD) 5 or more Highest Order ONE of the following medications: *Heparin 5000 units SQ TID (Preferred with Epidurals) *Enoxaparin/Lovenox 40 mg SQ daily (WT < 150 kg, CrCl > 30 mL/min) *Enoxaparin/Lovenox 30 mg SQ daily (WT < 150 kg, CrCl > 10-29 mL/min) *Enoxaparin/Lovenox 30 mg SQ BID (WT < 150 kg, CrCl > 30 mL/min) AND *Sequential Compression Device (SCD) Assessment and Plan - Assessment (1) Hypertension Code(s): I10 - Essential (primary) hypertension Status: Chronic (2) DVT (deep venous thrombosis) Code(s): I82.409 - Acute embolism and thrombosis of unspecified deep veins of unspecified lower extremity Status: Acute (3) Pulmonary embolism Code(s): I26.99 - Other pulmonary embolism without acute cor pulmonale Status : Acute (4) Noncompliance with medication regimen Code(s): Z91.14 - Patient's other noncompliance with medication regimen Status : Chronic (5) Schizoaffective disorder Code(s): F25.9 - Schizoaffective disorder, unspecified Status: Chronic (6) Diabetes Code(s): E11.9 - Type 2 diabetes mellitus without complications Status: Chronic - Plan This is a 52 y/o AAM with a PMHx of VTE, Diabetes Type 2, Schizoaffective Disorder, and cocaine abuse was recently admitted voluntarily due to increased depression with Suicidal ideation, we have been asked to manage his medically. Of note, on November 11, 2017, patient had a Doppler positive for DVT of the right lower extremity and CT angiogram of the thorax with evidence of pulmonary emboli with multiple filling defects. Patient was admitted and initiated on therapeutic anticoagulation with Lovenox and subsequently started on Coumadin, patient left AMA on 11/15 but them returned for readmission on 11/16 with D/C on 11/18 , INR 1.2 on day of D/C, HD#1 1. Schizoaffective Disorder with Psychotic Features/Suicidal Ideation -Managed By Psych -Appreciate assistance with mgmt -Will be offered Invega, Atarax PRN 2. DVT/PE -Dx on 11/11, patient asymptomatic and with stable VS -Managed by Hem (Dr. Pate), will consult today -INR 1.2 today, cont. to monitor -On Coumadin 5mg daily (pharmacy dosing) -Patient admits to missing 2 doses, consider bridging with Lovenox pending Hem reccs Chest CTA 11/11: There is evidence of pulmonary emboli with multiple filling defects in the pulmonary arteries in branches involving the posterior right lower lung. No acute pulmonary infiltrates. Venous Doppler 11/11: There is nonocclusive DVT in the right popliteal vein and right peroneal vein. There is nonocclusive thrombus in the superficial system involving the mid greater saphenous vein. Echo 11/12: Mildly dilated left ventricle. The left ventricular systolic function is normal with an estimated ejection fraction in the range of 55-60%. There is trace tricuspid valve regurgitation. Trivial pulmonary valve regurgitation. Grossly normal RV, appears to have normal function. 3. HTN -stable -Cont. home Lisinopril 20mg QD -Cont. to monitor 4. DM Type II -HgbA1c 6.7% on 11/2017 -Hold home Metformin for now, on SSI with AC/HS 5. Alcohol/Cocaine Abuse -CIWA protocol -no signs of WD -will closely monitor 6. DVT PPX: Warfarin 7. Dispo: resume Coumadin, f/u Hem reccs for bridging with Lovenox (he was managed by them last admission), F/U INR Code Status: full Discussed Condition With: patient, RN (5) Schizoaffective disorder Qualifiers: Schizoaffective disorder type: bipolar Qualified Code(s): F25.0 - Schizoaffective disorder, bipolar type
[2017-12-11] MEDS ORDERED: LORazepam 1 MG Tablet PO PRN (12:35)
[2017-12-11] MEDS ORDERED: Haloperidol Inj 5 MG/ML Ampul IV.PUSH PRN (12:35)
[2017-12-11] MEDS ORDERED: Dextrose 50% in Water 50 ML Vial IV.PUSH PRN (12:35)
[2017-12-11] MEDS: Acetaminophen 325 MG Tablet PO PRN ×2 (15:10→20:22)
[2017-12-11] MEDS: Insulin NovoLIN Regular Correctional Sugar Inj SQ SCH ×2 (16:44→20:25)
--- NOTE | 2017-12-11 18:43 | MB ---
cc: Mark Rodriguez MD DATE: 12/11/2017 REASON FOR CONSULTATION: Patient with a need for anticoagulation due to previous DVT and pulmonary emboli with inconsistent behavior. PATIENT PROFILE: The patient is a 52-year-old male originally from [place], [place]. He has lived in [place] since the . He is and has 4 children. He is a recovering alcoholic and currently does not drink. He is a drug addict and last time he used drugs was about a week ago as per his history. These drugs include cocaine. In the past, he did landscaping. HISTORY OF PRESENT ILLNESS: The patient has had a history of at least 2, if not 3 DVTs involving the lower extremities, and at least 2 pulmonary embolus. He had a CT of the thorax on 11/11/2017, which revealed evidence of a pulmonary embolus with multiple filling defects in the pulmonary arteries. On 11/11/2017, he had an ultrasound of the right leg due to pain and was found to have nonocclusive DVT in the right popliteal fossa. There was also nonocclusive thrombus in the superficial system involving the mid great saphenous vein. He was seen by Dr. Pate who is my partner on 11/11/2017, and it was recommended that he be treated with a Lovenox and then Coumadin. This in fact was done and he was taking Coumadin as an outpatient. He is now admitted to the [facility] where apparently they are looking for a medical clearance, and I believe this involves the fact that he has had a pulmonary embolus and DVT. Several days before admission, he did not take the Coumadin. He just forgot to. There has been a history of noncompliance in the past. This is supported by the fact that on 12/09/2017, he had an INR of 11.7. In the past, he had been treated with Coumadin on several occasions. Obtaining regular INRs has been difficult for him due to his bipolar disorder. He also was treated with Xarelto in the past for approximately 3-4 months. He found this much easier, which is not surprising, as it does not require monitoring. He did not have any bleeding. He had no complications with his Xarelto and had no DVT or pulmonary emboli during this time period. PAST SURGICAL HISTORY: The patient has had resection of 2 lipomas. PAST MEDICAL HISTORY: 1. Alcohol abuse. 2. Cocaine abuse. 3. History of alcohol seizures. 4. Bipolar disorder. 5. Diabetes. 6. Hypertension. 7. Noncompliance. 8. At least 2 DVT and at least 2 pulmonary emboli. ALLERGIES: NO KNOWN ALLERGIES. MEDICATIONS PRIOR TO ADMISSION: 1. Coumadin 5 mg a day. 2. Metformin 500 mg twice a day. 3. Lisinopril 20 mg a day. FAMILY HISTORY: There is no family history of a hypercoagulable disorder. REVIEW OF SYSTEMS: No change in vision or hearing. No chest pain, palpitations. No fever, night sweats, chills. No abdominal pain. No problems with urination. No bone pain. No bleeding. No unusual bruising. PHYSICAL EXAMINATION: well-appearing gentleman. He is afebrile. Pulse is 63, respiratory rate 18, blood pressure 140/80, O2 saturation 98%. HEENT: Head is normocephalic. Sclerae and conjunctivae are normal. Oropharynx unremarkable. No cervical, supraclavicular, axillary or inguinal adenopathy. HEART: Regular rate and rhythm. LUNGS: Clear. ABDOMEN: Soft. No hepatosplenomegaly. EXTREMITIES: No edema. MUSCULOSKELETAL: No bone pain. NEUROLOGIC: No weakness. Cognition and affect appear normal and he is reasonable and engaging. LABORATORY STUDIES: 12/09/2017, hemoglobin 14.5, white count 8900, and platelets 241,000. PT today on 12/11/2017, is 12.1. Electrolytes, BUN, creatinine and liver function tests are normal. ASSESSMENT AND PLAN: The patient is a 52-year-old male. He has had 2 or 3 deep vein thrombosis involving the lower extremities and approximately 2 pulmonary emboli. He needs lifetime anticoagulation. I would not recommend Coumadin at the present time. Coumadin requires significant monitoring and he is not reliable about the monitoring. Coumadin has multiple drug interactions and this is an individual who uses multiple recreational drugs. Coumadin has a higher risk of intracerebral hemorrhage than would Xarelto or apixaban. I asked him if he has ever thought of using an anticoagulant for suicide. He said no and he would never to do this. RECOMMENDATIONS: I strongly recommend that he be treated with Xarelto 20 mg once a day. Compliance will be easier as the medicine is taken once a day and does not require monitoring. The risk of intracerebral hemorrhage is less with Xarelto than with Coumadin. I have discontinued the Coumadin. I have ordered Xarelto 20 mg a day. I have requested that case management find a way to obtain Xarelto for this gentleman as I think it is a better choice than Coumadin. When one looks at his admitting PT and INR, it is apparent that he was not anticoagulated. I have also requested he have a followup appointment with his site head, Dr. Pate, 3 weeks following discharge. I told him if he does not take the anticoagulation one could place an IVC filter to prevent pulmonary emboli but this would not prevent lower extremity venous thrombosis and in fact would increase the risk. An IVC filter is not a good solution. Thank you for the consultation. MD JOHN Mcnamara/anthony , 04:46 PM , 05:00 PM MTDAmelie
[2017-12-11] MEDS: Rivaroxaban 20 MG Tablet PO SCH (20:39)
[2017-12-12] MEDS: Insulin NovoLIN Regular Correctional Sugar Inj SQ SCH ×4 (07:08→20:00)
[2017-12-12 07:32] LABS: Baso # (Auto) 0.1 th/mm3 (0.0-0.2); Baso % (Auto) 0.8 % (0.0-2.0); Eos # (Auto) 0.2 th/mm3 (0.0-0.4); Eos % (Auto) 2.3 % (0.0-4.0); Hematocrit 39.9 % (39.0-51.0); Hemoglobin 13.5 gm/dL (13.0-17.0); Lymph # (Auto) 2.5 th/mm3 (1.0-4.8); Lymph % (Auto) 33.7 % (9.0-44.0); Mean Corpuscular HGB Conc 33.8 % (32.0-36.0); Mean Corpuscular Hemoglobin 32.4 pg (27.0-34.0); Mean Platelet Volume 8.6 fL (7.0-11.0); Mono # (Auto) 0.4 th/mm3 (0.0-0.9); Mono % (Auto) 4.9 % (0.0-8.0); Neut # (Auto) 4.3 th/mm3 (1.8-7.7); Neut % (Auto) 58.3 % (16.0-70.0); Platelet Count 215 th/mm3 (150-450); Red Blood Count 4.15 mil/mm3 (4.50-5.90); Red Cell Distribution Width 12.7 % (11.6-17.2); White Blood Count 7.3 th/mm3 (4.0-11.0)
[2017-12-12 07:36] LABS: INR 1.2 Ratio
[2017-12-12 08:09] LABS: Albumin 3.1 g/dL (3.4-5.0); Anion Gap 8 meq/L (5-15); Aspartate Aminotransferase 6 U/L (15-37); Blood Urea Nitrogen 9 mg/dL (7-18); Calcium 8.7 mg/dL (8.5-10.1); Carbon Dioxide 26.4 meq/L (21.0-32.0); Chloride 108 meq/L (98-107); Glomerular Filtration Rate Greater Than 89 mL/min (>89); Glucose,Random 102 mg/dL (74-106); Potassium 3.7 meq/L (3.5-5.1); Sodium 142 meq/L (136-145)
[2017-12-12 08:14] LABS: Alanine Aminotransferase 15 U/L (12-78); Alkaline Phosphatase 52 U/L (45-117); Total Protein 6.5 g/dL (6.4-8.2)
[2017-12-12] MEDS: Lisinopril 20 MG Tablet PO SCH (08:43)
[2017-12-12] MEDS: Rivaroxaban 20 MG Tablet PO SCH (08:43)
[2017-12-12] MEDS: Acetaminophen 325 MG Tablet PO PRN (08:51)
--- NOTE | 2017-12-12 11:08 | P.PNPSY ---
Subjective Remarks: Reviewed electronic medical records and discussed case with staff. Follow-up was conducted in the patient's room with ANAND Flores present. Patient states that the voices are starting to subside. He feels better after some sleep. Asking of a nicotine patch. Denies SI/HI. Will change his diet to 1800 ADA diabetic diet. Review of Systems All other systems reviewed negative except as stated in HPI Mental Status Examination Appearance: Appropriate Consciousness: Alert Orientation: x4 Motor Activity: Normal gait Speech: Unremarkable Language: Adequate Fund of Knowledge: Adequate Attention and Concentration: Adequate Memory: Unremarkable Mood: Other (Euthymic to mildly dysphoric) Affect: Other (Slight decreased range and intensity) Thought Process & Associations: Intact Thought Content: Appropriate Hallucination Type: Auditory (Somewhat command nature) Delusion Type: None Suicidal Ideation: No Suicidal Plan: No Suicidal Intention: No Homicidal Ideation: No Homicidal Plan: No Homicidal Intention: No Insight: Fair Judgment: Impulsive Assessment and Plan - Assessment (1) Schizoaffective schizophrenia Code(s): F25.0 - Schizoaffective disorder, bipolar type Status: Acute (2) Cocaine abuse Code(s): F14.10 - Cocaine abuse, uncomplicated Status: Acute - Plan Plan: Estimated LOS: [] days Continue current treatment plan. Patient will be seen by Psychiatrist on Wednesday. Justification for Continued Inpatient Stay: Moving patient to a less restrictive environment may result in his decompensation. Request Healthcare Surrogate/Guardian Advocate?: No
--- NOTE | 2017-12-12 11:40 | P.PNIM ---
Subjective Interval history: This is a 52 y/o AAM with a PMHx of VTE, Diabetes Type 2, Schizoaffective Disorder, and cocaine abuse was recently admitted voluntarily due to increased depression with Suicidal ideation. Patient missed a dose of his Ivvega and he reports that his sx worsened. Of note, patient was Dx on November 11, 2017 with right lower extremity DVT and bilateral pulmonary embolism, he has missed 2 doses of his coumadin and is not very compliant. He admits to cocaine use 2wks ago. He does not have a PCP. Patient currently denies CP and SOB. Previous Hospitalization: On November 11, 2017, patient had a Doppler positive for DVT of the right lower extremity and CT angiogram of the thorax with evidence of pulmonary emboli with multiple filling defects. Patient was admitted and initiated on therapeutic anticoagulation with Lovenox and subsequently started on Coumadin, patient left AMA on 11/15 but them returned for readmission on 11/16 with D/C on 11/18, INR 1.2 on day of D/C. Patient reported a history of venous thromboembolism back in 2008 when he was diagnosed with pulmonary emboli and treated with Coumadin for up to 7 months. 12-12 patient has been started on Xarelto 20 mg p[address] daily by Dr. RODRIGUEZ OF HEMATOLOGY Will need case management for help with discharge No new complaint States he wants to go home Physical Exam Vital signs: Vital Signs 12/11/17 13:01 12/11/17 18:22 12/12/17 06:11 Temperature 97.5 F L 98.2 F 98.2 F Pulse Rate 63 70 54 L Respiratory Rate 18 17 18 Blood Pressure 139/80 153/86 H 149/74 H Pulse Oximetry 98 97 96 Intake & Output 12/11/17 12/12/17 12/12/17 18:59 06:59 18:59 Weight 97.522 kg Other: Weight On Admission 97.522 kg Results - Labs CBC & Chem 7: 12/12/17 06:43 12/12/17 06:43 Laboratory Results - last 24 hr 12/11/17 12/11/17 12/12/17 16:15 20:14 06:26 WBC RBC Hgb Hct MCV MCH MCHC RDW Plt Count MPV Neut % (Auto) Lymph % (Auto) Bartholomew % (Auto) Eos % (Auto) Baso % (Auto) Neut # (Auto) Lymph # (Auto) Bartholomew # (Auto) Eos # (Auto) Baso # (Auto) WBC Differential Differential Comment PT INR Sodium Potassium Chloride Carbon Dioxide Anion Gap BUN Creatinine Estimated GFR POC Glucose 97 116 H 105 Random Glucose Calcium Total Bilirubin AST ALT Alkaline Phosphatase Total Protein Albumin 12/12/17 12/12/17 12/12/17 06:43 06:43 06:43 WBC 7.3 RBC 4.15 L Hgb 13.5 Hct 39.9 MCV 96.0 MCH 32.4 MCHC 33.8 RDW 12.7 Plt Count 215 MPV 8.6 Neut % (Auto) 58.3 Lymph % (Auto) 33.7 Bartholomew % (Auto) 4.9 Eos % (Auto) 2.3 Baso % (Auto) 0.8 Neut # (Auto) 4.3 Lymph # (Auto) 2.5 Bartholomew # (Auto) 0.4 Eos # (Auto) 0.2 Baso # (Auto) 0.1 WBC Differential . Differential Comment Auto diff final PT 12.0 H INR 1.2 Sodium 142 Potassium 3.7 Chloride 108 H Carbon Dioxide 26.4 Anion Gap 8 BUN 9 Creatinine 1.01 Estimated GFR Greater than 89 POC Glucose Random Glucose 102 Calcium 8.7 Total Bilirubin 0.2 AST 6 L ALT 15 Alkaline Phosphatase 52 Total Protein 6.5 Albumin 3.1 L 12/12/17 11:20 WBC RBC Hgb Hct MCV MCH MCHC RDW Plt Count MPV Neut % (Auto) Lymph % (Auto) Bartholomew % (Auto) Eos % (Auto) Baso % (Auto) Neut # (Auto) Lymph # (Auto) Bartholomew # (Auto) Eos # (Auto) Baso # (Auto) WBC Differential Differential Comment PT INR Sodium Potassium Chloride Carbon Dioxide Anion Gap BUN Creatinine Estimated GFR POC Glucose 98 Random Glucose Calcium Total Bilirubin AST ALT Alkaline Phosphatase Total Protein Albumin Assessment and Plan - Assessment (1) Hypertension Code(s): I10 - Essential (primary) hypertension Status: Chronic (2) DVT (deep venous thrombosis) Code(s): I82.409 - Acute embolism and thrombosis of unspecified deep veins of unspecified lower extremity Status: Acute (3) Pulmonary embolism Code(s): I26.99 - Other pulmonary embolism without acute cor pulmonale Status : Acute (4) Noncompliance with medication regimen Code(s): Z91.14 - Patient's other noncompliance with medication regimen Status : Chronic (5) Schizoaffective disorder Code(s): F25.9 - Schizoaffective disorder, unspecified Status: Chronic (6) Diabetes Code(s): E11.9 - Type 2 diabetes mellitus without complications Status: Chronic - Plan This is a 52 y/o AAM with a PMHx of VTE, Diabetes Type 2, Schizoaffective Disorder, and cocaine abuse was recently admitted voluntarily due to increased depression with Suicidal ideation, we have been asked to manage his medically. Of note, on November 11, 2017, patient had a Doppler positive for DVT of the right lower extremity and CT angiogram of the thorax with evidence of pulmonary emboli with multiple filling defects. Patient was admitted and initiated on therapeutic anticoagulation with Lovenox and subsequently started on Coumadin, patient left AMA on 11/15 but them returned for readmission on 11/16 with D/C on 11/18 , INR 1.2 on day of D/C, 1. Schizoaffective Disorder with Psychotic Features/Suicidal Ideation -Managed By Psych -Appreciate assistance with mgmt -Will be offered Invega, Atarax PRN 2. DVT/PE -Dx on 11/11, patient asymptomatic and with stable VS -Managed by Hem (Dr. Pate), will consult today -INR 1.2 today, cont. to monitor -Switch to Xarelto 20 mg p[address] daily by Dr. Rodriguez of oncology Chest CTA 11/11: There is evidence of pulmonary emboli with multiple filling defects in the pulmonary arteries in branches involving the posterior right lower lung. No acute pulmonary infiltrates. Venous Doppler 11/11: There is nonocclusive DVT in the right popliteal vein and right peroneal vein. There is nonocclusive thrombus in the superficial system involving the mid greater saphenous vein. Echo 11/12: Mildly dilated left ventricle. The left ventricular systolic function is normal with an estimated ejection fraction in the range of 55-60%. There is trace tricuspid valve regurgitation. Trivial pulmonary valve regurgitation. Grossly normal RV, appears to have normal function. 3. HTN -stable -Cont. home Lisinopril 20mg QD -Cont. to monitor 4. DM Type II -HgbA1c 6.7% on 11/2017 -Hold home Metformin for now, on SSI with AC/HS 5. Alcohol/Cocaine Abuse -[facility] protocol -no signs of WD -will closely monitor 6. DVT PPX: Now on Xarelto 20 mg p.o. daily 7. Dispo: resume Xarelto 20 mg p.o. daily --now no needs for INRs Code Status: Full code Discussed Condition With: RN and patient Discharge Planning: Pending psychiatric clearance will need help with case management for outpatient Xarelto 20 mg p.o. daily (5) Schizoaffective disorder Qualifiers: Schizoaffective disorder type: bipolar Qualified Code(s): F25.0 - Schizoaffective disorder, bipolar type
[2017-12-12] MEDS: Aluminum/Magnesium/Simethacone Susp 30 ML UDC PO PRN (19:52)
[2017-12-13] MEDS: Insulin NovoLIN Regular Correctional Sugar Inj SQ SCH ×4 (08:11→20:50)
[2017-12-13] MEDS: Lisinopril 20 MG Tablet PO SCH (09:12)
[2017-12-13] MEDS: Rivaroxaban 20 MG Tablet PO SCH (09:12)
--- NOTE | 2017-12-13 12:49 | P.PNIM ---
Subjective Interval history: This is a 52 y/o AAM with a PMHx of VTE, Diabetes Type 2, Schizoaffective Disorder, and cocaine abuse was recently admitted voluntarily due to increased depression with Suicidal ideation. Patient missed a dose of his Ivvega and he reports that his sx worsened. Of note, patient was Dx on November 11, 2017 with right lower extremity DVT and bilateral pulmonary embolism, he has missed 2 doses of his coumadin and is not very compliant. He admits to cocaine use 2wks ago. He does not have a PCP. Patient currently denies CP and SOB. Previous Hospitalization: On November 11, 2017, patient had a Doppler positive for DVT of the right lower extremity and CT angiogram of the thorax with evidence of pulmonary emboli with multiple filling defects. Patient was admitted and initiated on therapeutic anticoagulation with Lovenox and subsequently started on Coumadin, patient left AMA on 11/15 but them returned for readmission on 11/16 with D/C on 11/18, INR 1.2 on day of D/C. Patient reported a history of venous thromboembolism back in 2008 when he was diagnosed with pulmonary emboli and treated with Coumadin for up to 7 months. 12-12 patient has been started on Xarelto 20 mg p[address] daily by Dr. RODRIGUEZ OF HEMATOLOGY Will need case management for help with discharge No new complaint States he wants to go home 12-13 WILL NEED HELP WITH XARELTO AT [facility] RN AND PT Physical Exam Vital signs: Vital Signs 12/12/17 17:45 12/13/17 06:08 Temperature 98.5 F Pulse Rate 55 L 59 L Respiratory Rate 18 17 Blood Pressure 127/78 129/75 Pulse Oximetry 96 96 Narrative: GENERAL: well nourished AAM, in NAD, sitting comfortably SKIN: Warm and dry. HEAD: Normocephalic. EYES: No scleral icterus. No injection or drainage. NECK: Supple, trachea midline. No JVD or lymphadenopathy. CARDIOVASCULAR: Regular rate and rhythm without murmurs, gallops, or rubs. RESPIRATORY: Breath sounds equal bilaterally. No accessory muscle use. GASTROINTESTINAL: Abdomen soft, non-tender, nondistended. MUSCULOSKELETAL: No cyanosis, or edema. BACK: Nontender without obvious deformity. No CVA tenderness. NEURO/PSYCH: pleasant, AAOx3, strength 5/5, sensation intact with light touch Results - Labs CBC & Chem 7: 12/12/17 06:43 12/12/17 06:43 Laboratory Results - last 24 hr 12/12/17 12/12/17 12/13/17 16:28 19:50 06:14 POC Glucose 114 H 104 155 H 12/13/17 11:38 POC Glucose 135 H - Procedures NONE Assessment and Plan - Assessment (1) Hypertension Code(s): I10 - Status: Chronic (2) DVT (deep venous thrombosis) Code(s): I82.409 - Status: Acute (3) Pulmonary embolism Code(s): I26.99 - Status: Acute (4) Noncompliance with medication regimen Code(s): Z91.14 - Status: Chronic (5) Schizoaffective disorder Code(s): F25.9 - Schizoaffective disorder, unspecified Status: Chronic (6) Diabetes Code(s): E11.9 - Type 2 diabetes mellitus without complications Status: Chronic - Plan This is a 52 y/o AAM with a PMHx of VTE, Diabetes Type 2, Schizoaffective Disorder, and cocaine abuse was recently admitted voluntarily due to increased depression with Suicidal ideation, we have been asked to manage his medically. Of note, on November 11, 2017, patient had a Doppler positive for DVT of the right lower extremity and CT angiogram of the thorax with evidence of pulmonary emboli with multiple filling defects. Patient was admitted and initiated on therapeutic anticoagulation with Lovenox and subsequently started on Coumadin, patient left AMA on 11/15 but them returned for readmission on 11/16 with D/C on 11/18 , INR 1.2 on day of D/C, 1. Schizoaffective Disorder with Psychotic Features/Suicidal Ideation -Managed By Psych -Appreciate assistance with mgmt -Will be offered Invega, Atarax PRN 2. DVT/PE -Dx on 11/11, patient asymptomatic and with stable VS -Managed by Hem (Dr. Pate), will consult today -INR 1.2 today, cont. to monitor -Switch to Xarelto 20 mg p.o. daily by Dr. Rodriguez of oncology Chest CTA 11/11: There is evidence of pulmonary emboli with multiple filling defects in the pulmonary arteries in branches involving the posterior right lower lung. No acute pulmonary infiltrates. Venous Doppler 11/11: There is nonocclusive DVT in the right popliteal vein and right peroneal vein. There is nonocclusive thrombus in the superficial system involving the mid greater saphenous vein. Echo 11/12: Mildly dilated left ventricle. The left ventricular systolic function is normal with an estimated ejection fraction in the range of 55-60%. There is trace tricuspid valve regurgitation. Trivial pulmonary valve regurgitation. Grossly normal RV, appears to have normal function. 3. HTN -stable -Cont. home Lisinopril 20mg QD -Cont. to monitor 4. DM Type II -HgbA1c 6.7% on 11/2017 -Hold home Metformin for now, on SSI with AC/HS 5. Alcohol/Cocaine Abuse -[facility] protocol -no signs of WD -will closely monitor 6. DVT PPX: Now on Xarelto 20 mg p.o. daily 7. Dispo: resume Xarelto 20 mg p.o. daily --now no needs for INRs Code Status: FULL CODE Discussed Condition With: RN AND PT Discharge Planning: Pending psychiatric clearance will need help with case management for outpatient Xarelto 20 mg p.o. daily (5) Schizoaffective disorder Qualifiers: Schizoaffective disorder type: bipolar Qualified Code(s): F25.0 - Schizoaffective disorder, bipolar type
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
--- NOTE | 2017-12-13 15:53 | P.TTN ---
- Patient Problems Problems: 1. Discharge planning 2. Medication compliance 3. Knowledge deficit 4. Lack of coping skills - Progress Toward Goals Provider Present: Dr. Aylin Rizvi (SMA follow up. Care coordination when ready) - Documentation Teaching Recipient: Patient
[2017-12-14 06:19] VITALS: TEMP 97.6
[2017-12-14] MEDS: Insulin NovoLIN Regular Correctional Sugar Inj SQ SCH ×4 (08:35→20:55)
[2017-12-14] MEDS: Lisinopril 20 MG Tablet PO SCH (09:05)
[2017-12-14] MEDS: Rivaroxaban 20 MG Tablet PO SCH (09:05)
--- NOTE | 2017-12-14 13:26 | P.PNPSY ---
Subjective Remarks: Patient seen today in his room with floor staff, chart reviewed, patient compliant medications. Patient calm cooperative pleasant today denying suicidality homicidality voice or visions. He is anticipating his discharge for tomorrow. Review of Systems All other systems reviewed negative except as stated in HPI Mental Status Examination Appearance: Appropriate Consciousness: Alert Orientation: x4 Motor Activity: Normal gait Speech: Unremarkable Language: Adequate Fund of Knowledge: Adequate Attention and Concentration: Adequate Memory: Unremarkable Mood: Other (Euthymic to mildly dysphoric) Affect: Other (Slight decreased range and intensity) Thought Process & Associations: Intact Thought Content: Appropriate Hallucination Type: Auditory (Markedly diminished) Delusion Type: None Suicidal Ideation: No Suicidal Plan: No Suicidal Intention: No Homicidal Ideation: No Homicidal Plan: No Homicidal Intention: No Insight: Adequate Judgment: Adequate Assessment and Plan - Assessment (1) Cocaine abuse Code(s): F14.10 - Cocaine abuse, uncomplicated Status: Acute (2) Schizoaffective disorder Code(s): F25.9 - Schizoaffective disorder, unspecified Status: Chronic (3) History of deep venous thrombosis (DVT) of distal vein of right lower extremity Code(s): Z86.718 - Personal history of other venous thrombosis and embolism Status: Acute (4) History of pulmonary embolus (PE) Code(s): Z86.711 - Personal history of pulmonary embolism Status: Acute - Plan Plan: Patient mood continues to improve, now denying suicidality homicidality voice or visions. We will anticipate discharge to his own home tomorrow Justification for Continued Inpatient Stay: Discharge tomorrow to home Request Healthcare Surrogate/Guardian Advocate?: No (2) Schizoaffective disorder Qualifiers: Schizoaffective disorder type: bipolar Qualified Code(s): F25.0 - Schizoaffective disorder, bipolar type
[2017-12-14 18:39] VITALS: BP 138/69; PULSE 98; RESP 17; O2SAT 98
[2017-12-15] MEDS: Rivaroxaban 20 MG Tablet PO SCH (08:47)
[2017-12-15] MEDS: Lisinopril 20 MG Tablet PO SCH (08:47)
[2017-12-15] MEDS: Insulin NovoLIN Regular Correctional Sugar Inj SQ SCH (08:49)
[2017-12-15] MEDS: Aluminum/Magnesium/Simethacone Susp 30 ML UDC PO PRN (09:14)
[2017-12-15] MEDS: Acetaminophen 325 MG Tablet PO PRN (09:14)
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
--- NOTE | 2017-12-15 12:08 | P.TTN ---
- Patient Problems Problems: 1. Discharge planning 2. Medication compliance 3. Knowledge deficit 4. Lack of coping skills - Progress Toward Goals Provider Present: Dr. Aylin Rizvi (SMA follow up. Care coordination when ready) , Dr. Reina See Provider Input: Dmitri - History of substance abuse, Patient is scheduled for dicharge today to home. Nurse Input: Krystal- Cooperative, medication compliant Psychiatric Counselors Present: Isidro Spence Jr., RCSWI, Other Group Spec/RT/OT/ROBERTS Present: Heena Price, GUDELIA, Reyes Schultz, OT Group Spec/RT/OT/ROBERTS Input: Heena - Patient attends select groups, is appropriate, engages in projects Clinical Coordinator: Tg Miranda [facility] - Documentation Teaching Recipient: Patient
== END 2017-12-15 12:25 | disposition home or self-care (01) ==
LOC: NEPD 12:56 → NEDA 12-11 08:45 → H260 12-11 11:14
PROVIDERS: ADMIT Psychiatry & Neurology Psychiatry; ATTEND Psychiatry & Neurology Psychiatry